=== PATIENT | female | born 1985 | race Caucasian/White ===

== ENCOUNTER 2017-01-28 19:26 | Observation (INO) | payer MEDICAID ==
--- NOTE | 2017-01-28 20:05 | EDM.PDOC ---
ED HPI GENERAL MEDICAL PROBLEM - General Chief Complaint: Genitourinary Problem Stated Complaint: ABD/BACK PAIN-PAINFUL URINATION Time Seen by Provider: 01/28/17 19:40 Source of Information: Reports: Patient History Limitations: Reports: No Limitations - History of Present Illness INITIAL COMMENTS - FREE TEXT/NARRATIVE: pt arrived with severe rt sided flank pain and extending into the groin. She has pain when she voids. Onset: Gradual Duration: Day(s):, Other (Pt has been ill close to 1 week. ) Location: Reports: Abdomen Associated Symptoms: Reports: Fever/Chills, Loss of Appetite, Weakness lower back pain Pain Score (Numeric/FACES): 7 abdominal pain Pain Score (Numeric/FACES): 7 - Related Data Allergies Allergy/AdvReac Type Severity Reaction Status Date / Time tramadol Allergy Seizure Verified 01/28/17 19:44 Home Meds: Home Meds Methadone HCl [Methadone] 180 mg PO DAILY 01/28/17 [History] Ciprofloxacin HCl [Cipro] 500 mg PO BID #10 tablet 01/30/17 [Rx] Phenazopyridine [Pyridium] 100 mg PO TID PRN #15 tab 01/30/17 [Rx] oxyCODONE 5 mg PO Q6H PRN #15 tab 01/30/17 [Rx] Past Medical History Gastrointestinal History: Reports: Hemorrhoids Genitourinary History: Reports: UTI, Recurrent 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: , Other (See Below) Other OB/BYN History: Hx of cysts on bilateral ovaries Musculoskeletal History: Reports: Other (See Below) Other Musculoskeletal History: siatica Neurological History: Reports: Seizure Psychiatric History: Reports: Addiction, Anxiety, Depression, Other (See Below) Other Psychiatric History: opiates - Infectious Disease History Infectious Disease History: Reports: Chicken Pox Social & Family History - Tobacco Use Smoking Status *Q: Never Smoker - Caffeine Use Caffeine Use: Reports: Coffee, Energy Drinks, Soda, Tea - Recreational Drug Use Recreational Drug Use: No ED ROS GENERAL - Review of Systems Review Of Systems: See Below Constitutional: Reports: Chills, Malaise HEENT: Reports: No Symptoms Respiratory: Reports: No Symptoms Cardiovascular: Reports: No Symptoms Endocrine: Reports: No Symptoms GI/Abdominal: Reports: Abdominal Pain, Other (pt has burning when she passes her urine and she has flank pain on the rt and suprapupic pain. ) : Reports: Dysuria, Flank Pain, Frequency, Hematuria Musculoskeletal: Reports: No Symptoms Skin: Reports: No Symptoms Neurological: Reports: No Symptoms ED EXAM, GI/ABD - Physical Exam Exam: See Below Text/Narrative:: pt arrved with sig rt flank pain. Her urine looks very infected. She feels very ill in general. She has been chilling. Exam Limited By: No Limitations General Appearance: Alert, Moderate Distress Ears: Normal TMs Nose: Normal Inspection Throat/Mouth: Normal Inspection Head: Atraumatic Neck: Normal Inspection Respiratory/Chest: No Respiratory Distress Cardiovascular: Regular Rate, Rhythm GI/Abdominal Exam: Tender, Other (pt has tenderness in the rt flank area. She also has sig supra pupic tenderness. She has dysuria when she voids. ) (Female) Exam: Deferred Rectal (Female) Exam: Deferred Back Exam: Normal Inspection Extremities: Normal Inspection Neurological: Alert, Oriented, Normal Cognition Psychiatric: Depressed Mood Course - Vital Signs Last Recorded V/S: Last Vital Signs Temp 37.2 C 01/30/17 12:28 Pulse 74 01/30/17 12:28 Resp 16 01/30/17 12:28 BP 118/69 01/30/17 12:28 Pulse Ox 95 01/30/17 12:28 - Orders/Labs/Meds Labs: Laboratory Tests 01/28/17 01/28/17 01/28/17 Range/Units 20:04 20:14 20:14 WBC 7.1 (4.5-11.0) K/uL RBC 4.39 (3.30-5.50) M/uL Hgb 12.9 (12.0-15.0) g/dL Hct 37.0 (36.0-48.0) % MCV 84 (80-98) fL MCH 29 (27-31) pg MCHC 35 (32-36) % Plt Count 233 (150-400) K/uL Neut % (Auto) 35 L (36-66) % Lymph % (Auto) 51 H (24-44) % [place] % (Auto) 9 H (2-6) % Eos % (Auto) 5 H (2-4) % Baso % (Auto) 1 (0-1) % Sodium 139 L (140-148) mmol/L Potassium 4.0 (3.6-5.2) mmol/L Chloride 103 (100-108) mmol/L Carbon Dioxide 27 (21-32) mmol/L Anion Gap 13.0 (5.0-14.0) mmol/L BUN 8 (7-18) mg/dL Creatinine 0.8 (0.6-1.0) mg/dL Est Cr Clr Drug Dosing 84.29 mL/min Estimated GFR (MDRD) > 60 (>60) Glucose 103 (74-106) mg/dL Lactic Acid (0.4-2.0) mmol/L Calcium 9.1 (8.5-10.1) mg/dL Total Bilirubin 0.2 (0.2-1.0) mg/dL AST 17 (15-37) U/L ALT 49 (12-78) U/L Alkaline Phosphatase 124 H (46-116) U/L Total Protein 7.2 (6.4-8.2) g/dL Albumin 3.4 (3.4-5.0) g/dL Globulin 3.8 H (2.3-3.5) g/dL Albumin/Globulin Ratio 0.9 L (1.2-2.2) Urine Color [place] Urine Appearance Clear Urine pH 6.0 (4.5-8.0) Ur Specific [place] 1.020 (1.008-1.030) Urine Protein 500 H (NEGATIVE) mg/dL Urine Glucose (UA) Normal (NEGATIVE) mg/dL Urine Ketones Negative (NEGATIVE) mg/dL Urine Occult Blood Negative (NEGATIVE) Urine Nitrite Positive H (NEGATIVE) Urine Bilirubin Large (NEGATIVE) Urine Urobilinogen >=12 H (NORMAL) mg/dL Ur Leukocyte Esterase Moderate (NEGATIVE) Urine RBC 5-10 H (0-5) Urine WBC 30-40 H (0-5) Ur Epithelial Cells Moderate Amorphous Sediment Not seen Urine Bacteria Many Urine Mucus Few Urine Other Urine HCG, Qual Urine Opiates Screen (NEGATIVE) Ur Oxycodone Screen (NEGATIVE) Urine Methadone Screen (NEGATIVE) Ur Propoxyphene Screen (NEGATIVE) Ur Barbiturates Screen (NEGATIVE) Ur Tricyclics Screen (NEGATIVE) Ur Phencyclidine Scrn (NEGATIVE) Ur Amphetamine Screen (NEGATIVE) U Methamphetamines Scrn (NEGATIVE) Urine MDMA Screen (NEGATIVE) U Benzodiazepines Scrn (NEGATIVE) U Cocaine Metab Screen (NEGATIVE) U Marijuana (THC) Screen (NEGATIVE) 01/28/17 01/28/17 01/28/17 Range/Units 20:14 21:24 22:30 WBC (4.5-11.0) K/uL RBC (3.30-5.50) M/uL Hgb (12.0-15.0) g/dL Hct (36.0-48.0) % MCV (80-98) fL MCH (27-31) pg MCHC (32-36) % Plt Count (150-400) K/uL Neut % (Auto) (36-66) % Lymph % (Auto) (24-44) % [place] % (Auto) (2-6) % Eos % (Auto) (2-4) % Baso % (Auto) (0-1) % Sodium (140-148) mmol/L Potassium (3.6-5.2) mmol/L Chloride (100-108) mmol/L Carbon Dioxide (21-32) mmol/L Anion Gap (5.0-14.0) mmol/L BUN (7-18) mg/dL Creatinine (0.6-1.0) mg/dL Est Cr Clr Drug Dosing mL/min Estimated GFR (MDRD) (>60) Glucose (74-106) mg/dL Lactic Acid 1.4 (0.4-2.0) mmol/L Calcium (8.5-10.1) mg/dL Total Bilirubin (0.2-1.0) mg/dL AST (15-37) U/L ALT (12-78) U/L Alkaline Phosphatase (46-116) U/L Total Protein (6.4-8.2) g/dL Albumin (3.4-5.0) g/dL Globulin (2.3-3.5) g/dL Albumin/Globulin Ratio (1.2-2.2) Urine Color Urine Appearance Urine pH (4.5-8.0) Ur Specific [place] (1.008-1.030) Urine Protein (NEGATIVE) mg/dL Urine Glucose (UA) (NEGATIVE) mg/dL Urine Ketones (NEGATIVE) mg/dL Urine Occult Blood (NEGATIVE) Urine Nitrite (NEGATIVE) Urine Bilirubin (NEGATIVE) Urine Urobilinogen (NORMAL) mg/dL Ur Leukocyte Esterase (NEGATIVE) Urine RBC (0-5) Urine WBC (0-5) Ur Epithelial Cells Amorphous Sediment Urine Bacteria Urine Mucus Urine Other Urine HCG, Qual Negative Urine Opiates Screen Negative (NEGATIVE) Ur Oxycodone Screen Negative (NEGATIVE) Urine Methadone Screen Positive H (NEGATIVE) Ur Propoxyphene Screen Negative (NEGATIVE) Ur Barbiturates Screen Negative (NEGATIVE) Ur Tricyclics Screen Negative (NEGATIVE) Ur Phencyclidine Scrn Negative (NEGATIVE) Ur Amphetamine Screen Negative (NEGATIVE) U Methamphetamines Scrn Negative (NEGATIVE) Urine MDMA Screen Negative (NEGATIVE) U Benzodiazepines Scrn Positive H (NEGATIVE) U Cocaine Metab Screen Negative (NEGATIVE) U Marijuana (THC) Screen Negative (NEGATIVE) Meds: Medications Discontinued Medications Generic Name Dose Route Start Last Admin Trade Name Freq PRN Reason Stop Dose Admin Acetaminophen 650 mg 01/28/17 23:46 Tylenol PO Q4H PRN Pain (Mild 1-3)/fever Albuterol 2.5 mg 01/28/17 23:46 Proventil Neb Soln NEB Q4H PRN Shortness Of Breath/wheezing Docusate Sodium 100 mg 01/28/17 23:46 01/30/17 08:32 Colace PO 100 mg BID PRN Administration Constipation Enoxaparin Sodium 40 mg 01/29/17 09:00 01/30/17 08:19 Lovenox SUBCUT 40 mg DAILY BRYANT Administration Hydromorphone HCl 0.5 mg 01/28/17 20:49 01/28/17 20:52 Dilaudid IVPUSH 01/28/17 20:50 0.5 mg ONETIME ONE Administration Hydromorphone HCl 1 mg 01/28/17 22:56 01/28/17 23:05 Dilaudid IVPUSH 01/28/17 22:57 1 mg ONETIME ONE Administration Sodium Chloride 1,000 mls @ 999 mls/hr 01/28/17 20:15 01/28/17 20:06 Normal Saline IV 999 mls/hr ASDIRECTED BRYANT Administration Levofloxacin/Dextrose 500 mg/ 100 mls @ 100 mls/hr 01/28/17 21:02 01/28/17 21 :08 Premix IV 01/28/17 22:01 100 mls/hr ONETIME ONE Administration Sodium Chloride 1,000 mls @ 6,306 mls/hr 01/28/17 21:15 Normal Saline IV ASDIRECTED BRYANT Sodium Chloride 1,000 mls @ 999 mls/hr 01/28/17 21:15 01/28/17 21:13 Normal Saline IV 999 mls/hr ASDIRECTED BRYANT Administration Levofloxacin/Dextrose 500 mg/ 100 mls @ 100 mls/hr 01/29/17 21:00 Premix IV Q24H BRYANT Sodium Chloride 1,000 mls @ 125 mls/hr 01/28/17 23:46 01/29/17 08:03 Normal Saline IV 125 mls/hr ASDIRECTED BRYANT Administration Sodium Chloride 1,000 mls @ 75 mls/hr 01/29/17 09:30 01/29/17 19:44 Normal Saline IV 75 mls/hr ASDIRECTED BRYANT Administration Ceftriaxone Sodium 2 gm/ 50 mls @ 100 mls/hr 01/29/17 21:00 01/29/17 20:40 Sodium Chloride IV 100 mls/hr Q24H BRYANT Administration Ibuprofen 800 mg 01/28/17 23:46 01/29/17 07:51 Motrin PO 800 mg Q6H PRN Administration Pain (mild 1-3) Influenza Virus Vaccine 60 mcg 01/29/17 18:00 01/29/17 17:37 Fluzone Quad [id number] IM 01/29/17 18:01 Not Given ONETIME ONE Ketorolac Tromethamine 30 mg 01/28/17 20:26 01/28/17 20:33 Toradol IVPUSH 01/28/17 20:27 30 mg ONETIME ONE Administration Lorazepam 1 mg 01/28/17 23:46 Ativan IV Q6H PRN Nausea/Vomiting Methadone HCl 180 mg 01/29/17 12:00 01/29/17 12:47 Methadone PO Not Given DAILY BRYANT Morphine Sulfate 2 mg 01/28/17 23:46 01/30/17 08:25 Morphine IVPUSH 2 mg Q2H PRN Administration Pain (severe 7-10) Ondansetron HCl 4 mg 01/28/17 23:46 01/29/17 09:54 Zofran Odt PO 4 mg Q6H PRN Administration Nausea able to take PO Ondansetron HCl 4 mg 01/28/17 23:46 Zofran IV Q4H PRN Nausea/Vomiting Oxycodone/Acetaminophen 1 tab 01/28/17 23:46 01/30/17 12:26 Percocet 325-5 Mg PO 1 tab Q4H PRN Administration Pain (moderate 4-6) Pantoprazole Sodium 40 mg 01/29/17 09:00 Protonix Iv IVPUSH DAILY BRYANT Pantoprazole Sodium 40 mg 01/29/17 09:00 01/30/17 08:19 Protonix PO 40 mg ACBREAKFAST BRYANT Administration Phenazopyridine HCl 190 mg 01/28/17 21:15 01/28/17 21:59 Urinary Pain Relief PO 01/28/17 21:16 190 mg ONETIME ONE Administration Phenazopyridine HCl 190 mg 01/29/17 09:29 01/30/17 05:32 Urinary Pain Relief PO 190 mg TIDPC PRN Administration Dysuria Zolpidem Tartrate 5 mg 01/28/17 23:46 Ambien PO BEDTIME PRN Sleep Departure - Departure Time of Disposition: 12:30 Disposition: Admitted As Inpatient 66 Condition: Fair Clinical Impression: Kidney infection, Pyelonephritis - Discharge Information
[2017-01-28] MEDS ORDERED: Sodium Chloride 0.9% 1,000 ML IV SCH ×3 (20:15→21:15)
[2017-01-28] MEDS ORDERED: Ketorolac 30 MG/ML SDV IVPUSH ONE (20:26)
[2017-01-28] MEDS ORDERED: HYDROmorphone 0.5 MG/0.5 ML Syringe IVPUSH ONE (20:49)
[2017-01-28] MEDS ORDERED: Levofloxacin/Dextrose 5%-Water 500 MG in Premix Bag 1 BAG IV ONE (21:02)
[2017-01-28] MEDS ORDERED: Phenazopyridine 95 MG Tab PO ONE (21:15)
[2017-01-28] MEDS ORDERED: Iopamidol 612 MG/ML 150 ML Bottle IV SCH (21:30)
[2017-01-28] MEDS ORDERED: Sodium Chloride 0.9% 100 ML IV SCH (21:30)
[2017-01-28] MEDS ORDERED: HYDROmorphone 1 MG/ML Syringe IVPUSH ONE (22:56)
--- NOTE | 2017-01-28 23:14 | PCM.HP ---
H&P History of Present Illness - General Date of Service: 01/28/17 Admit Problem/Dx: Admission Diagnosis/Problem Admission Diagnosis/Problem Pyelonephritis Source of Information: Patient, Significant Other (Same Sex Partner) History Limitations: Reports: No Limitations - History of Present Illness Initial Comments - Free Text/Narative: pt arrived with severe right sided flank pain and extending into the groin. She has pain when she voids. She reports has been sick for the past 3 to 7 days. feeling nauseated, dry heaves. severe back and low abdomen pain. labs done is ER , CBC, CMP, lactic acid; normal. Urine with micro; +WBC, + nitrate, packed WBC, +leukocytes Imaging; CT abdomen - pelvis negative past medical history -reports opioid addiction -Methadone 180mg daily, her Partner was surprised she was still taking this, then Ms. Randall, reports stopped taking this 5 days ago, was supposed to be dosed tomorrow at [place], [place]. Onset of Symptoms: Reports: Gradual Duration of Symptoms: Reports: Day(s):, Getting Worse Location: Reports: Abdomen, Back, Generalized (feeling of unwellness. ) Quality: Reports: Burning (with voiding), Stabbing, Throbbing Severity: Severe Improves with: Reports: Medication Worsens with: Reports: None Associated Symptoms: Reports: Fever/Chills (report no fever, just chills.), Nausea/Vomiting, Weakness lower back pain Pain Score (Numeric/FACES): 7 abdominal pain Pain Score (Numeric/FACES): 7 - Related Data Allergies/Adverse Reactions: Allergies Allergy/AdvReac Type Severity Reaction Status Date / Time tramadol Allergy Seizure Verified 01/28/17 19:44 Home Medications: Home Meds Methadone HCl [Methadone] 180 mg PO DAILY 01/28/17 [History] Past Medical History Gastrointestinal History: Reports: Hemorrhoids Genitourinary History: Reports: UTI, Recurrent 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: , Other (See Below) Other OB/BYN History: Hx of cysts on bilateral ovaries Musculoskeletal History: Reports: Other (See Below) Other Musculoskeletal History: siatica Neurological History: Reports: Seizure Psychiatric History: Reports: Addiction, Anxiety, Depression, Other (See Below) Other Psychiatric History: opiates - Infectious Disease History Infectious Disease History: Reports: Chicken Pox Social & Family History - Tobacco Use Smoking Status *Q: Former Smoker Used Tobacco, but Quit: Yes Month Tobacco Last Used: quit in 2011 - Caffeine Use Caffeine Use: Reports: Coffee, Energy Drinks, Soda, Tea - Recreational Drug Use Recreational Drug Use: No Drug Use in Last 12 Months: No Recreational Drug Last Use: has been in [facility] since July 2015. - Sexual History Sexual History: Reports: Same Sex Partner - Living Situation & Occupation Living situation: Reports: with Significant Other Occupation: Unemployed (lives with Same Sex partner, Ms. Rm has 4 children ages 2, 10, 14 and 17 yrs[address] [facility] H&P Review of Systems - Review of Systems: Review Of Systems: See Below General: Reports: Chills, Weakness, Decreased Appetite HEENT: Reports: No Symptoms Pulmonary: Reports: No Symptoms Cardiovascular: Reports: No Symptoms Gastrointestinal: Reports: Abdominal Pain, Nausea, Vomiting (dry heaves intermittently) Genitourinary: Reports: Dysuria, Frequency, Burning, Pain, Urgency, Flank Pain ( bilateral ) Musculoskeletal: Reports: Back Pain Skin: Reports: Pallor Psychiatric: Reports: Anxiety Hematologic/Lymphatic: Reports: No Symptoms Immunologic: Reports: No Symptoms Exam - Exam Exam: See Below - Vital Signs Vital Signs: Last Vital Signs Temp 37.6 C 01/28/17 20:58 Pulse 80 01/28/17 20:58 Resp 17 01/28/17 20:58 BP 125/83 01/28/17 20:58 Pulse Ox 96 01/28/17 20:58 Weight: 87.9 kg - Exam General: Alert, Oriented, Cooperative, Sedated, Other (pallor noted. ) HEENT: PERRLA, Conjunctiva Clear, EACs Clear, EOMI, Hearing Intact, Mucosa Moist & [place], Nares Patent, Normal Nasal Septum, Posterior Pharynx Clear, Pupils Equal, Pupils Reactive Neck: Supple, Trachea Midline, 2 Lungs: Clear to Auscultation, Normal Respiratory Effort Cardiovascular: Regular Rate, Regular Rhythm, Normal S1, Normal S2 GI/Abdominal Exam: Normal Bowel Sounds, Soft, Non-Tender, No Organomegaly, No Distention, No Abnormal Bruit, No Mass, Pelvis Stable (Female) Exam: Deferred Rectal (Female) Exam: Deferred Back Exam: Normal Inspection, CVA Tenderness (R), CVA Tenderness (L), Muscle Spasm Extremities: Normal Inspection, Normal Range of Motion, Non-Tender, No Pedal Edema, Normal Capillary Refill Peripheral Pulses: 2+: Dorsalis Pedis (L), Dorsalis Pedis (R) Skin: Warm, Dry, Intact Neurological: Reflexes Equal Bilateral Neuro Extensive - Mental Status: Alert, Oriented x3, Normal Mood/Affect, Normal Cognition Psychiatric: Alert, Normal Affect, Normal Mood - Patient Data Lab Results Last 24 hrs: Laboratory Results - last 24 hr 01/28/17 01/28/17 01/28/17 Range/Units 20:04 20:14 20:14 WBC 7.1 (4.5-11.0) K/uL RBC 4.39 (3.30-5.50) M/uL Hgb 12.9 (12.0-15.0) g/dL Hct 37.0 (36.0-48.0) % MCV 84 (80-98) fL MCH 29 (27-31) pg MCHC 35 (32-36) % Plt Count 233 (150-400) K/uL Neut % (Auto) 35 L (36-66) % Lymph % (Auto) 51 H (24-44) % [place] % (Auto) 9 H (2-6) % Eos % (Auto) 5 H (2-4) % Baso % (Auto) 1 (0-1) % Sodium 139 L (140-148) mmol/L Potassium 4.0 (3.6-5.2) mmol/L Chloride 103 (100-108) mmol/L Carbon Dioxide 27 (21-32) mmol/L Anion Gap 13.0 (5.0-14.0) mmol/L BUN 8 (7-18) mg/dL Creatinine 0.8 (0.6-1.0) mg/dL Est Cr Clr Drug Dosing 84.29 mL/min Estimated GFR (MDRD) > 60 (>60) Glucose 103 (74-106) mg/dL Lactic Acid (0.4-2.0) mmol/L Calcium 9.1 (8.5-10.1) mg/dL Total Bilirubin 0.2 (0.2-1.0) mg/dL AST 17 (15-37) U/L ALT 49 (12-78) U/L Alkaline Phosphatase 124 H (46-116) U/L Total Protein 7.2 (6.4-8.2) g/dL Albumin 3.4 (3.4-5.0) g/dL Globulin 3.8 H (2.3-3.5) g/dL Albumin/Globulin Ratio 0.9 L (1.2-2.2) Urine Color [place] Urine Appearance Clear Urine pH 6.0 (4.5-8.0) Ur Specific [place] 1.020 (1.008-1.030) Urine Protein 500 H (NEGATIVE) mg/dL Urine Glucose (UA) Normal (NEGATIVE) mg/dL Urine Ketones Negative (NEGATIVE) mg/dL Urine Occult Blood Negative (NEGATIVE) Urine Nitrite Positive H (NEGATIVE) Urine Bilirubin Large (NEGATIVE) Urine Urobilinogen >=12 H (NORMAL) mg/dL Ur Leukocyte Esterase Moderate (NEGATIVE) Urine RBC 5-10 H (0-5) Urine WBC 30-40 H (0-5) Ur Epithelial Cells Moderate Amorphous Sediment Not seen Urine Bacteria Many Urine Mucus Few Urine Other Urine HCG, Qual Urine Opiates Screen (NEGATIVE) Ur Oxycodone Screen (NEGATIVE) Urine Methadone Screen (NEGATIVE) Ur Propoxyphene Screen (NEGATIVE) Ur Barbiturates Screen (NEGATIVE) Ur Tricyclics Screen (NEGATIVE) Ur Phencyclidine Scrn (NEGATIVE) Ur Amphetamine Screen (NEGATIVE) U Methamphetamines Scrn (NEGATIVE) Urine MDMA Screen (NEGATIVE) U Benzodiazepines Scrn (NEGATIVE) U Cocaine Metab Screen (NEGATIVE) U Marijuana (THC) Screen (NEGATIVE) 01/28/17 01/28/17 01/28/17 Range/Units 20:14 21:24 22:30 WBC (4.5-11.0) K/uL RBC (3.30-5.50) M/uL Hgb (12.0-15.0) g/dL Hct (36.0-48.0) % MCV (80-98) fL MCH (27-31) pg MCHC (32-36) % Plt Count (150-400) K/uL Neut % (Auto) (36-66) % Lymph % (Auto) (24-44) % [place] % (Auto) (2-6) % Eos % (Auto) (2-4) % Baso % (Auto) (0-1) % Sodium (140-148) mmol/L Potassium (3.6-5.2) mmol/L Chloride (100-108) mmol/L Carbon Dioxide (21-32) mmol/L Anion Gap (5.0-14.0) mmol/L BUN (7-18) mg/dL Creatinine (0.6-1.0) mg/dL Est Cr Clr Drug Dosing mL/min Estimated GFR (MDRD) (>60) Glucose (74-106) mg/dL Lactic Acid 1.4 (0.4-2.0) mmol/L Calcium (8.5-10.1) mg/dL Total Bilirubin (0.2-1.0) mg/dL AST (15-37) U/L ALT (12-78) U/L Alkaline Phosphatase (46-116) U/L Total Protein (6.4-8.2) g/dL Albumin (3.4-5.0) g/dL Globulin (2.3-3.5) g/dL Albumin/Globulin Ratio (1.2-2.2) Urine Color Urine Appearance Urine pH (4.5-8.0) Ur Specific [place] (1.008-1.030) Urine Protein (NEGATIVE) mg/dL Urine Glucose (UA) (NEGATIVE) mg/dL Urine Ketones (NEGATIVE) mg/dL Urine Occult Blood (NEGATIVE) Urine Nitrite (NEGATIVE) Urine Bilirubin (NEGATIVE) Urine Urobilinogen (NORMAL) mg/dL Ur Leukocyte Esterase (NEGATIVE) Urine RBC (0-5) Urine WBC (0-5) Ur Epithelial Cells Amorphous Sediment Urine Bacteria Urine Mucus Urine Other Urine HCG, Qual Negative Urine Opiates Screen Negative (NEGATIVE) Ur Oxycodone Screen Negative (NEGATIVE) Urine Methadone Screen Positive H (NEGATIVE) Ur Propoxyphene Screen Negative (NEGATIVE) Ur Barbiturates Screen Negative (NEGATIVE) Ur Tricyclics Screen Negative (NEGATIVE) Ur Phencyclidine Scrn Negative (NEGATIVE) Ur Amphetamine Screen Negative (NEGATIVE) U Methamphetamines Scrn Negative (NEGATIVE) Urine MDMA Screen Negative (NEGATIVE) U Benzodiazepines Scrn Positive H (NEGATIVE) U Cocaine Metab Screen Negative (NEGATIVE) U Marijuana (THC) Screen Negative (NEGATIVE) Result Diagrams: 01/28/17 20:14 01/28/17 20:14 *Q Meaningful Use (ADM) - VTE *Q VTE Criteria *Q: - Stroke *Q Stroke Criteria *Q: - AMI *Q AMI Criteria *Q: - Problem List (1) Pyelonephritis SNOMED Code(s): 27399908 ICD Code: N12 - TUBULO-INTERSTITIAL NEPHRITIS, NOT SPCF ACUTE OR CHRONIC Status: Acute Priority: High Current Visit: Yes (2) Opioid type dependence in remission SNOMED Code(s): 677777162 ICD Code: F11.21 - OPIOID DEPENDENCE, IN REMISSION Status: Acute Priority : High Current Visit: Yes (3) Methadone maintenance therapy patient SNOMED Code(s): 326379273 ICD Code: F11.20 - OPIOID DEPENDENCE, UNCOMPLICATED Status: Acute Priority: High Current Visit: Yes Problem List Initiated/Reviewed/Updated: Yes Orders Last 24hrs: Active Orders 24 hr Category Date Time Status Patient Status Manage Transfer [TRANSFER] Routine ADT 01/28/17 22:33 Active Abdomen Pelvis wo Cont [CT] Stat Exams 01/28/17 21:21 Taken CULTURE BLOOD [BC] Urgent Lab 01/28/17 20:25 Received CULTURE BLOOD [BC] Urgent Lab 01/28/17 20:38 Received CULTURE URINE [RM] Stat Lab 01/28/17 20:53 Received Sodium Chloride 0.9% [Normal Saline] 1,000 ml Med 01/28/17 20:15 Active IV ASDIRECTED Sodium Chloride 0.9% [Normal Saline] 1,000 ml Med 01/28/17 21:15 Active IV ASDIRECTED Blood Culture x2 Reflex Set [OM.PC] Urgent Oth 01/28/17 20:16 Ordered Resuscitation Status Routine Resus Stat 01/28/17 22:44 Ordered Medication Orders Sodium Chloride (Normal Saline) 1,000 mls @ 999 mls/hr IV ASDIRECTED [facility] Last Admin: 01/28/17 20:06 Dose: 999 mls/hr Sodium Chloride (Normal Saline) 1,000 mls @ 999 mls/hr IV ASDIRECTED [facility] Last Admin: 01/28/17 21:13 Dose: 999 mls/hr Assessment/Plan Comment:: ASSESSMENT / PLAN -pt arrived with severe right sided flank pain and extending into the groin. She has pain when she voids. She reports has been sick for the past 3 to 7 days. feeling nauseated, dry heaves. severe back and low abdomen pain. labs done is ER , CBC, CMP, lactic acid; normal. Urine with micro; +WBC, + nitrate, packed WBC, +leukocytes Imaging; CT abdomen - pelvis negative past medical history -reports opioid addiction -Methadone 180mg daily, her Partner was surprised she was still taking this, then Ms. Randall, reports stopped taking this 5 days ago, was supposed to be dosed tomorrow at [place], [place]. Plan -Admit Observation [facility] for further monitoring Pyelonephritis -Levaquin 500 mg IV every 24 hours -Iv fluids Normal Saline at 125ml/hr -pain medications ordered. -urine and blood cultures pending -Advise to notify nurses of any fever, chills, worsen pain or other symptoms -And a.m. labs: CBC, BMP,. Opioid Type dependence in remission, Methadone maintenance therapy -Methadone 180 mg daily, conflicts if she is taking this medication, will not order until further evaluation -consulted with Hospitalist, lizy to treat for pain with narcotic or NSAIDS Maintenance issues -Orders home meds: -Nutrition: Regular diet -Peters catheter not indicated at this time -DVT:Lovenox 30mg subcut daily -GI Prophalaxis; Protonix 40mg daily CODE STATUS: Full Admission status: Admit to Observation -I expect this patient to stay less than 24 hours, not to exceed 96 hours for evaluation and management of this problem. Disposition: home with family Primary care provider:Dr. Melani Vera Hospitalist: Dr. Hurtado
[2017-01-28] MEDS ORDERED: LORazepam 2 MG/ML MDV IV PRN (23:46)
[2017-01-28] MEDS ORDERED: Albuterol 0.083% 2.5 MG/3 ML Neb Soln NEB PRN (23:46)
[2017-01-28] MEDS ORDERED: Zolpidem 5 MG Tab PO PRN (23:46)
[2017-01-28] MEDS ORDERED: Acetaminophen 325 MG Tab PO PRN (23:46)
[2017-01-28] MEDS ORDERED: Ondansetron 4 MG/2 ML SDV IV PRN (23:46)
[2017-01-28] MEDS ORDERED: Ondansetron 4 MG Tab.DIS PO PRN (23:46)
[2017-01-28] MEDS ORDERED: Ibuprofen 800 MG Tab PO PRN (23:46)
[2017-01-29] MEDS: Acetaminophen/oxyCODONE 325-5 MG Tab PO PRN ×4 (00:26→23:33)
[2017-01-29] MEDS: Sodium Chloride 0.9% 1,000 ML IV SCH ×2 (00:26→08:03)
[2017-01-29] MEDS: Docusate Sodium 100 MG Cap PO PRN ×3 (00:54→20:39)
[2017-01-29] MEDS: Morphine 2 MG/ML Syringe IVPUSH PRN ×5 (03:46→20:39)
[2017-01-29] MEDS ORDERED: FLU Vacc QS 2017-18 (36mos UP)/PF 60 MCG/0.5 ML Syringe IM SCH (09:00)
[2017-01-29] MEDS ORDERED: Pantoprazole 40 MG Vial IVPUSH SCH (09:00)
[2017-01-29] MEDS: Pantoprazole 40 MG Tab.CR PO SCH (09:26)
[2017-01-29] MEDS: Enoxaparin 40 MG/0.4 ML Syringe SUBCUT SCH (09:26)
[2017-01-29] MEDS ORDERED: Sodium Chloride 0.9% 1,000 ML IV SCH (09:30)
--- NOTE | 2017-01-29 09:33 | PCM.PN ---
- General Info Date of Service: 01/29/17 Functional Status: Reports: Pain Controlled, Tolerating Diet - Review of Systems General: Denies: Fever Gastrointestinal: Reports: Abdominal Pain Genitourinary: Reports: Dysuria Systems Review Comment:: No acute events since admission. Pain control improving but patient still reporting moderate lower abdominal pain. Also some mild epigastric pain. No complaints of nausea and tolerated breakfast well. No significant fevers since the time of admission. - Patient Data Vitals - Most Recent: Last Vital Signs Temp 36.3 C 01/29/17 07:21 Pulse 73 01/29/17 07:21 Resp 16 01/29/17 07:21 BP 121/63 01/29/17 07:21 Pulse Ox 94 L 01/29/17 07:21 Weight - Most Recent: 87.9 kg I&O - Last 24 Hours: Intake & Output 01/28/17 01/29/17 01/29/17 22:59 06:59 14:59 Intake Total 1290 Output Total 200 Balance 1090 Lab Results Last 24 Hours: Laboratory Results - last 24 hr 01/29/17 01/29/17 Range/Units 05:45 05:45 WBC 6.3 (4.5-11.0) K/uL RBC 4.14 (3.30-5.50) M/uL Hgb 11.8 L (12.0-15.0) g/dL Hct 35.2 L (36.0-48.0) % MCV 85 (80-98) fL MCH 29 (27-31) pg MCHC 34 (32-36) % Plt Count 212 (150-400) K/uL Neut % (Auto) 29 L (36-66) % Lymph % (Auto) 55 H (24-44) % [place] % (Auto) 10 H (2-6) % Eos % (Auto) 5 H (2-4) % Baso % (Auto) 0 (0-1) % Sodium 141 (140-148) mmol/L Potassium 4.1 (3.6-5.2) mmol/L Chloride 107 (100-108) mmol/L Carbon Dioxide 26 (21-32) mmol/L Anion Gap 8.4 (5.0-14.0) mmol/L BUN 10 (7-18) mg/dL Creatinine 0.8 (0.6-1.0) mg/dL Est Cr Clr Drug Dosing 80.59 mL/min Estimated GFR (MDRD) > 60 (>60) Glucose 120 H (74-106) mg/dL Calcium 8.4 L (8.5-10.1) mg/dL Med Orders - Current: Current Medications Acetaminophen (Tylenol) 650 mg PO Q4H PRN PRN Reason: Pain (Mild 1-3)/fever Albuterol (Proventil Neb Soln) 2.5 mg NEB Q4H PRN PRN Reason: Shortness Of Breath/wheezing Docusate Sodium (Colace) 100 mg PO BID PRN PRN Reason: Constipation Last Admin: 01/29/17 00:54 Dose: 100 mg Enoxaparin Sodium (Lovenox) 40 mg SUBCUT DAILY [facility] Last Admin: 01/29/17 09:26 Dose: 40 mg Levofloxacin/Dextrose 500 mg/ (Premix) 100 mls @ 100 mls/hr IV Q24H [facility] Ibuprofen (Motrin) 800 mg PO Q6H PRN PRN Reason: Pain (mild 1-3) Last Admin: 01/29/17 07:51 Dose: 800 mg Influenza Virus Vaccine (Fluzone Quad [id number]) 60 mcg IM .ONCE [facility] Lorazepam (Ativan) 1 mg IV Q6H PRN PRN Reason: Nausea/Vomiting Morphine Sulfate (Morphine) 2 mg IVPUSH Q2H PRN PRN Reason: Pain (severe 7-10) Last Admin: 01/29/17 05:49 Dose: 2 mg Ondansetron HCl (Zofran Odt) 4 mg PO Q6H PRN PRN Reason: Nausea able to take PO Ondansetron HCl (Zofran) 4 mg IV Q4H PRN PRN Reason: Nausea/Vomiting Oxycodone/Acetaminophen (Percocet 325-5 Mg) 1 tab PO Q4H PRN PRN Reason: Pain (moderate 4-6) Last Admin: 01/29/17 00:26 Dose: 1 tab Pantoprazole Sodium (Protonix) 40 mg PO ACBREAKFAST [facility] Last Admin: 01/29/17 09:26 Dose: 40 mg Zolpidem Tartrate (Ambien) 5 mg PO BEDTIME PRN PRN Reason: Sleep Discontinued Medications Hydromorphone HCl (Dilaudid) 0.5 mg IVPUSH ONETIME ONE Stop: 01/28/17 20:50 Last Admin: 01/28/17 20:52 Dose: 0.5 mg Hydromorphone HCl (Dilaudid) 1 mg IVPUSH ONETIME ONE Stop: 01/28/17 22:57 Last Admin: 01/28/17 23:05 Dose: 1 mg Sodium Chloride (Normal Saline) 1,000 mls @ 999 mls/hr IV ASDIRECTED [facility] Last Admin: 01/28/17 20:06 Dose: 999 mls/hr Levofloxacin/Dextrose 500 mg/ (Premix) 100 mls @ 100 mls/hr IV ONETIME ONE Stop: 01/28/17 22:01 Last Admin: 01/28/17 21:08 Dose: 100 mls/hr Sodium Chloride (Normal Saline) 1,000 mls @ 6,306 mls/hr IV ASDIRECTED [facility] Sodium Chloride (Normal Saline) 1,000 mls @ 999 mls/hr IV ASDIRECTED [facility] Last Admin: 01/28/17 21:13 Dose: 999 mls/hr Sodium Chloride (Normal Saline) 1,000 mls @ 125 mls/hr IV ASDIRECTED [facility] Last Admin: 01/29/17 08:03 Dose: 125 mls/hr Ketorolac Tromethamine (Toradol) 30 mg IVPUSH ONETIME ONE Stop: 01/28/17 20:27 Last Admin: 01/28/17 20:33 Dose: 30 mg Pantoprazole Sodium (Protonix Iv) 40 mg IVPUSH DAILY [facility] Phenazopyridine HCl (Urinary Pain Relief) 190 mg PO ONETIME ONE Stop: 01/28/17 21:16 Last Admin: 01/28/17 21:59 Dose: 190 mg - Exam Quality Assessment: No: Supplemental Oxygen General: Alert, Oriented, Cooperative, No Acute Distress Neck: Supple Lungs: Normal Respiratory Effort GI/Abdominal Exam: Soft, No Distention, Tender (mild diffuse, most impressive in epigastrium ) Extremities: No Pedal Edema Skin: Warm, Dry Psy/Mental Status: Alert, Normal Affect - Problem List Review Problem List Initiated/Reviewed/Updated: Yes - My Orders Last 24 Hours: My Active Orders 01/29/17 09:00 FLU Vacc [id number] [id number] UP/PF [Fluzone Quad [id number]] 60 mcg IM .ONCE 01/29/17 09:29 Phenazopyridine [Urinary Pain Relief] 190 mg PO TIDPC PRN 01/29/17 09:30 Sodium Chloride 0.9% [Normal Saline] 1,000 ml IV ASDIRECTED - Plan Plan:: ASSESSMENT / PLAN Acute cystitis without hematuria - initially some concern for pyelonephritis but CT scan did not show evidence for pyelonephritis. Most of her pain is lower abdominal at this time. Vital signs have been stable. Pain control slowly improving. -ceftriaxone to start tonight -Iv fluids Normal Saline at 75ml/hr -pain medications ordered. -f/u cultures -pain control Opioid Type dependence in remission - no longer on Methadone maintenance therapy as of a few days ago. -Pain control Maintenance issues -Nutrition: Regular diet -Peters catheter not indicated at this time -DVT:Lovenox 30mg subcut daily -GI Prophalaxis; Protonix 40mg daily Admission status: Admit to Observation -I expect this patient to stay less than 24 hours, not to exceed 96 hours for evaluation and management of this problem. Disposition: home with family in one or 2 days Primary care provider:Dr. Melani Hurtado MD
[2017-01-29] MEDS ORDERED: Methadone 10 MG Tab PO SCH (12:00)
[2017-01-29] MEDS: Phenazopyridine 95 MG Tab PO PRN ×2 (14:12→20:39)
[2017-01-29] MEDS ORDERED: FLU Vacc QS 2017-18 (36mos UP)/PF 60 MCG/0.5 ML Syringe IM ONE (18:00)
[2017-01-29] MEDS ORDERED: cefTRIAXone 2 GM in Sodium Chloride 0.9% 50 ML IV SCH (21:00)
[2017-01-29] MEDS ORDERED: Levofloxacin/Dextrose 5%-Water 500 MG in Premix Bag 1 BAG IV SCH (21:00)
[2017-01-30] MEDS: Morphine 2 MG/ML Syringe IVPUSH PRN ×2 (02:17→08:25)
[2017-01-30] MEDS: Acetaminophen/oxyCODONE 325-5 MG Tab PO PRN ×2 (05:26→12:26)
[2017-01-30] MEDS: Phenazopyridine 95 MG Tab PO PRN (05:32)
[2017-01-30] MEDS: Enoxaparin 40 MG/0.4 ML Syringe SUBCUT SCH (08:19)
[2017-01-30] MEDS: Pantoprazole 40 MG Tab.CR PO SCH (08:19)
[2017-01-30] MEDS: Docusate Sodium 100 MG Cap PO PRN (08:32)
--- NOTE | 2017-01-30 11:54 | PCM.DCSUM1 ---
Discharge Summary - Hospital Course Brief History: 31-year-old female with history of opioid dependence who presented with fevers and dysuria and was admitted for management of acute cystitis and possibly pyelonephritis. - Discharge Data Discharge Date: 01/30/17 Discharge Disposition: Home, Self-Care 01 Condition: Fair - Discharge Diagnosis/Problem(s) (1) Acute cystitis without hematuria SNOMED Code(s): 87758978 ICD Code: N30.00 - ACUTE CYSTITIS WITHOUT HEMATURIA Status: Acute (2) Opioid type dependence in remission SNOMED Code(s): 879698311 ICD Code: F11.21 - OPIOID DEPENDENCE, IN REMISSION Status: Chronic - Patient Summary/Data Labs Pending at D/C: final results of the urine culture which are growing a gram-negative petey at the time of discharge Hospital Course: Philomena presented to the emergency room with flank pain, dysuria and low-grade fever. Workup in the emergency room suggested urinary tract infection and there was some concern for pyelonephritis though CT scan did not confirm the presence of pyelonephritis. She was started on broad-spectrum antibiotics and admitted to the hospital for further management. Most significant issue following admission was lower abdominal pain. This did improve over the course of a couple of days in the hospital. She has been afebrile. Her white blood cell count has remained normal. She has tolerated a regular diet without nausea or difficulty. Pain has been improving each day and she has had good control utilizing oral medications. Her urine culture is still pending but is growing a gram-negative petey at the time of discharge. She is improved enough that I believe she is safe for outpatient management. She will receive 5 additional days of antibiotic therapy with ciprofloxacin. Symptomatic management will be with Pyridium, oxycodone as well as acetaminophen and ibuprofen. I will contact her if the urine culture ends up crying a bacteria that is resistant to the ciprofloxacin. She will continue her daily methadone dosing. - Patient Instructions Diet: Regular Diet as Tolerated Activity: As Tolerated Driving: Do Not Drive (if taking pain pills) Showering/Bathing: May Shower Notify Provider of: Fever, Increased Pain, Nausea and/or Vomiting Other/Special Instructions: 1. You were in the hospital for management of a urinary tract infection. Initially there was some concern for kidney infection though the CT scan did not show evidence for infection involving the kidney. Your condition has been improving with antibiotics, IV fluids and pain control. I recommend 5 additional days of antibiotic therapy with ciprofloxacin. You will take this medication twice daily and your first dose will be due tonight. 2. Continue your usual home medications as previously prescribed. 3. Follow up if your symptoms do not continue to get better or if they worsen. 4. Please seek medical attention if you develop fever greater than 101, have severe abdominal pain, persistent vomiting or severe diarrhea. - Discharge Plan Prescriptions/Med Rec: Ciprofloxacin HCl [Cipro] 500 mg PO BID #10 tablet oxyCODONE 5 mg PO Q6H PRN #15 tab PRN Reason: Pain Phenazopyridine [Pyridium] 100 mg PO TID PRN #15 tab PRN Reason: Dysuria Home Medications: Home Meds Methadone HCl [Methadone] 180 mg PO DAILY 01/28/17 [History] Ciprofloxacin HCl [Cipro] 500 mg PO BID #10 tablet 01/30/17 [Rx] Phenazopyridine [Pyridium] 100 mg PO TID PRN #15 tab 01/30/17 [Rx] oxyCODONE 5 mg PO Q6H PRN #15 tab 01/30/17 [Rx] Patient Handouts: Urinary Tract Infection, Adult, Ciprofloxacin tablets Referrals: Melani Vera MD [Primary Care Provider] - (f/u as needed after the hospital stay) - Discharge Summary/Plan Comment DC Time >30 min.: No (25) - Patient Data Vitals - Most Recent: Last Vital Signs Temp 36.8 C 01/30/17 08:15 Pulse 68 01/30/17 08:15 Resp 16 01/30/17 08:15 BP 106/64 01/30/17 08:15 Pulse Ox 94 L 01/30/17 08:15 Weight - Most Recent: 87.9 kg I&O - Last 24 hours: Intake & Output 01/29/17 01/30/17 01/30/17 22:59 06:59 14:59 Intake Total 1188 1261 Output Total 600 250 300 Balance 588 1011 -300 Med Orders - Current: Current Medications Acetaminophen (Tylenol) 650 mg PO Q4H PRN PRN Reason: Pain (Mild 1-3)/fever Albuterol (Proventil Neb Soln) 2.5 mg NEB Q4H PRN PRN Reason: Shortness Of Breath/wheezing Docusate Sodium (Colace) 100 mg PO BID PRN PRN Reason: Constipation Last Admin: 01/30/17 08:32 Dose: 100 mg Enoxaparin Sodium (Lovenox) 40 mg SUBCUT DAILY [facility] Last Admin: 01/30/17 08:19 Dose: 40 mg Sodium Chloride (Normal Saline) 1,000 mls @ 75 mls/hr IV ASDIRECTED [facility] Last Admin: 01/29/17 19:44 Dose: 75 mls/hr Ceftriaxone Sodium 2 gm/ (Sodium Chloride) 50 mls @ 100 mls/hr IV Q24H [facility] Last Admin: 01/29/17 20:40 Dose: 100 mls/hr Ibuprofen (Motrin) 800 mg PO Q6H PRN PRN Reason: Pain (mild 1-3) Last Admin: 01/29/17 07:51 Dose: 800 mg Lorazepam (Ativan) 1 mg IV Q6H PRN PRN Reason: Nausea/Vomiting Morphine Sulfate (Morphine) 2 mg IVPUSH Q2H PRN PRN Reason: Pain (severe 7-10) Last Admin: 01/30/17 08:25 Dose: 2 mg Ondansetron HCl (Zofran Odt) 4 mg PO Q6H PRN PRN Reason: Nausea able to take PO Last Admin: 01/29/17 09:54 Dose: 4 mg Ondansetron HCl (Zofran) 4 mg IV Q4H PRN PRN Reason: Nausea/Vomiting Oxycodone/Acetaminophen (Percocet 325-5 Mg) 1 tab PO Q4H PRN PRN Reason: Pain (moderate 4-6) Last Admin: 01/30/17 05:26 Dose: 1 tab Pantoprazole Sodium (Protonix) 40 mg PO ACBREAKFAST [facility] Last Admin: 01/30/17 08:19 Dose: 40 mg Phenazopyridine HCl (Urinary Pain Relief) 190 mg PO TIDPC PRN PRN Reason: Dysuria Last Admin: 01/30/17 05:32 Dose: 190 mg Zolpidem Tartrate (Ambien) 5 mg PO BEDTIME PRN PRN Reason: Sleep Discontinued Medications Hydromorphone HCl (Dilaudid) 0.5 mg IVPUSH ONETIME ONE Stop: 01/28/17 20:50 Last Admin: 01/28/17 20:52 Dose: 0.5 mg Hydromorphone HCl (Dilaudid) 1 mg IVPUSH ONETIME ONE Stop: 01/28/17 22:57 Last Admin: 01/28/17 23:05 Dose: 1 mg Sodium Chloride (Normal Saline) 1,000 mls @ 999 mls/hr IV ASDIRECTED [facility] Last Admin: 01/28/17 20:06 Dose: 999 mls/hr Levofloxacin/Dextrose 500 mg/ (Premix) 100 mls @ 100 mls/hr IV ONETIME ONE Stop: 01/28/17 22:01 Last Admin: 01/28/17 21:08 Dose: 100 mls/hr Sodium Chloride (Normal Saline) 1,000 mls @ 6,306 mls/hr IV ASDIRECTED [facility] Sodium Chloride (Normal Saline) 1,000 mls @ 999 mls/hr IV ASDIRECTED [facility] Last Admin: 01/28/17 21:13 Dose: 999 mls/hr Levofloxacin/Dextrose 500 mg/ (Premix) 100 mls @ 100 mls/hr IV Q24H [facility] Sodium Chloride (Normal Saline) 1,000 mls @ 125 mls/hr IV ASDIRECTED [facility] Last Admin: 01/29/17 08:03 Dose: 125 mls/hr Influenza Virus Vaccine (Fluzone Quad [id number]) 60 mcg IM ONETIME ONE Stop: 01/29/17 18:01 Last Admin: 01/29/17 17:37 Dose: Not Given Ketorolac Tromethamine (Toradol) 30 mg IVPUSH ONETIME ONE Stop: 01/28/17 20:27 Last Admin: 01/28/17 20:33 Dose: 30 mg Methadone HCl (Methadone) 180 mg PO DAILY [facility] Last Admin: 01/29/17 12:47 Dose: Not Given Pantoprazole Sodium (Protonix Iv) 40 mg IVPUSH DAILY [facility] Phenazopyridine HCl (Urinary Pain Relief) 190 mg PO ONETIME ONE Stop: 01/28/17 21:16 Last Admin: 01/28/17 21:59 Dose: 190 mg - Exam Quality Assessment: Denies: Supplemental Oxygen General: Reports: Alert, Oriented, Cooperative, No Acute Distress Neck: Reports: Supple Lungs: Reports: Normal Respiratory Effort GI/Abdominal Exam: No Distention Skin: Reports: Warm, Dry Psy/Mental Status: Reports: Alert, Normal Affect *Q Meaningful Use (DIS) - VTE *Q VTE Criteria *Q: - Stroke *Q Stroke Criteria *Q: - AMI *Q AMI Criteria *Q:
== END 2017-01-30 13:47 | disposition home or self-care (01) ==
LOC: JP.ED 19:26 → JP.MS 23:33
PROVIDERS: ADMIT Internal Medicine; ATTEND Internal Medicine
DX: N30.00 Acute cystitis without hematuria (principal); F11.21 Opioid dependence, in remission; F41.9 Anxiety disorder, unspecified; F32.9 Major depressive disorder, single episode, unspecified; Z79.899 Other long term (current) drug therapy; Z79.2 Long term (current) use of antibiotics; Z88.8 Allergy status to other drugs, medicaments and biological substances; Z87.891 Personal history of nicotine dependence
CPT/HCPCS: 36415; 74176; 80048; 80053; 80305; 81001; 81025; 83605; 85025; 87040; 87086; 87088; 87186; 96361; 96365; 96375; 96376; 99285; A9270; G0008; J0696; J1170; J1650; J1885; J1956; J2270; J7040; J7050; 90686; 96368; 96372; G0378

== ENCOUNTER 2017-04-26 23:11 | Emergency (ER) | payer MEDICAID ==
--- NOTE | 2017-04-26 23:52 | EDM.PDOC ---
ED HPI GENERAL MEDICAL PROBLEM - General Chief Complaint: Genitourinary Problem Stated Complaint: BLOOD IN URINE Time Seen by Provider: 04/26/17 23:30 Source of Information: Reports: Patient History Limitations: Reports: No Limitations - History of Present Illness INITIAL COMMENTS - FREE TEXT/NARRATIVE: 31-year-old female who had an episode of pyelonephritis last fall has redeveloped dysuria and hematuria over the past 4 days. Also persistent abdominal pain, especially on the left side. She's had chills and malaise, unsure if she's had fever. Some nausea or vomiting, denies diarrhea. No cough or shortness of breath. 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: , Other (See Below) Other OB/BYN History: Hx of cysts on bilateral ovaries Musculoskeletal History: Reports: Other (See Below) Other Musculoskeletal History: siatica Neurological History: Reports: Seizure Psychiatric History: Reports: Addiction, Anxiety, Depression, Other (See Below) Other Psychiatric History: opiates Endocrine/Metabolic History: Reports: None - Infectious Disease History Infectious Disease History: Reports: Chicken Pox - Past Surgical History Endocrine Surgical History: Reports: None Social & Family History - Family History Family Medical History: Noncontributory - Tobacco Use Smoking Status *Q: Former Smoker Used Tobacco, but Quit: Yes Month Tobacco Last Used: August Second Hand Smoke Exposure: No - Caffeine Use Caffeine Use: Reports: Coffee, Energy Drinks, Soda, Tea Other Caffeine Use: 1 energy drink/day. 2-3 cups coffee/day. - Alcohol Use Days Per Week of Alcohol Use: 0 - Recreational Drug Use Recreational Drug Use: No Drug Use in Last 12 Months: No Recreational Drug Use Frequency: Patient Refuses To Answer Recreational Drug Last Use: has been in [employer] [facility] since July 2015. - Sexual History Sexual History: Reports: Same Sex Partner - Living Situation & Occupation Living situation: Reports: with Significant Other Occupation: Unemployed (lives with Same Sex partner, Ms. Rm has 4 children ages 2, 10, 14 and 17 yrs[address] lives in [facility] ED ROS GENERAL - Review of Systems Review Of Systems: See Below Constitutional: Reports: Chills, Malaise HEENT: Reports: No Symptoms Respiratory: Denies: Shortness of Breath, Cough Cardiovascular: Denies: Chest Pain GI/Abdominal: Reports: Abdominal Pain, Nausea. Denies: Constipation, Diarrhea, Vomiting : Reports: Dysuria, Hematuria Skin: Reports: No Symptoms Neurological: Reports: No Symptoms Psychiatric: Reports: Other (History of narcotic dependence) ED EXAM, GENERAL - Physical Exam Exam: See Below Exam Limited By: No Limitations General Appearance: Alert, Anxious, Mild Distress (Appears uncomfortable) Respiratory/Chest: No Respiratory Distress, Lungs Clear Cardiovascular: Regular Rate, Rhythm GI/Abdominal: Soft, Tender (Reacts with tenderness and slight guarding along the left upper quadrant and left abdomen) Neurological: Alert, Oriented Psychiatric: Anxious, Flat Affect Skin Exam: Warm, Dry Course - Vital Signs Last Recorded V/S: Last Vital Signs Temp 97.3 F 04/26/17 23:28 Pulse 97 04/27/17 01:59 Resp 16 04/27/17 01:59 BP 123/69 04/27/17 01:59 Pulse Ox 95 04/27/17 01:59 - Orders/Labs/Meds Orders: Active Orders 24 hr Category Date Time Status CULTURE URINE [RM] Stat Lab 04/27/17 00:01 Received UA W/MICROSCOPIC [URIN] Urgent Lab 04/26/17 23:37 Ordered Labs: Laboratory Tests 04/26/17 04/26/17 Range/Units 23:50 23:50 WBC 7.2 (4.5-11.0) K/uL RBC 4.86 (3.30-5.50) M/uL Hgb 13.9 D (12.0-15.0) g/dL Hct 39.8 (36.0-48.0) % MCV 82 (80-98) fL MCH 29 (27-31) pg MCHC 35 (32-36) % Plt Count 223 (150-400) K/uL Neut % (Auto) 51 (36-66) % Lymph % (Auto) 37 (24-44) % [place] % (Auto) 10 H (2-6) % Eos % (Auto) 1 L (2-4) % Baso % (Auto) 0 (0-1) % Sodium 138 L (140-148) mmol/L Potassium 4.0 (3.6-5.2) mmol/L Chloride 103 (100-108) mmol/L Carbon Dioxide 25 (21-32) mmol/L Anion Gap 14.0 (5.0-14.0) mmol/L BUN 9 (7-18) mg/dL Creatinine 0.7 (0.6-1.0) mg/dL Est Cr Clr Drug Dosing 92.10 mL/min Estimated GFR (MDRD) > 60 (>60) Glucose 99 (74-106) mg/dL Calcium 9.2 (8.5-10.1) mg/dL Total Bilirubin 0.5 D (0.2-1.0) mg/dL AST 25 (15-37) U/L ALT 80 H (12-78) U/L Alkaline Phosphatase 84 (46-116) U/L C-Reactive Protein 0.12 (0.0-0.3) mg/dL Total Protein 7.1 (6.4-8.2) g/dL Albumin 3.7 (3.4-5.0) g/dL Globulin 3.4 (2.3-3.5) g/dL Albumin/Globulin Ratio 1.1 L (1.2-2.2) Amylase 29 (25-115) U/L Lipase 91 (73-393) U/L Meds: Medications Discontinued Medications Generic Name Dose Route Start Last Admin Trade Name Freq PRN Reason Stop Dose Admin Ceftriaxone Sodium 1 gm/ 50 mls @ 100 mls/hr 04/27/17 00:10 04/27/17 00:21 Sodium Chloride IV 04/27/17 00:39 100 mls/hr ONETIME ONE Administration Sodium Chloride 1,000 mls @ 1,000 mls/hr 04/27/17 00:15 04/27/17 00:20 Normal Saline IV 1,000 mls/hr ASDIRECTED [facility] Administration Ketorolac Tromethamine 30 mg 04/27/17 00:10 04/27/17 00:22 Toradol IVPUSH 04/27/17 00:11 30 mg ONETIME ONE Administration - Re-Assessments/Exams Free Text/Narrative Re-Assessment/Exam: 04/26/17 23:55 A UA was obtained, also a CBC, CMP, amylase lipase and CRP were obtained. 04/27/17 00:27 UA revealed WBCs, RBCs and many bacteria, also many epithelial cells. White count was normal, CRP was normal, all other labs normal and she was afebrile. I reviewed her past record from her admission last fall, it was very similar with even a normal CAT scan that showed no evidence of pyelonephritis. She was given 1 g of Rocephin, 30 mg of IV Toradol and will be treated with cephalexin 500 mg 3 times a day for the next 7 days. She can return if worsening. Departure - Departure Time of Disposition: 02:00 Disposition: Home, Self-Care 01 Condition: Good Clinical Impression: UTI, Urinary tract infectious disease - Discharge Information Instructions: Urinary Tract Infection, Adult, [id number] Referrals: PCP,None [Primary Care Provider] - Forms: ED Department Discharge Care Plan Goals: Fill antibiotic prescription tomorrow and start taking 3 times a day until gone. Drink lots of water, ibuprofen or naproxen should help with pain. Return if worsening such as persistent fever or vomiting your medication. - My Orders Last 24 Hours: My Active Orders 04/26/17 23:37 UA W/MICROSCOPIC [URIN] Urgent 04/27/17 00:01 CULTURE URINE [RM] Stat - Assessment/Plan Last 24 Hours: My Active Orders 04/26/17 23:37 UA W/MICROSCOPIC [URIN] Urgent 04/27/17 00:01 CULTURE URINE [RM] Stat
[2017-04-27] MEDS ORDERED: Ketorolac 30 MG/ML SDV IVPUSH ONE (00:10)
[2017-04-27] MEDS ORDERED: cefTRIAXone 1 GM in Sodium Chloride 0.9% 50 ML IV ONE (00:10)
[2017-04-27] MEDS ORDERED: Sodium Chloride 0.9% 1,000 ML IV SCH (00:15)
== END 2017-04-27 02:00 | disposition home or self-care (01) ==
LOC: JP.ED 23:11
DX: N39.0 Urinary tract infection, site not specified (principal); Z88.6 Allergy status to analgesic agent; Z79.899 Other long term (current) drug therapy; Z87.891 Personal history of nicotine dependence
CPT/HCPCS: 36415; 80053; 82150; 83690; 85025; 86140; 87086; 87088; 87186; 96365; 96375; 99284; J0696; J1885; J7040; J7050

== ENCOUNTER 2017-06-07 16:39 | Inpatient (IN) | payer MEDICAID ==
--- NOTE | 2017-06-07 18:25 | EDM.PDOC ---
ED HPI GENERAL MEDICAL PROBLEM - General Chief Complaint: Abdominal Pain Stated Complaint: ILLNESS Time Seen by Provider: 06/07/17 18:25 Source of Information: Reports: Patient History Limitations: Reports: No Limitations - History of Present Illness INITIAL COMMENTS - FREE TEXT/NARRATIVE: pt has lower abdomanal pain and she has sig lft flank pain. She has bewn vomiting all day. She has a history pyleonephritis and has been hospitalized with that. Onset: Other ( started 2 days ago. 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: , Other (See Below) Other OB/BYN History: Hx of cysts on bilateral ovaries Musculoskeletal History: Reports: Other (See Below) Other Musculoskeletal History: siatica Neurological History: Reports: Seizure Psychiatric History: Reports: Addiction, Anxiety, Depression, Other (See Below) Other Psychiatric History: opiates Endocrine/Metabolic History: Reports: None - Infectious Disease History Infectious Disease History: Reports: Chicken Pox - Past Surgical History Endocrine Surgical History: Reports: None Social & Family History - Family History Family Medical History: Noncontributory - Tobacco Use Smoking Status *Q: Former Smoker Used Tobacco, but Quit: Yes Month/Year Tobacco Last Used: 2012 Second Hand Smoke Exposure: No - Caffeine Use Caffeine Use: Reports: Coffee Other Caffeine Use: 1 energy drink/day. 2-3 cups coffee/day. - Alcohol Use Days Per Week of Alcohol Use: 0 - Recreational Drug Use Recreational Drug Use: Yes Drug Use in Last 12 Months: No Recreational Drug Use Frequency: Patient Refuses To Answer Recreational Drug Last Use: has been in [facility] since July 2015. - Sexual History Sexual History: Reports: Same Sex Partner - Living Situation & Occupation Living situation: Reports: with Significant Other Occupation: Unemployed (lives with Same Sex partner, Ms. Rm has 4 children ages 2, 10, 14 and 17 yrs. lives in [facility] ED ROS GENERAL - Review of Systems Review Of Systems: See Below Constitutional: Reports: Chills, Malaise, Weakness HEENT: Reports: No Symptoms Respiratory: Reports: No Symptoms Cardiovascular: Reports: No Symptoms Endocrine: Reports: No Symptoms GI/Abdominal: Reports: Abdominal Pain, Nausea, Vomiting, Other (pain in lower abdoman. ) : Reports: Flank Pain Musculoskeletal: Reports: No Symptoms Skin: Reports: No Symptoms ED EXAM, GI/ABD - Physical Exam Exam: See Below Text/Narrative:: Pt arrived with severe left flank pain and lowr abdomanal pain. She appears somewhat lethargic.Her temp is not up and her pulse is not up. Exam Limited By: No Limitations General Appearance: Alert, Anxious, Moderate Distress Eyes: Bilateral: Normal Appearance, EOMI Ears: Normal TMs Nose: Normal Inspection Throat/Mouth: Normal Inspection Head: Atraumatic Neck: Normal Inspection Respiratory/Chest: No Respiratory Distress Cardiovascular: Regular Rate, Rhythm GI/Abdominal Exam: Other (pain in lower abdoman. She is tender in the lower abdoman. She is very tender in the flank area. ) Back Exam: Normal Inspection Extremities: Normal Inspection Course - Vital Signs Last Recorded V/S: Last Vital Signs Temp 37.4 C 06/07/17 18:12 Pulse 84 06/07/17 18:12 Resp 20 06/07/17 18:12 BP 131/96 H 06/07/17 18:12 Pulse Ox 100 06/07/17 18:12 - Orders/Labs/Meds Orders: Active Orders 24 hr Category Date Time Status Chest 1V Frontal [CR] Stat Exams 06/07/17 19:22 Taken CULTURE BLOOD [BC] Urgent Lab 06/07/17 18:33 Received CULTURE BLOOD [BC] Urgent Lab 06/07/17 18:43 Received CULTURE URINE [RM] Stat Lab 06/07/17 19:14 Received Sodium Chloride 0.9% [Normal Saline] 1,000 ml Med 06/07/17 18:30 Active IV ASDIRECTED Blood Culture x2 Reflex Set [OM.PC] Urgent Oth 06/07/17 18:30 Ordered Medication Orders Sodium Chloride (Normal Saline) 1,000 mls @ 999 mls/hr IV ASDIRECTED BRYANT Last Admin: 06/07/17 18:53 Dose: 999 mls/hr Labs: Laboratory Tests 06/07/17 06/07/1718 Range/Units 18:31 18:31 18:54 WBC 6.1 (4.5-11.0) K/uL RBC 5.15 (3.30-5.50) M/uL Hgb 14.5 (12.0-15.0) g/dL Hct 41.5 (36.0-48.0) % MCV 81 (80-98) fL MCH 28 (27-31) pg MCHC 35 (32-36) % Plt Count 213 (150-400) K/uL Neut % (Auto) 69 H (36-66) % Lymph % (Auto) 19 L (24-44) % [place] % (Auto) 9 H (2-6) % Eos % (Auto) 3 (2-4) % Baso % (Auto) 0 (0-1) % Sodium 143 (140-148) mmol/L Potassium 4.4 (3.6-5.2) mmol/L Chloride 107 (100-108) mmol/L Carbon Dioxide 25 (21-32) mmol/L Anion Gap 11.1 (5.0-14.0) mmol/L BUN 12 (7-18) mg/dL Creatinine 0.7 (0.6-1.0) mg/dL Est Cr Clr Drug Dosing 92.10 mL/min Estimated GFR (MDRD) > 60 (>60) Glucose 92 (74-106) mg/dL Calcium 9.4 (8.5-10.1) mg/dL Total Bilirubin 0.5 (0.2-1.0) mg/dL AST 30 (15-37) U/L ALT 55 (12-78) U/L Alkaline Phosphatase 78 (46-116) U/L C-Reactive Protein 0.36 H (0.0-0.3) mg/dL Total Protein 7.6 (6.4-8.2) g/dL Albumin 3.6 (3.4-5.0) g/dL Globulin 4.0 H (2.3-3.5) g/dL Albumin/Globulin Ratio 0.9 L (1.2-2.2) Urine Color Yellow Urine Appearance Slightly cloudy Urine pH 5.0 (4.5-8.0) Ur Specific [place] 1.020 (1.008-1.030) Urine Protein Negative (NEGATIVE) mg/dL Urine Glucose (UA) Normal (NEGATIVE) mg/dL Urine Ketones Negative (NEGATIVE) mg/dL Urine Occult Blood Large (NEGATIVE) Urine Nitrite Negative (NEGATIVE) Urine Bilirubin Negative (NEGATIVE) Urine Urobilinogen Normal (NORMAL) mg/dL Ur Leukocyte Esterase Small (NEGATIVE) Urine RBC 20-30 H (0-5) Urine WBC 10-20 H (0-5) Ur Epithelial Cells Few Amorphous Sediment Not seen Urine Bacteria Moderate Urine Mucus Moderate Urine Opiates Screen (NEGATIVE) Ur Oxycodone Screen (NEGATIVE) Urine Methadone Screen (NEGATIVE) Ur Propoxyphene Screen (NEGATIVE) Ur Barbiturates Screen (NEGATIVE) Ur Tricyclics Screen (NEGATIVE) Ur Phencyclidine Scrn (NEGATIVE) Ur Amphetamine Screen (NEGATIVE) U Methamphetamines Scrn (NEGATIVE) Urine MDMA Screen (NEGATIVE) U Benzodiazepines Scrn (NEGATIVE) U Cocaine Metab Screen (NEGATIVE) U Marijuana (THC) Screen (NEGATIVE) 06/07/17 Range/Units 19:24 WBC (4.5-11.0) K/uL RBC (3.30-5.50) M/uL Hgb (12.0-15.0) g/dL Hct (36.0-48.0) % MCV (80-98) fL MCH (27-31) pg MCHC (32-36) % Plt Count (150-400) K/uL Neut % (Auto) (36-66) % Lymph % (Auto) (24-44) % [place] % (Auto) (2-6) % Eos % (Auto) (2-4) % Baso % (Auto) (0-1) % Sodium (140-148) mmol/L Potassium (3.6-5.2) mmol/L Chloride (100-108) mmol/L Carbon Dioxide (21-32) mmol/L Anion Gap (5.0-14.0) mmol/L BUN (7-18) mg/dL Creatinine (0.6-1.0) mg/dL Est Cr Clr Drug Dosing mL/min Estimated GFR (MDRD) (>60) Glucose (74-106) mg/dL Calcium (8.5-10.1) mg/dL Total Bilirubin (0.2-1.0) mg/dL AST (15-37) U/L ALT (12-78) U/L Alkaline Phosphatase (46-116) U/L C-Reactive Protein (0.0-0.3) mg/dL Total Protein (6.4-8.2) g/dL Albumin (3.4-5.0) g/dL Globulin (2.3-3.5) g/dL Albumin/Globulin Ratio (1.2-2.2) Urine Color Urine Appearance Urine pH (4.5-8.0) Ur Specific [place] (1.008-1.030) Urine Protein (NEGATIVE) mg/dL Urine Glucose (UA) (NEGATIVE) mg/dL Urine Ketones (NEGATIVE) mg/dL Urine Occult Blood (NEGATIVE) Urine Nitrite (NEGATIVE) Urine Bilirubin (NEGATIVE) Urine Urobilinogen (NORMAL) mg/dL Ur Leukocyte Esterase (NEGATIVE) Urine RBC (0-5) Urine WBC (0-5) Ur Epithelial Cells Amorphous Sediment Urine Bacteria Urine Mucus Urine Opiates Screen Negative (NEGATIVE) Ur Oxycodone Screen Negative (NEGATIVE) Urine Methadone Screen Positive H (NEGATIVE) Ur Propoxyphene Screen Negative (NEGATIVE) Ur Barbiturates Screen Negative (NEGATIVE) Ur Tricyclics Screen Negative (NEGATIVE) Ur Phencyclidine Scrn Negative (NEGATIVE) Ur Amphetamine Screen Negative (NEGATIVE) U Methamphetamines Scrn Negative (NEGATIVE) Urine MDMA Screen Negative (NEGATIVE) U Benzodiazepines Scrn Negative (NEGATIVE) U Cocaine Metab Screen Negative (NEGATIVE) U Marijuana (THC) Screen Negative (NEGATIVE) Meds: Medications Generic Name Dose Route Start Last Admin Trade Name Freq PRN Reason Stop Dose Admin Sodium Chloride 1,000 mls @ 999 mls/hr 06/07/17 18:30 06/07/17 18:53 Normal Saline IV 999 mls/hr ASDIRECTED BRYANT Administration Discontinued Medications Generic Name Dose Route Start Last Admin Trade Name Freq PRN Reason Stop Dose Admin Hydromorphone HCl 0.5 mg 06/07/17 19:03 06/07/17 19:13 Dilaudid IVPUSH 06/07/17 19:04 0.5 mg ONETIME ONE Administration Ondansetron HCl 4 mg 06/07/17 19:24 06/07/17 19:29 Zofran IVPUSH 06/07/17 19:25 4 mg ONETIME ONE Administration - Re-Assessments/Exams Free Text/Narrative Re-Assessment/Exam: 06/07/17 19:43 urine looks infected. and was culturd. She has been vomiting all day. She has severe flank pain. Departure - Departure Time of Disposition: 19:44 Disposition: Admitted As Inpatient 66 Condition: Fair Clinical Impression: Dehydration, Kidney infection - Discharge Information Referrals: Melani Vera MD [Primary Care Provider] - Forms: ED Department Discharge Care Plan Goals: admit to Dr Hurtado - My Orders Last 24 Hours: My Active Orders 06/07/17 18:30 Sodium Chloride 0.9% [Normal Saline] 1,000 ml IV ASDIRECTED Blood Culture x2 Reflex Set [OM.PC] Urgent 06/07/17 18:33 CULTURE BLOOD [BC] Urgent 06/07/17 18:43 CULTURE BLOOD [BC] Urgent 06/07/17 19:14 CULTURE URINE [RM] Stat 06/07/17 19:22 Chest 1V Frontal [CR] Stat - Assessment/Plan Last 24 Hours: My Active Orders 06/07/17 18:30 Sodium Chloride 0.9% [Normal Saline] 1,000 ml IV ASDIRECTED Blood Culture x2 Reflex Set [OM.PC] Urgent 06/07/17 18:33 CULTURE BLOOD [BC] Urgent 06/07/17 18:43 CULTURE BLOOD [BC] Urgent 06/07/17 19:14 CULTURE URINE [RM] Stat 06/07/17 19:22 Chest 1V Frontal [CR] Stat
[2017-06-07] MEDS ORDERED: Sodium Chloride 0.9% 1,000 ML IV SCH (18:30)
[2017-06-07] MEDS ORDERED: HYDROmorphone 0.5 MG/0.5 ML Syringe IVPUSH ONE (19:03)
[2017-06-07] MEDS ORDERED: Ondansetron 4 MG/2 ML SDV IVPUSH ONE (19:24)
[2017-06-07] MEDS ORDERED: cefTRIAXone 2 GM in Sodium Chloride 0.9% 50 ML IV ONE (19:46)
--- NOTE | 2017-06-07 20:03 | PCM.HP ---
H&P History of Present Illness - General Date of Service: 06/07/17 Admit Problem/Dx: Admission Diagnosis/Problem Admission Diagnosis/Problem Pyelonephritis Source of Information: Patient, Provider History Limitations: Reports: No Limitations - History of Present Illness Initial Comments - Free Text/Narative: Philomena presents to the emergency room today with 4 days of left-sided abdominal pain, myalgias and increased urinary frequency. Over the past 24 hours she's developed nausea with vomiting as well. Left-sided abdominal pain is described as sharp pain that radiates throughout the left side of her abdomen. The most intense part of the pain is in the left flank. Moving around makes the pain worse. She hasn't found anything that makes the pain better. She has had similar episodes of pain with previous kidney infections. She has had subjective fevers at home and measured a temperature of 99.9. She has had very little tea to drink in the past 2 days. She hasn't had anything to eat today. No complaints of diarrhea or shortness of breath. Most recent antibiotics were more than one month ago. Workup in the emergency room revealed a reassuring laboratory testing. Urine sample is suggestive of infection and examination is consistent with left-sided pyelonephritis. She will be admitted for further management. 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) Other OB/BYN History: Hx of cysts on bilateral ovaries Musculoskeletal History: Reports: Other (See Below) Other Musculoskeletal History: siatica Neurological History: Reports: Seizure Psychiatric History: Reports: Addiction, Anxiety, Depression, Other (See Below) Other Psychiatric History: opiates Endocrine/Metabolic History: Reports: None - Infectious Disease History Infectious Disease History: Reports: Chicken Pox - Past Surgical History Endocrine Surgical History: Reports: None Social & Family History - Family History Family Medical History: Noncontributory - Tobacco Use Smoking Status *Q: Former Smoker Used Tobacco, but Quit: Yes Month/Year Tobacco Last Used: 2012 Second Hand Smoke Exposure: No - Caffeine Use Caffeine Use: Reports: Coffee Other Caffeine Use: 1 energy drink/day. 2-3 cups coffee/day. - Alcohol Use Days Per Week of Alcohol Use: 0 - Recreational Drug Use Recreational Drug Use: Yes Drug Use in Last 12 Months: No Recreational Drug Use Frequency: Patient Refuses To Answer Recreational Drug Last Use: has been in [facility] since July 2015. - Sexual History Sexual History: Reports: Same Sex Partner - Living Situation & Occupation Living situation: Reports: with Significant Other Occupation: Unemployed (lives with Same Sex partner, Ms. Rm has 4 children ages 2, 10, 14 and 17 yrs. lives in [facility].) H&P Review of Systems - Review of Systems: Review Of Systems: See Below Free Text/Narrative: A complete 12 point review of systems was obtained. Pertinent positives and negatives are noted in the history of present illness. All other systems were reviewed and were negative except as noted. Exam - Exam Exam: See Below - Vital Signs Vital Signs: Last Vital Signs Temp 37.4 C 06/07/17 18:12 Pulse 84 06/07/17 18:12 Resp 20 06/07/17 18:12 BP 131/96 H 06/07/17 18:12 Pulse Ox 100 06/07/17 18:12 Weight: 78.6 kg - Exam Quality Assessment: No: Supplemental Oxygen General: Alert, Oriented, Cooperative, Mild Distress HEENT: Conjunctiva Clear. No: Mucosa Moist & [place] (dry), Scleral Icterus Neck: Supple, Trachea Midline. No: Lymphadenopathy Lungs: Clear to Auscultation, Normal Respiratory Effort Cardiovascular: Regular Rate, Regular Rhythm GI/Abdominal Exam: Normal Bowel Sounds, Soft, No Distention, Tender ( significant tenderness left upper quadrant/left flank) Back Exam: Normal Inspection, CVA Tenderness (L) Extremities: No Pedal Edema. No: Increased Warmth Peripheral Pulses: 2+: Dorsalis Pedis (L), Dorsalis Pedis (R) Skin: Warm, Dry Neuro Extensive - Mental Status: Alert, Oriented x3, Nl Response to Commands Neuro Extensive - Motor, Sensory, Reflexes: CN II-XII Intact. No: Dysarthria, Abnormal Motor, Tremor Psychiatric: Alert, Normal Affect - Patient Data Lab Results Last 24 hrs: Laboratory Results - last 24 hr 06/07/17 06/07/1706/07/18 Range/Units 18:31 18:31 18:54 WBC 6.1 (4.5-11.0) K/uL RBC 5.15 (3.30-5.50) M/uL Hgb 14.5 (12.0-15.0) g/dL Hct 41.5 (36.0-48.0) % MCV 81 (80-98) fL MCH 28 (27-31) pg MCHC 35 (32-36) % Plt Count 213 (150-400) K/uL Neut % (Auto) 69 H (36-66) % Lymph % (Auto) 19 L (24-44) % [place] % (Auto) 9 H (2-6) % Eos % (Auto) 3 (2-4) % Baso % (Auto) 0 (0-1) % Sodium 143 (140-148) mmol/L Potassium 4.4 (3.6-5.2) mmol/L Chloride 107 (100-108) mmol/L Carbon Dioxide 25 (21-32) mmol/L Anion Gap 11.1 (5.0-14.0) mmol/L BUN 12 (7-18) mg/dL Creatinine 0.7 (0.6-1.0) mg/dL Est Cr Clr Drug Dosing 92.10 mL/min Estimated GFR (MDRD) > 60 (>60) Glucose 92 (74-106) mg/dL Calcium 9.4 (8.5-10.1) mg/dL Total Bilirubin 0.5 (0.2-1.0) mg/dL AST 30 (15-37) U/L ALT 55 (12-78) U/L Alkaline Phosphatase 78 (46-116) U/L C-Reactive Protein 0.36 H (0.0-0.3) mg/dL Total Protein 7.6 (6.4-8.2) g/dL Albumin 3.6 (3.4-5.0) g/dL Globulin 4.0 H (2.3-3.5) g/dL Albumin/Globulin Ratio 0.9 L (1.2-2.2) Urine Color Yellow Urine Appearance Slightly cloudy Urine pH 5.0 (4.5-8.0) Ur Specific [place] 1.020 (1.008-1.030) Urine Protein Negative (NEGATIVE) mg/dL Urine Glucose (UA) Normal (NEGATIVE) mg/dL Urine Ketones Negative (NEGATIVE) mg/dL Urine Occult Blood Large (NEGATIVE) Urine Nitrite Negative (NEGATIVE) Urine Bilirubin Negative (NEGATIVE) Urine Urobilinogen Normal (NORMAL) mg/dL Ur Leukocyte Esterase Small (NEGATIVE) Urine RBC 20-30 H (0-5) Urine WBC 10-20 H (0-5) Ur Epithelial Cells Few Amorphous Sediment Not seen Urine Bacteria Moderate Urine Mucus Moderate Urine Opiates Screen (NEGATIVE) Ur Oxycodone Screen (NEGATIVE) Urine Methadone Screen (NEGATIVE) Ur Propoxyphene Screen (NEGATIVE) Ur Barbiturates Screen (NEGATIVE) Ur Tricyclics Screen (NEGATIVE) Ur Phencyclidine Scrn (NEGATIVE) Ur Amphetamine Screen (NEGATIVE) U Methamphetamines Scrn (NEGATIVE) Urine MDMA Screen (NEGATIVE) U Benzodiazepines Scrn (NEGATIVE) U Cocaine Metab Screen (NEGATIVE) U Marijuana (THC) Screen (NEGATIVE) 06/07/17 Range/Units 19:24 WBC (4.5-11.0) K/uL RBC (3.30-5.50) M/uL Hgb (12.0-15.0) g/dL Hct (36.0-48.0) % MCV (80-98) fL MCH (27-31) pg MCHC (32-36) % Plt Count (150-400) K/uL Neut % (Auto) (36-66) % Lymph % (Auto) (24-44) % [place] % (Auto) (2-6) % Eos % (Auto) (2-4) % Baso % (Auto) (0-1) % Sodium (140-148) mmol/L Potassium (3.6-5.2) mmol/L Chloride (100-108) mmol/L Carbon Dioxide (21-32) mmol/L Anion Gap (5.0-14.0) mmol/L BUN (7-18) mg/dL Creatinine (0.6-1.0) mg/dL Est Cr Clr Drug Dosing mL/min Estimated GFR (MDRD) (>60) Glucose (74-106) mg/dL Calcium (8.5-10.1) mg/dL Total Bilirubin (0.2-1.0) mg/dL AST (15-37) U/L ALT (12-78) U/L Alkaline Phosphatase (46-116) U/L C-Reactive Protein (0.0-0.3) mg/dL Total Protein (6.4-8.2) g/dL Albumin (3.4-5.0) g/dL Globulin (2.3-3.5) g/dL Albumin/Globulin Ratio (1.2-2.2) Urine Color Urine Appearance Urine pH (4.5-8.0) Ur Specific [place] (1.008-1.030) Urine Protein (NEGATIVE) mg/dL Urine Glucose (UA) (NEGATIVE) mg/dL Urine Ketones (NEGATIVE) mg/dL Urine Occult Blood (NEGATIVE) Urine Nitrite (NEGATIVE) Urine Bilirubin (NEGATIVE) Urine Urobilinogen (NORMAL) mg/dL Ur Leukocyte Esterase (NEGATIVE) Urine RBC (0-5) Urine WBC (0-5) Ur Epithelial Cells Amorphous Sediment Urine Bacteria Urine Mucus Urine Opiates Screen Negative (NEGATIVE) Ur Oxycodone Screen Negative (NEGATIVE) Urine Methadone Screen Positive H (NEGATIVE) Ur Propoxyphene Screen Negative (NEGATIVE) Ur Barbiturates Screen Negative (NEGATIVE) Ur Tricyclics Screen Negative (NEGATIVE) Ur Phencyclidine Scrn Negative (NEGATIVE) Ur Amphetamine Screen Negative (NEGATIVE) U Methamphetamines Scrn Negative (NEGATIVE) Urine MDMA Screen Negative (NEGATIVE) U Benzodiazepines Scrn Negative (NEGATIVE) U Cocaine Metab Screen Negative (NEGATIVE) U Marijuana (THC) Screen Negative (NEGATIVE) Result Diagrams: 1818 18:31 03 18:31 Imaging Impressions Last 24 hrs: Chest x-ray - images personally reviewed - lungs are clear with no mass, infiltrate or effusion. Heart size is normal *Q Meaningful Use (ADM) - VTE *Q VTE Criteria *Q: - VTE Risk Assess *Q Each Risk Factor Represents 1 Point: Obesity ( BMI > 25 kg/m2) Total Score 1 Point Risk Factors: 1 Each Risk Factor Represents 2 Points: None Total Score 2 Point Risk Factors: 0 Each Risk Factor Represents 3 Points: None Total Score 3 Point Risk Factors: 0 Each Risk Factor Represents 5 Points: None Total Score 5 Point Risk Factors: 0 Venous Thromboembolism Risk Factor Score *Q: 1 - Stroke *Q Stroke Criteria *Q: - AMI *Q AMI Criteria *Q: - Problem List (1) Pyelonephritis SNOMED Code(s): 95396866 ICD Code: N12 - TUBULO-INTERSTITIAL NEPHRITIS, NOT SPCF ACUTE OR CHRONIC Status: Acute Current Visit: Yes (2) Methadone maintenance therapy patient SNOMED Code(s): 476212089 ICD Code: F11.20 - OPIOID DEPENDENCE, UNCOMPLICATED Status: Chronic Current Visit: No Problem List Initiated/Reviewed/Updated: Yes Orders Last 24hrs: Active Orders 24 hr Category Date Time Status Patient Status Manage Transfer [TRANSFER] Routine ADT 06/07/17 19:48 Ordered Chest 1V Frontal [CR] Stat Exams 06/07/17 19:22 Taken CULTURE BLOOD [BC] Urgent Lab 06/07/17 18:33 Received CULTURE BLOOD [BC] Urgent Lab 06/07/17 18:43 Received CULTURE URINE [RM] Stat Lab 06/07/17 19:14 Received Sodium Chloride 0.9% [Normal Saline] 1,000 ml Med 06/07/17 18:30 Active IV ASDIRECTED Sodium Chloride 0.9% [Normal Saline] 1,000 ml Med 06/07/17 20:00 Active IV ASDIRECTED cefTRIAXone [Rocephin] 2 gm Med 06/07/17 19:46 Active Sodium Chloride 0.9% [Normal Saline] 50 ml IV ONETIME Blood Culture x2 Reflex Set [OM.PC] Urgent Oth 06/07/17 18:30 Ordered Resuscitation Status Routine Resus Stat 06/07/17 19:49 Ordered Medication Orders Sodium Chloride (Normal Saline) 1,000 mls @ 999 mls/hr IV ASDIRECTED [facility] Last Admin: 06/07/17 18:53 Dose: 999 mls/hr Ceftriaxone Sodium 2 gm/ (Sodium Chloride) 50 mls @ 100 mls/hr IV ONETIME ONE Stop: 06/07/17 20:15 Sodium Chloride (Normal Saline) 1,000 mls @ 125 mls/hr IV ASDIRECTED [facility] Assessment/Plan Comment:: ASSESSMENT AND PLAN - Left pyelonephritis - no evidence for sepsis at this time. History of similar infections in the past. Most recent urine cultures have grown out Escherichia coli. With her nausea and vomiting she is not safe for outpatient management. -Ceftriaxone -IV fluids -Pain control -Follow-up urine culture Opioid dependence with chronic methadone maintenance - Patient reports that she is currently weaning off of the medication. She is taking 54 mg once daily at this time. -Daily methadone Maintenance issues - - DVT prophylaxis - mechanical - GI prophylaxis - single dose PPI today - Nutrition - full liquids, advance as tolerated - Peters catheter - not indicated CODE STATUS - full code Admission justification - This patient will be admitted for inpatient services and is medically appropriate meeting medical necessity for inpatient admission as outlined in my documentation. I reasonably expect the patient will require inpatient services that span a period time over 2 midnights. I reasonably expect this patient to be discharged or transferred within 96 hours after admission to the [facility]. Disposition - anticipate discharge home after the hospital stay Primary care physician - Sanam Hurtado M.D.
[2017-06-07] MEDS ORDERED: Polyethylene Glycol 3350 Powder 17 GM Packet PO PRN (20:43)
[2017-06-07] MEDS ORDERED: Ondansetron 4 MG/2 ML SDV IV PRN (20:43)
[2017-06-07] MEDS ORDERED: Promethazine 12.5 MG in Sodium Chloride 0.9% 50 ML IV PRN (20:43)
[2017-06-07] MEDS: Sodium Chloride 0.9% 1,000 ML IV SCH (20:46)
[2017-06-07] MEDS: Acetaminophen 325 MG Tab PO PRN (20:55)
[2017-06-07] MEDS ORDERED: Pantoprazole 40 MG Vial IV ONE (21:00)
[2017-06-07] MEDS: Ondansetron 4 MG Tab.DIS PO PRN (21:08)
[2017-06-07] MEDS: oxyCODONE 5 MG Tab PO PRN (21:08)
[2017-06-07] MEDS: Ibuprofen 600 MG Tab PO PRN (21:34)
[2017-06-07] MEDS ORDERED: Sodium Chloride 0.9% 500 ML IV ONE (22:20)
[2017-06-07] MEDS: LORazepam 2 MG/ML SDV IVPUSH PRN (22:53)
[2017-06-08] MEDS: Acetaminophen 325 MG Tab PO PRN ×2 (02:37→08:32)
[2017-06-08] MEDS: oxyCODONE 5 MG Tab PO PRN ×2 (05:03→10:58)
[2017-06-08] MEDS: Ibuprofen 600 MG Tab PO PRN ×3 (05:03→23:59)
[2017-06-08] MEDS: Sodium Chloride 0.9% 1,000 ML IV SCH ×2 (05:05→12:34)
[2017-06-08] MEDS: Ondansetron 4 MG Tab.DIS PO PRN ×2 (07:58→17:19)
[2017-06-08] MEDS ORDERED: Methadone 10 MG Tab PO SCH (09:00)
--- NOTE | 2017-06-08 09:02 | CR ---
Chest 1V Frontal FINDINGS: The heart and vascular structures are normal in appearance. No infiltrates or effusions are demonstrated. The skeletal structures are unremarkable. IMPRESSION: Negative exam.
--- NOTE | 2017-06-08 12:42 | PCM.PN ---
- General Info Date of Service: 06/08/17 Subjective Update: Ms. Randall has been stable since admission, continues to experience significant left flank pain as well as left lower quadrant abdominal pain. She's had a history of recurrent urinary tract infections and now is presumed to have pyelonephritis based on current symptoms. - Review of Systems General: Reports: Fever, Weakness, Chills Pulmonary: Reports: No Symptoms Cardiovascular: Reports: No Symptoms Gastrointestinal: Reports: Abdominal Pain, Decreased Appetite, Nausea. Denies: Difficulty Swallowing, Vomiting Musculoskeletal: Reports: Other (Left flank pain) - Patient Data Vitals - Most Recent: Last Vital Signs Temp 98.6 F 06/08/17 11:00 Pulse 84 06/08/17 11:00 Resp 15 06/08/17 11:00 BP 119/64 06/08/17 11:00 Pulse Ox 100 06/08/17 11:00 Weight - Most Recent: 173 lb I&O - Last 24 Hours: Intake & Output 06/07/17 06/08/17 06/08/17 22:59 06:59 14:59 Intake Total 1360 240 Output Total 200 100 Balance -200 1360 140 Lab Results Last 24 Hours: Laboratory Results - last 24 hr 06/08/17 06/08/17 Range/Units 05:44 05:44 WBC 3.4 L (4.5-11.0) K/uL RBC 4.43 (3.30-5.50) M/uL Hgb 12.4 D (12.0-15.0) g/dL Hct 36.3 (36.0-48.0) % MCV 82 (80-98) fL MCH 28 (27-31) pg MCHC 34 (32-36) % Plt Count 167 (150-400) K/uL Sodium 142 (140-148) mmol/L Potassium 3.7 (3.6-5.2) mmol/L Chloride 111 H (100-108) mmol/L Carbon Dioxide 22 (21-32) mmol/L Anion Gap 12.7 (5.0-14.0) mmol/L BUN 10 (7-18) mg/dL Creatinine 0.7 (0.6-1.0) mg/dL Est Cr Clr Drug Dosing 92.10 mL/min Estimated GFR (MDRD) > 60 (>60) Glucose 79 (74-106) mg/dL Calcium 8.1 L (8.5-10.1) mg/dL Med Orders - Current: Current Medications Acetaminophen (Tylenol) 650 mg PO Q4H PRN PRN Reason: Pain (Mild 1-3)/fever Last Admin: 06/08/17 08:32 Dose: 650 mg Ceftriaxone Sodium 2 gm/ (Sodium Chloride) 50 mls @ 100 mls/hr IV Q24H [facility] Promethazine HCl 12.5 mg/ (Sodium Chloride) 50.5 mls @ 200 mls/hr IV Q6H PRN PRN Reason: Nausea/Vomiting Last Admin: 06/07/17 22:54 Dose: 200 mls/hr Sodium Chloride (Normal Saline) 1,000 mls @ 75 mls/hr IV ASDIRECTED [facility] Ibuprofen (Motrin) 600 mg PO Q6H PRN PRN Reason: Pain/Fever Last Admin: 06/08/17 10:59 Dose: 600 mg Lorazepam (Ativan) 0.5 - 1 mg IVPUSH Q4H PRN PRN Reason: Nausea/Vomiting Last Admin: 06/07/17 22:53 Dose: 0.5 mg Methadone HCl 50 mg/ Methadone (HCl 5 mg) 55 mg PO DAILY [facility] Last Admin: 06/08/17 08:31 Dose: 55 mg Ondansetron HCl (Zofran Odt) 4 mg PO Q6H PRN PRN Reason: Nausea able to take PO Last Admin: 06/08/17 07:58 Dose: 4 mg Ondansetron HCl (Zofran) 4 mg IV Q6H PRN PRN Reason: Nausea/Vomiting Oxycodone HCl (Oxycodone) 5 mg PO Q4H PRN PRN Reason: Pain (moderate 4-6) Last Admin: 06/08/17 10:58 Dose: 5 mg Polyethylene Glycol (Miralax) 17 gm PO DAILY PRN PRN Reason: Constipation Senna/Docusate Sodium (Senna Plus) 1 tab PO BID PRN PRN Reason: Constipation Last Admin: 06/08/17 07:58 Dose: 1 tab Discontinued Medications Hydromorphone HCl (Dilaudid) 0.5 mg IVPUSH ONETIME ONE Stop: 06/07/17 19:04 Last Admin: 06/07/17 19:13 Dose: 0.5 mg Sodium Chloride (Normal Saline) 1,000 mls @ 999 mls/hr IV ASDIRECTED [facility] Last Admin: 06/07/17 18:53 Dose: 999 mls/hr Ceftriaxone Sodium 2 gm/ (Sodium Chloride) 50 mls @ 100 mls/hr IV ONETIME ONE Stop: 06/07/17 20:15 Last Admin: 06/07/17 20:20 Dose: 100 mls/hr Sodium Chloride (Normal Saline) 1,000 mls @ 125 mls/hr IV ASDIRECTED [facility] Last Admin: 06/08/17 12:34 Dose: 125 mls/hr Sodium Chloride (Normal Saline) 500 mls @ 500 mls/hr IV .BOLUS ONE Stop: 06/07/17 23:19 Last Admin: 06/07/17 22:34 Dose: 500 mls/hr Ondansetron HCl (Zofran) 4 mg IVPUSH ONETIME ONE Stop: 06/07/17 19:25 Last Admin: 06/07/17 19:29 Dose: 4 mg Pantoprazole Sodium (Protonix Iv) 40 mg IV ONETIME ONE Stop: 06/07/17 21:01 Last Admin: 06/07/17 21:22 Dose: 40 mg - Exam Quality Assessment: DVT Prophylaxis General: Alert, Oriented, Cooperative, Moderate Distress Lungs: Clear to Auscultation, Normal Respiratory Effort Cardiovascular: Regular Rate, Regular Rhythm, No Murmurs GI/Abdominal Exam: Soft, No Organomegaly, Tender. No: Distended, Guarding, Rigid, Rebound Extremities: Non-Tender, No Pedal Edema Skin: Warm, Dry, Intact - Problem List Review Problem List Initiated/Reviewed/Updated: Yes - My Orders Last 24 Hours: My Active Orders 06/08/17 12:45 Sodium Chloride 0.9% @ 75 MLS/HR(1000ml) Sodium Chloride 0.9% [Normal Saline] 1 ,000 ml IV ASDIRECTED 06/08/17 Lunch Regular Diet [DIET] - Plan Plan:: ASSESSMENT AND PLAN - Left pyelonephritis - no evidence for sepsis at this time. History of similar infections in the past. Recurrent fevers, poor oral intake, intermittent nausea -Ceftriaxone -IV fluids -Pain control -Follow-up urine culture -Consider outpatient referral to urology to evaluate for recurrent urinary tract infections Opioid dependence with chronic methadone maintenance - Patient reports that she is currently weaning off of the medication. She is taking 54 mg once daily at this time. -Daily methadone Maintenance issues - - DVT prophylaxis - mechanical - GI prophylaxis - single dose PPI today - Nutrition - full liquids, advance as tolerated - Peters catheter - not indicated CODE STATUS - full code Admission justification - This patient will be admitted for inpatient services and is medically appropriate meeting medical necessity for inpatient admission as outlined in my documentation. I reasonably expect the patient will require inpatient services that span a period time over 2 midnights. I reasonably expect this patient to be discharged or transferred within 96 hours [facility] Disposition - anticipate discharge home after the hospital stay Primary care physician - Sanam DAMICO
[2017-06-08] MEDS ORDERED: Sodium Chloride 0.9% 1,000 ML IV SCH (12:45)
[2017-06-08] MEDS: LORazepam 2 MG/ML SDV IVPUSH PRN (20:03)
[2017-06-08] MEDS: cefTRIAXone 2 GM in Sodium Chloride 0.9% 50 ML IV SCH (20:05)
[2017-06-09] MEDS: Acetaminophen 325 MG Tab PO PRN (02:45)
[2017-06-09] MEDS: Ibuprofen 600 MG Tab PO PRN (08:48)
--- NOTE | 2017-06-09 12:34 | PCM.PN ---
- General Info Date of Service: 06/09/17 Subjective Update: Ms. Daley has felt moderately improved since admission with decreased flank and left lower quadrant abdominal pain. She did experience recurrent temperature elevation during the night but not as high as it had been previously. Appetite is modestly improved with better intake of liquids. - Review of Systems General: Reports: Fever, Weakness, Chills Pulmonary: Reports: No Symptoms Cardiovascular: Reports: No Symptoms Gastrointestinal: Reports: Abdominal Pain, Decreased Appetite. Denies: Diarrhea , Difficulty Swallowing, Nausea, Vomiting Genitourinary: Reports: Flank Pain. Denies: Dysuria, Frequency, Burning, Urgency, Incontinence - Patient Data Vitals - Most Recent: Last Vital Signs Temp 98.1 F 06/09/17 12:01 Pulse 71 06/09/17 12:01 Resp 16 06/09/17 12:01 BP 131/63 06/09/17 12:01 Pulse Ox 98 06/09/17 12:01 Weight - Most Recent: 173 lb I&O - Last 24 Hours: Intake & Output 06/08/17 06/09/17 06/09/17 22:59 06:59 14:59 Intake Total 1536 620 Output Total 475 550 600 Balance 1061 -550 20 Med Orders - Current: Current Medications Acetaminophen (Tylenol) 650 mg PO Q4H PRN PRN Reason: Pain (Mild 1-3)/fever Last Admin: 06/09/17 02:45 Dose: 650 mg Ceftriaxone Sodium 2 gm/ (Sodium Chloride) 50 mls @ 100 mls/hr IV Q24H [facility] Last Admin: 06/08/17 20:05 Dose: 100 mls/hr Promethazine HCl 12.5 mg/ (Sodium Chloride) 50.5 mls @ 200 mls/hr IV Q6H PRN PRN Reason: Nausea/Vomiting Last Admin: 06/07/17 22:54 Dose: 200 mls/hr Ibuprofen (Motrin) 600 mg PO Q6H PRN PRN Reason: Pain/Fever Last Admin: 06/09/17 08:48 Dose: 600 mg Lorazepam (Ativan) 0.5 - 1 mg IVPUSH Q4H PRN PRN Reason: Nausea/Vomiting Last Admin: 06/08/17 20:03 Dose: 0.5 mg Methadone HCl 50 mg/ Methadone (HCl 5 mg) 55 mg PO DAILY [facility] Last Admin: 06/09/17 08:48 Dose: 55 mg Ondansetron HCl (Zofran Odt) 4 mg PO Q6H PRN PRN Reason: Nausea able to take PO Last Admin: 06/08/17 17:19 Dose: 4 mg Ondansetron HCl (Zofran) 4 mg IV Q6H PRN PRN Reason: Nausea/Vomiting Oxycodone HCl (Oxycodone) 5 mg PO Q4H PRN PRN Reason: Pain (moderate 4-6) Last Admin: 06/08/17 10:58 Dose: 5 mg Polyethylene Glycol (Miralax) 17 gm PO DAILY PRN PRN Reason: Constipation Senna/Docusate Sodium (Senna Plus) 1 tab PO BID PRN PRN Reason: Constipation Last Admin: 06/08/17 07:58 Dose: 1 tab Discontinued Medications Hydromorphone HCl (Dilaudid) 0.5 mg IVPUSH ONETIME ONE Stop: 06/07/17 19:04 Last Admin: 06/07/17 19:13 Dose: 0.5 mg Sodium Chloride (Normal Saline) 1,000 mls @ [facility] Last Admin: 06/07/17 18:53 Dose: 999 mls/hr Ceftriaxone Sodium 2 gm/ (Sodium Chloride) 50 mls @ 100 mls/hr IV ONETIME ONE Stop: 06/07/17 20:15 Last Admin: 06/07/17 20:20 Dose: 100 mls/hr Sodium Chloride (Normal Saline) 1,000 mls @ [facility] Last Admin: 06/08/17 12:34 Dose: 125 mls/hr Sodium Chloride (Normal Saline) 500 mls @ 500 mls/hr IV .BOLUS ONE Stop: 06/07/17 23:19 Last Admin: 06/07/17 22:34 Dose: 500 mls/hr Sodium Chloride (Normal Saline) 1,000 mls @ [facility] Last Admin: 06/09/17 02:37 Dose: 75 mls/hr Ondansetron HCl (Zofran) 4 mg IVPUSH ONETIME ONE Stop: 06/07/17 19:25 Last Admin: 06/07/17 19:29 Dose: 4 mg Pantoprazole Sodium (Protonix Iv) 40 mg IV ONETIME ONE Stop: 06/07/17 21:01 Last Admin: 06/07/17 21:22 Dose: 40 mg - Exam General: Alert, Oriented, Cooperative, Mild Distress Lungs: Clear to Auscultation, Normal Respiratory Effort Cardiovascular: Regular Rate, Regular Rhythm, No Murmurs GI/Abdominal Exam: Soft, No Organomegaly, No Distention, Tender. No: Distended , Guarding, Rigid, Rebound Extremities: Non-Tender, No Pedal Edema Skin: Warm, Dry, Intact - Problem List Review Problem List Initiated/Reviewed/Updated: Yes - My Orders Last 24 Hours: My Active Orders 06/08/17 Lunch Regular Diet [DIET] 06/09/17 12:31 Convert IV to Saline Lock [OM.PC] Routine - Plan Plan:: ASSESSMENT AND PLAN - Left pyelonephritis - no evidence for sepsis at this time. History of similar infections in the past. Recurrent fevers, pain improved, nausea resolved, modest improvement in oral intake -Ceftriaxone -Saline lock IV -Pain control -Follow-up urine culture -Consider outpatient referral to urology to evaluate for recurrent urinary tract infections Opioid dependence with chronic methadone maintenance - Patient reports that she is currently weaning off of the medication. She is taking 54 mg once daily at this time. -Daily methadone Maintenance issues - - DVT prophylaxis - mechanical - GI prophylaxis - single dose PPI today - Nutrition - full liquids, advance as tolerated - Peters catheter - not indicated CODE STATUS - full code Admission justification - This patient will be admitted for inpatient services and is medically appropriate meeting medical necessity for inpatient admission as outlined in my documentation. I reasonably expect the patient will require inpatient services that span a period time over 2 midnights. I reasonably expect this patient to be discharged or transferred within 96 hours after admission to the [facility]. Disposition - anticipate discharge home after the hospital stay Primary care physician - Sanam DAMICO
[2017-06-09] MEDS: Ondansetron 4 MG Tab.DIS PO PRN (13:01)
[2017-06-09] MEDS: oxyCODONE 5 MG Tab PO PRN (15:18)
[2017-06-09] MEDS: LORazepam 2 MG/ML SDV IVPUSH PRN (19:10)
[2017-06-09] MEDS: cefTRIAXone 2 GM in Sodium Chloride 0.9% 50 ML IV SCH (20:31)
[2017-06-10] MEDS: oxyCODONE 5 MG Tab PO PRN ×2 (02:32→11:24)
[2017-06-10] MEDS: LORazepam 2 MG/ML SDV IVPUSH PRN (03:05)
[2017-06-10] MEDS: Ibuprofen 600 MG Tab PO PRN (07:56)
--- NOTE | 2017-06-10 09:43 | PCM.DCSUM1 ---
Discharge Summary - Hospital Course Brief History: Ms. Randall is a 31-year-old woman who was admitted through the emergency department with weakness, dehydration, left flank and abdominal pain, secondary to pyelonephritis. - Discharge Data Discharge Date: 06/10/17 Discharge Disposition: Home, Self-Care 01 Condition: Good - Discharge Diagnosis/Problem(s) (1) Dehydration SNOMED Code(s): 20146566 ICD Code: E86.0 - DEHYDRATION Status: Acute Current Visit: Yes (2) Pyelonephritis SNOMED Code(s): 54037970 ICD Code: N12 - TUBULO-INTERSTITIAL NEPHRITIS, NOT SPCF ACUTE OR CHRONIC Status: Acute Current Visit: Yes (3) Methadone maintenance therapy patient SNOMED Code(s): 072242938 ICD Code: F11.20 - OPIOID DEPENDENCE, UNCOMPLICATED Status: Chronic Current Visit: No - Patient Summary/Data Hospital Course: Ms. Randall is a 31-year-old woman who developed symptoms consistent with recurrent urinary tract infection and also associated with fever and significant left flank and abdominal pain. She was seen and evaluated in the emergency department, white blood cell count was elevated and findings were noted consistent with urinary tract infection on urinalysis. She was felt to have probable pyelonephritis, blood and urine cultures were obtained at the time of admission. She was given IV fluids for hydration and management of dehydration as well as anti-medic therapy. She she is on a methadone maintenance program in her usual dose of methadone was continued through her hospital stay. IV antibiotics were initiated with ceftriaxone 1 g IV every 24 hours. She gradually improved over the next few days of hospitalization and by the time of discharge and been afebrile for over 24 hours. Flank and abdominal pain had essentially resolved and she was tolerating a regular diet without significant difficulty. What cultures remain negative and urine culture grew out only mixed philippe. She will be discharged home on additional 5 days of oral antibiotic therapy with Omnicef 300 mg twice daily. Follow-up appointment will be scheduled with her primary care provider within one week. Consult will be scheduled with urology for further evaluation of recurrent urinary tract infections. Activity will be as tolerated and she will resume her usual diet. - Patient Instructions Diet: Usual Diet as Tolerated Activity: As Tolerated Other/Special Instructions: Please schedule follow-up appointment with primary care provider within one week. Please schedule urology consult evaluate recurrent urinary tract infections. - Discharge Plan Prescriptions/Med Rec: Cefdinir [Omnicef] 300 mg PO BID #5 cap Ondansetron [Zofran ODT] 4 mg PO Q4H #12 tab.dis Home Medications: Home Meds Methadone HCl [Methadone] 54 mg PO DAILY 01/28/17 [History] Cefdinir [Omnicef] 300 mg PO BID #5 cap 06/10/17 [Rx] Ondansetron [Zofran ODT] 4 mg PO Q4H #12 tab.dis 06/10/17 [Rx] Referrals: Agustin Meyers MD [Ordering Only Provider] - 07/02/17 1:30 pm John Marc RN, CHILD CARE DEVELOPMENT SPECIALIST [Ordering Only Provider] - 06/17/17 2:00 pm - Patient Data Vitals - Most Recent: Last Vital Signs Temp 98.5 F 06/10/17 07:44 Pulse 74 06/10/17 07:44 Resp 18 06/10/17 07:44 BP 121/69 06/10/17 07:44 Pulse Ox 98 06/10/17 07:44 Weight - Most Recent: 173 lb I&O - Last 24 hours: Intake & Output 06/09/17 06/10/17 06/10/17 22:59 06:59 14:59 Intake Total 550 600 Output Total 600 475 400 Balance -50 -475 200 Med Orders - Current: Current Medications Acetaminophen (Tylenol) 650 mg PO Q4H PRN PRN Reason: Pain (Mild 1-3)/fever Last Admin: 06/09/17 02:45 Dose: 650 mg Ceftriaxone Sodium 2 gm/ (Sodium Chloride) 50 mls @ 100 mls/hr IV Q24H [facility] Last Admin: 06/09/17 20:31 Dose: 100 mls/hr Promethazine HCl 12.5 mg/ (Sodium Chloride) 50.5 mls @ 200 mls/hr IV Q6H PRN PRN Reason: Nausea/Vomiting Last Admin: 06/07/17 22:54 Dose: 200 mls/hr Ibuprofen (Motrin) 600 mg PO Q6H PRN PRN Reason: Pain/Fever Last Admin: 06/10/17 07:56 Dose: 600 mg Lorazepam (Ativan) 0.5 - 1 mg IVPUSH Q4H PRN PRN Reason: Nausea/Vomiting Last Admin: 06/10/17 03:05 Dose: 0.5 mg Methadone HCl 50 mg/ Methadone (HCl 5 mg) 55 mg PO DAILY [facility] Last Admin: 06/10/17 08:01 Dose: 55 mg Ondansetron HCl (Zofran Odt) 4 mg PO Q6H PRN PRN Reason: Nausea able to take PO Last Admin: 06/09/17 13:01 Dose: 4 mg Ondansetron HCl (Zofran) 4 mg IV Q6H PRN PRN Reason: Nausea/Vomiting Oxycodone HCl (Oxycodone) 5 mg PO Q4H PRN PRN Reason: Pain (moderate 4-6) Last Admin: 06/10/17 02:32 Dose: 5 mg Polyethylene Glycol (Miralax) 17 gm PO DAILY PRN PRN Reason: Constipation Senna/Docusate Sodium (Senna Plus) 1 tab PO BID PRN PRN Reason: Constipation Last Admin: 06/08/17 07:58 Dose: 1 tab Discontinued Medications Hydromorphone HCl (Dilaudid) 0.5 mg IVPUSH ONETIME ONE Stop: 06/07/17 19:04 Last Admin: 06/07/17 19:13 Dose: 0.5 mg Sodium Chloride (Normal Saline) 1,000 mls @ [facility] Last Admin: 06/07/17 18:53 Dose: 999 mls/hr Ceftriaxone Sodium 2 gm/ (Sodium Chloride) 50 mls @ 100 mls/hr IV ONETIME ONE Stop: 06/07/17 20:15 Last Admin: 06/07/17 20:20 Dose: 100 mls/hr Sodium Chloride (Normal Saline) 1,000 mls @ 125 [facility] Last Admin: 06/08/17 12:34 Dose: 125 mls/hr Sodium Chloride (Normal Saline) 500 mls @ 500 mls/hr IV .BOLUS ONE Stop: 06/07/17 23:19 Last Admin: 06/07/17 22:34 Dose: 500 mls/hr Sodium Chloride (Normal Saline) 1,000 mls @ 75 [facility] Last Admin: 06/09/17 02:37 Dose: 75 mls/hr Ondansetron HCl (Zofran) 4 mg IVPUSH ONETIME ONE Stop: 06/07/17 19:25 Last Admin: 06/07/17 19:29 Dose: 4 mg Pantoprazole Sodium (Protonix Iv) 40 mg IV ONETIME ONE Stop: 06/07/17 21:01 Last Admin: 06/07/17 21:22 Dose: 40 mg *Q Meaningful Use (DIS) - VTE *Q VTE Criteria *Q: - Stroke *Q Stroke Criteria *Q: - AMI *Q AMI Criteria *Q:
== END 2017-06-10 12:00 | disposition home or self-care (01) | DRG 690 ==
LOC: JP.ED 16:39 → JP.MS 19:48 → UNDOADMIN 19:48 → UNDODISIN 06-10 12:00
PROVIDERS: ADMIT Internal Medicine; ATTEND Hospitalist
DX: N12 Tubulo-interstitial nephritis, not specified as acute or chronic (principal); F11.20 Opioid dependence, uncomplicated; E86.0 Dehydration; Z87.891 Personal history of nicotine dependence; Z87.440 Personal history of urinary (tract) infections; Z88.8 Allergy status to other drugs, medicaments and biological substances
CPT/HCPCS: 36415; 71045; 71045-26; 80048; 80053; 80305; 81001; 85025; 85027; 86140; 87040; 87086; 96361; 96374; 96375; 99285-25; A9270-GY; C9113; J0696; J1170; J2060; J2405; J2550; J7040; J7050

== ENCOUNTER 2017-07-22 17:27 | Emergency (ER) | payer MEDICAID ==
[2017-07-22] MEDS ORDERED: fentaNYL 100 MCG/2 ML SDV IVPUSH ONE ×2 (18:37→22:10)
[2017-07-22] MEDS ORDERED: Sodium Chloride 0.9% 10 ML Syringe FLUSH PRN (18:37)
[2017-07-22] MEDS ORDERED: Ondansetron 4 MG/2 ML SDV IVPUSH ONE (18:37)
--- NOTE | 2017-07-22 18:41 | EDM.PDOC ---
ED HPI GENERAL MEDICAL PROBLEM - General Chief Complaint: Abdominal Pain Stated Complaint: BLOOD IN URINE / LOW BACK PAIN Time Seen by Provider: 07/22/17 18:33 Source of Information: Reports: Patient, RN Notes Reviewed History Limitations: Reports: No Limitations - History of Present Illness INITIAL COMMENTS - FREE TEXT/NARRATIVE: 32-year-old female presents emergency department day complaint of low back and right sided flank pain she does have a history of pyelonephritis a couple of times she states this feels very similar pain is been ongoing for about 4 days has progressively gotten worse. She states she started having fevers last night and noted blood in her urine. 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: , Other (See Below) Other OB/BYN History: Hx of cysts on bilateral ovaries Musculoskeletal History: Reports: Other (See Below) Other Musculoskeletal History: siatica Neurological History: Reports: Seizure Psychiatric History: Reports: Addiction, Anxiety, Depression, Other (See Below) Other Psychiatric History: opiates - Infectious Disease History Infectious Disease History: Reports: Chicken Pox - Past Surgical History Head Surgeries/Procedures: Reports: None GI Surgical History: Reports: None Female Surgical History: Reports: None Endocrine Surgical History: Reports: None Musculoskeletal Surgical History: Reports: None Dermatological Surgical History: Reports: None Social & Family History - Family History Family Medical History: Noncontributory - Tobacco Use Smoking Status *Q: Never Smoker Years of Tobacco use: 5 Packs/Tins Daily: 0.5 Used Tobacco, but Quit: Yes Month/Year Tobacco Last Used: AUGUST Second Hand Smoke Exposure: No - Caffeine Use Caffeine Use: Reports: None Other Caffeine Use: 1 energy drink/day. 2-3 cups coffee/day. - Alcohol Use Days Per Week of Alcohol Use: 0 - Recreational Drug Use Recreational Drug Use: No Drug Use in Last 12 Months: No Recreational Drug Use Frequency: Patient Refuses To Answer Recreational Drug Last Use: has been in [facility] since July 2015. - Sexual History Sexual History: Reports: Same Sex Partner - Living Situation & Occupation Living situation: Reports: with Significant Other Occupation: Unemployed (lives with Same Sex partner, Ms. Rm has 4 children ages 2, 10, 14 and 17 yrs. lives in [facility] ED ROS GENERAL - Review of Systems Review Of Systems: See Below Constitutional: Reports: Fever, Chills HEENT: Reports: No Symptoms Respiratory: Reports: No Symptoms Cardiovascular: Reports: No Symptoms GI/Abdominal: Reports: Flatus, Nausea. Denies: Vomiting : Reports: Flank Pain, Hematuria Musculoskeletal: Reports: No Symptoms Skin: Reports: No Symptoms Neurological: Reports: No Symptoms ED EXAM, RENAL/ - Physical Exam Exam: See Below Text/Narrative:: General: Female, moderate discomfort secondary to pain, alert and oriented x3 HEENT: head is atraumatic normocephalic, eyes pupils equal round reactive to light, sclera clear no conjunctivitis appreciated. Ears tympanic membranes clear and gee landmarks and light reflex are present bilaterally canals are clear. Nose no septal deviation, nares are clear, no blood present. Mouth mucosa is moist and pink no erythema or exudate noted in soft palate, tongue is midline uvula is midline, dentition is intact. Neck: Supple no thyromegaly no tracheal deviation. Nodes: Cervical nodes subclavicular nodes nontender no palpable lymphadenopathy noted. Lungs: clear to auscultation bilaterally with symmetrical respirations, no adventitious noise appreciated. CV: Regular rate and rhythm S1 and S2 appreciated no murmurs rubs or gallops noted. Abdomen: Soft, nontender, no palpable masses or organomegaly appreciated, no distention no guarding bowel sounds are present, she is tender to palpation along the right flank right CVA area also tender suprapubic area. Neuro: Cranial nerves II through XII grossly intact Skin: Warm and dry, intact Extremities: No lower extremity edema appreciated, pedal pulse is +2. Course - Vital Signs Last Recorded V/S: Last Vital Signs Temp 97.6 F 07/22/17 18:17 Pulse 85 05/02/18 22:30 Resp 16 07/22/17 22:30 BP 120/58 L 07/22/17 22:30 Pulse Ox 96 07/22/17 22:30 - Orders/Labs/Meds Orders: Active Orders 24 hr Category Date Time Status Peripheral IV Care [RC] . DIRECTED Care 07/22/17 18:38 Active HCG QUALITATIVE,URINE [URCHEM] Routine Lab 07/22/17 19:15 Ordered UA W/MICROSCOPIC [URIN] Urgent Lab 07/22/17 19:15 Ordered Iopamidol [Isovue-300 (61%)] Med 07/22/17 20:15 Active 100 ml IV . DIRECTED Lactated Ringers [Ringers, Lactated] 1,000 ml Med 07/22/17 18:45 Active IV ASDIRECTED Sodium Chloride 0.9% [Normal Saline] 80 ml Med 07/22/17 20:15 Active IV ASDIRECTED Sodium Chloride 0.9% [Saline Flush] Med 07/22/17 18:37 Active 10 ml FLUSH ASDIRECTED PRN Peripheral IV Insertion Adult [OM.PC] Urgent Oth 07/22/17 18:37 Ordered Medication Orders Lactated Ringer's (Ringers, Lactated) 1,000 mls @ 999 mls/hr IV ASDIRECTED BRYANT Last Admin: 07/22/17 19:39 Dose: 999 mls/hr Sodium Chloride (Normal Saline) 80 mls @ 3 mls/sec IV ASDIRECTED BRYANT Iopamidol (Isovue-300 (61%)) 100 ml IV . DIRECTED BRYANT Sodium Chloride (Saline Flush) 10 ml FLUSH ASDIRECTED PRN PRN Reason: Keep Vein Open Labs: Laboratory Tests 07/22/17 07/22/17 07/22/17 Range/Units 18:37 18:37 18:37 WBC 4.7 (4.5-11.0) K/uL RBC 4.51 (3.30-5.50) M/uL Hgb 12.4 (12.0-15.0) g/dL Hct 35.5 L (36.0-48.0) % MCV 79 L (80-98) fL MCH 28 (27-31) pg MCHC 35 (32-36) % Plt Count 205 (150-400) K/uL Neut % (Auto) 33 L (36-66) % Lymph % (Auto) 50 H (24-44) % [place] % (Auto) 13 H (2-6) % Eos % (Auto) 3 (2-4) % Baso % (Auto) 0 (0-1) % Sodium 141 (140-148) mmol/L Potassium 4.0 (3.6-5.2) mmol/L Chloride 105 (100-108) mmol/L Carbon Dioxide 26 (21-32) mmol/L Anion Gap 10.2 (5.0-14.0) mmol/L BUN 13 (7-18) mg/dL Creatinine 0.6 (0.6-1.0) mg/dL Est Cr Clr Drug Dosing 106.46 mL/min Estimated GFR (MDRD) > 60 (>60) Glucose 137 H (74-106) mg/dL Lactic Acid 1.2 (0.4-2.0) mmol/L Calcium 8.7 (8.5-10.1) mg/dL Total Bilirubin 0.4 (0.2-1.0) mg/dL AST 20 (15-37) U/L ALT 34 (12-78) U/L Alkaline Phosphatase 76 (46-116) U/L Total Protein 6.7 (6.4-8.2) g/dL Albumin 3.3 L (3.4-5.0) g/dL Globulin 3.4 (2.3-3.5) g/dL Albumin/Globulin Ratio 1.0 L (1.2-2.2) Lipase 101 (73-393) U/L Urine Color Urine Appearance Urine pH (4.5-8.0) Ur Specific [place] (1.008-1.030) Urine Protein (NEGATIVE) mg/dL Urine Glucose (UA) (NEGATIVE) mg/dL Urine Ketones (NEGATIVE) mg/dL Urine Occult Blood (NEGATIVE) Urine Nitrite (NEGATIVE) Urine Bilirubin (NEGATIVE) Urine Urobilinogen (NORMAL) mg/dL Ur Leukocyte Esterase (NEGATIVE) Urine RBC (0-5) Urine WBC (0-5) Ur Epithelial Cells Amorphous Sediment Urine Bacteria Urine Mucus Urine Other Urine HCG, Qual 07/22/17 07/22/17 Range/Units 19:15 19:15 WBC (4.5-11.0) K/uL RBC (3.30-5.50) M/uL Hgb (12.0-15.0) g/dL Hct (36.0-48.0) % MCV (80-98) fL MCH (27-31) pg MCHC (32-36) % Plt Count (150-400) K/uL Neut % (Auto) (36-66) % Lymph % (Auto) (24-44) % [place] % (Auto) (2-6) % Eos % (Auto) (2-4) % Baso % (Auto) (0-1) % Sodium (140-148) mmol/L Potassium (3.6-5.2) mmol/L Chloride (100-108) mmol/L Carbon Dioxide (21-32) mmol/L Anion Gap (5.0-14.0) mmol/L BUN (7-18) mg/dL Creatinine (0.6-1.0) mg/dL Est Cr Clr Drug Dosing mL/min Estimated GFR (MDRD) (>60) Glucose (74-106) mg/dL Lactic Acid (0.4-2.0) mmol/L Calcium (8.5-10.1) mg/dL Total Bilirubin (0.2-1.0) mg/dL AST (15-37) U/L ALT (12-78) U/L Alkaline Phosphatase (46-116) U/L Total Protein (6.4-8.2) g/dL Albumin (3.4-5.0) g/dL Globulin (2.3-3.5) g/dL Albumin/Globulin Ratio (1.2-2.2) Lipase (73-393) U/L Urine Color [place] Urine Appearance Slightly cloudy Urine pH 5.0 (4.5-8.0) Ur Specific [place] 1.030 (1.008-1.030) Urine Protein 30 H (NEGATIVE) mg/dL Urine Glucose (UA) Normal (NEGATIVE) mg/dL Urine Ketones Negative (NEGATIVE) mg/dL Urine Occult Blood Negative (NEGATIVE) Urine Nitrite Positive H (NEGATIVE) Urine Bilirubin Moderate (NEGATIVE) Urine Urobilinogen 4 (NORMAL) mg/dL Ur Leukocyte Esterase Large (NEGATIVE) Urine RBC 0-5 (0-5) Urine WBC 30-40 H (0-5) Ur Epithelial Cells Moderate Amorphous Sediment Few Urine Bacteria Many Urine Mucus Moderate Urine Other Urine HCG, Qual Negative Meds: Medications Generic Name Dose Route Start Last Admin Trade Name Freq PRN Reason Stop Dose Admin Lactated Ringer's 1,000 mls @ 999 mls/hr 07/22/17 18:45 07/22/17 19:39 Ringers, Lactated IV 999 mls/hr ASDIRECTED BRYANT Administration Sodium Chloride 80 mls @ 3 mls/sec 07/22/17 20:15 Normal Saline IV ASDIRECTED BRYANT Iopamidol 100 ml 07/22/17 20:15 Isovue-300 (61%) IV . DIRECTED BRYANT Sodium Chloride 10 ml 07/22/17 18:37 Saline Flush FLUSH ASDIRECTED PRN Keep Vein Open Discontinued Medications Generic Name Dose Route Start Last Admin Trade Name Freq PRN Reason Stop Dose Admin Fentanyl 50 mcg 07/22/17 18:37 07/22/17 19:40 Sublimaze IVPUSH 07/22/17 18:38 50 mcg ONETIME ONE Administration Fentanyl 50 mcg 07/22/17 22:10 07/22/17 22:24 Sublimaze IVPUSH 07/22/17 22:11 50 mcg ONETIME ONE Administration Levofloxacin/Dextrose 750 mg/ 150 mls @ 100 mls/hr 07/22/17 20:24 07/22/17 20 :53 Premix IV 07/22/17 21:53 100 mls/hr ONETIME ONE Administration Ondansetron HCl 4 mg 07/22/17 18:37 07/22/17 19:40 Zofran IVPUSH 07/22/17 18:38 4 mg ONETIME ONE Administration Phenazopyridine HCl 190 mg 07/22/17 22:10 07/22/17 22:25 Urinary Pain Relief PO 07/22/17 22:11 190 mg ONETIME ONE Administration Departure - Departure Time of Disposition: 22:53 Disposition: Home, Self-Care 01 Condition: Good Clinical Impression: Pyelonephritis - Discharge Information Referrals: Melani Vera MD [Primary Care Provider] - Forms: ED Department Discharge Additional Instructions: Take full course of antibiotics, use Pyridium as needed for burning sensation with urination, use hydrocodone as needed for breakthrough pain, use ibuprofen for baseline pain control, Please followup with your primary care provider in 3-5 days if not better, please call return to the emergency department with worsening of symptoms. - My Orders Last 24 Hours: My Active Orders 07/22/17 18:37 Sodium Chloride 0.9% [Saline Flush] 10 ml FLUSH ASDIRECTED PRN Peripheral IV Insertion Adult [OM.PC] Urgent 07/22/17 18:38 Peripheral IV Care [RC] . DIRECTED 07/22/17 18:45 Lactated Ringers [Ringers, Lactated] 1,000 ml IV ASDIRECTED 07/22/17 19:15 HCG QUALITATIVE,URINE [URCHEM] Routine UA W/MICROSCOPIC [URIN] Urgent 07/22/17 20:15 Iopamidol [Isovue-300 (61%)] 100 ml IV . DIRECTED Sodium Chloride 0.9% [Normal Saline] 80 ml IV ASDIRECTED - Assessment/Plan Last 24 Hours: My Active Orders 07/22/17 18:37 Sodium Chloride 0.9% [Saline Flush] 10 ml FLUSH ASDIRECTED PRN Peripheral IV Insertion Adult [OM.PC] Urgent 07/22/17 18:38 Peripheral IV Care [RC] . DIRECTED 07/22/17 18:45 Lactated Ringers [Ringers, Lactated] 1,000 ml IV ASDIRECTED 07/22/17 19:15 HCG QUALITATIVE,URINE [URCHEM] Routine UA W/MICROSCOPIC [URIN] Urgent 07/22/17 20:15 Iopamidol [Isovue-300 (61%)] 100 ml IV . DIRECTED Sodium Chloride 0.9% [Normal Saline] 80 ml IV ASDIRECTED Plan: Assessment Acuity = acute Site and laterality = pyelonephritis right side Etiology = suspicious for bacterial cause Manifestations = right sided flank pain Location of injury = Home Lab values = CBC CMP unremarkable, lactic acid within normal limits urinalysis reveals 30 of protein consistent proteinuria positive for nitrates WBC 30-40 consistent with pyuria with many bacteria cultures pending Plan She was given 750 mg Levaquin IV, discharged home with Levaquin 500 mg by mouth daily 7 days, hydrocodone 5/325 one tab by mouth 3 times a day when necessary total #6 and Pyridium 200 mg 1 tab by mouth 3 times a day 2 days she is to follow-up with primary care in 3-5 days if no improvement This note was dictated using [employer] voice recognition software please call with any questions on syntax or grammar.
[2017-07-22] MEDS ORDERED: Lactated Ringers 1,000 ML IV SCH (18:45)
[2017-07-22] MEDS ORDERED: Sodium Chloride 0.9% 80 ML IV SCH (20:15)
[2017-07-22] MEDS ORDERED: Iopamidol 612 MG/ML 100 ML Bottle IV SCH (20:15)
[2017-07-22] MEDS ORDERED: Levofloxacin/Dextrose 5%-Water 750 MG in Premix Bag 1 BAG IV ONE (20:24)
[2017-07-22] MEDS ORDERED: Phenazopyridine 95 MG Tab PO ONE (22:10)
== END 2017-07-22 23:15 | disposition home or self-care (01) ==
LOC: JP.ED 17:27
DX: N12 Tubulo-interstitial nephritis, not specified as acute or chronic (principal); Z87.891 Personal history of nicotine dependence; Z79.899 Other long term (current) drug therapy; Z88.5 Allergy status to narcotic agent
CPT/HCPCS: 36415; 80053; 81001; 81025; 83605; 83690; 85025; 87086; 87088; 87186; 96361; 96365; 96375; 96376; 99284; A9270; J1956; J2405; J3010; J7120

== ENCOUNTER 2017-11-10 18:10 | Emergency (ER) | payer MEDICAID ==
[2017-11-10] MEDS ORDERED: Sodium Chloride 0.9% 10 ML Syringe FLUSH PRN (19:36)
--- NOTE | 2017-11-10 19:40 | EDM.PDOC ---
ED HPI GENERAL MEDICAL PROBLEM - General Chief Complaint: Genitourinary Problem Stated Complaint: KIDNEY PAIN,BLOOD IN URINE Time Seen by Provider: 11/10/17 18:44 Source of Information: Reports: Patient, Old Records, RN Notes Reviewed History Limitations: Reports: No Limitations - History of Present Illness INITIAL COMMENTS - FREE TEXT/NARRATIVE: 32-year-old female presents to the emergency department today with complaint of urinary issues, she was recently diagnosed with the urinary tract infection about one month ago treated with Bactrim culture did have sensitivity to Bactrim completed a seven-day course, she states her urinary symptoms did resolve except she always had some ongoing back pain. 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: , Other (See Below) 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 History: Hx of cysts on bilateral ovaries Musculoskeletal History: Reports: Other (See Below) Other Musculoskeletal History: siatica Neurological History: Reports: Seizure Psychiatric History: Reports: Addiction, Anxiety, Depression, Other (See Below) Other Psychiatric History: opiates - Infectious Disease History Infectious Disease History: Reports: Chicken Pox - Past Surgical History Head Surgeries/Procedures: Reports: None GI Surgical History: Reports: None Female Surgical History: Reports: None Endocrine Surgical History: Reports: None Musculoskeletal Surgical History: Reports: None Dermatological Surgical History: Reports: None Social & Family History - Family History Family Medical History: Noncontributory - Tobacco Use Smoking Status *Q: Never Smoker - Caffeine Use Caffeine Use: Reports: Coffee, Energy Drinks, Soda Other Caffeine Use: 1 energy drink/day. 2-3 cups coffee/day. - Recreational Drug Use Recreational Drug Use: No - Sexual History Sexual History: Reports: Same Sex Partner - Living Situation & Occupation Living situation: Reports: with Significant Other Occupation: Unemployed (lives with Same Sex partner, Ms. Rm has 4 children ages 2, 10, 14 and 17 yrs. lives in [facility] ED ROS GENERAL - Review of Systems Review Of Systems: See Below Constitutional: Reports: Fever, Chills HEENT: Reports: No Symptoms Respiratory: Reports: No Symptoms Cardiovascular: Reports: No Symptoms GI/Abdominal: Reports: Nausea, Vomiting : Reports: Dysuria, Flank Pain, Frequency Musculoskeletal: Reports: Back Pain ED EXAM, GI/ABD - Physical Exam Exam: See Below Exam Limited By: No Limitations General Appearance: Alert, WD/WN, No Apparent Distress Eyes: Bilateral: Normal Appearance Head: Atraumatic, Normocephalic Neck: Normal Inspection, Supple, Non-Tender, Full Range of Motion Respiratory/Chest: No Respiratory Distress, Lungs Clear, Normal Breath Sounds, No Accessory Muscle Use Cardiovascular: Regular Rate, Rhythm, No Murmur GI/Abdominal Exam: Soft, Tender (Suprapubic right flank area) Back Exam: Normal Inspection, Full Range of Motion, CVA Tenderness (R). No: CVA Tenderness (L), Paraspinal Tenderness, Vertebral Tenderness Course - Vital Signs Last Recorded V/S: Last Vital Signs Temp 97.2 F 11/10/17 18:39 Pulse 67 11/10/17 18:39 Resp 16 11/10/17 18:39 BP 125/71 11/10/17 18:39 Pulse Ox 98 11/10/17 18:39 - Orders/Labs/Meds Orders: Active Orders 24 hr Category Date Time Status Peripheral IV Care [RC] . DIRECTED Care 11/10/17 19:36 Active CULTURE URINE [RM] Urgent Lab 11/10/17 20:58 Ordered HCG QUALITATIVE,URINE [URCHEM] Routine Lab 11/10/17 19:41 Ordered UA W/MICROSCOPIC [URIN] Urgent Lab 11/10/17 18:31 Ordered Lactated Ringers [Ringers, Lactated] 1,000 ml Med 11/10/17 19:45 Active IV ASDIRECTED Sodium Chloride 0.9% [Saline Flush] Med 11/10/17 19:36 Active 10 ml FLUSH ASDIRECTED PRN Peripheral IV Insertion Adult [OM.PC] Urgent Oth 11/10/17 19:36 Ordered Medication Orders Lactated Ringer's (Ringers, Lactated) 1,000 mls @ 999 mls/hr IV ASDIRECTED BRYANT Last Admin: 11/10/17 19:53 Dose: 999 mls/hr Sodium Chloride (Saline Flush) 10 ml FLUSH ASDIRECTED PRN PRN Reason: Keep Vein Open Last Admin: 11/10/17 19:53 Dose: 10 ml Labs: Laboratory Tests 11/10/17 11/10/17 11/10/17 Range/Units 18:31 19:36 19:36 WBC 6.5 (4.5-11.0) K/uL RBC 4.79 (3.30-5.50) M/uL Hgb 13.4 (12.0-15.0) g/dL Hct 39.0 (36.0-48.0) % MCV 81 (80-98) fL MCH 28 (27-31) pg MCHC 34 (32-36) % Plt Count 225 (150-400) K/uL Neut % (Auto) 45 (36-66) % Lymph % (Auto) 40 (24-44) % [place] % (Auto) 8 H (2-6) % Eos % (Auto) 6 H (2-4) % Baso % (Auto) 1 (0-1) % Sodium 139 L (140-148) mmol/L Potassium 4.5 (3.6-5.2) mmol/L Chloride 104 (100-108) mmol/L Carbon Dioxide 26 (21-32) mmol/L Anion Gap 13.5 (5.0-14.0) mmol/L BUN 14 (7-18) mg/dL Creatinine 0.7 (0.6-1.0) mg/dL Est Cr Clr Drug Dosing 95.44 mL/min Estimated GFR (MDRD) > 60 (>60) Glucose 123 H (74-106) mg/dL Lactic Acid (0.4-2.0) mmol/L Calcium 9.0 (8.5-10.1) mg/dL Total Bilirubin 0.2 (0.2-1.0) mg/dL AST 15 (15-37) U/L ALT 32 (12-78) U/L Alkaline Phosphatase 100 (46-116) U/L Total Protein 7.4 (6.4-8.2) g/dL Albumin 3.4 (3.4-5.0) g/dL Globulin 4.0 H (2.3-3.5) g/dL Albumin/Globulin Ratio 0.9 L (1.2-2.2) Urine Color [place] Urine Appearance Turbid Urine pH 6.0 (4.5-8.0) Ur Specific [place] 1.030 (1.008-1.030) Urine Protein Unable to report (NEGATIVE) mg/dL Urine Glucose (UA) Unable to report (NEGATIVE) mg/dL Urine Ketones Unable to report (NEGATIVE) mg/dL Urine Occult Blood Unable to report (NEGATIVE) Urine Nitrite Unable to report (NEGATIVE) Urine Bilirubin Unable to report (NEGATIVE) Urine Urobilinogen Unable to report (NORMAL) mg/dL Ur Leukocyte Esterase Unable to report (NEGATIVE) Urine RBC 5-10 H (0-5) Urine WBC 20-30 H (0-5) Ur Epithelial Cells Moderate Amorphous Sediment Few Urine Bacteria Moderate Urine Mucus Few Urine Other See note Urinalysis Comment 11/10/17 Range/Units 19:36 WBC (4.5-11.0) K/uL RBC (3.30-5.50) M/uL Hgb (12.0-15.0) g/dL Hct (36.0-48.0) % MCV (80-98) fL MCH (27-31) pg MCHC (32-36) % Plt Count (150-400) K/uL Neut % (Auto) (36-66) % Lymph % (Auto) (24-44) % [place] % (Auto) (2-6) % Eos % (Auto) (2-4) % Baso % (Auto) (0-1) % Sodium (140-148) mmol/L Potassium (3.6-5.2) mmol/L Chloride (100-108) mmol/L Carbon Dioxide (21-32) mmol/L Anion Gap (5.0-14.0) mmol/L BUN (7-18) mg/dL Creatinine (0.6-1.0) mg/dL Est Cr Clr Drug Dosing mL/min Estimated GFR (MDRD) (>60) Glucose (74-106) mg/dL Lactic Acid 1.7 (0.4-2.0) mmol/L Calcium (8.5-10.1) mg/dL Total Bilirubin (0.2-1.0) mg/dL AST (15-37) U/L ALT (12-78) U/L Alkaline Phosphatase (46-116) U/L Total Protein (6.4-8.2) g/dL Albumin (3.4-5.0) g/dL Globulin (2.3-3.5) g/dL Albumin/Globulin Ratio (1.2-2.2) Urine Color Urine Appearance Urine pH (4.5-8.0) Ur Specific [place] (1.008-1.030) Urine Protein (NEGATIVE) mg/dL Urine Glucose (UA) (NEGATIVE) mg/dL Urine Ketones (NEGATIVE) mg/dL Urine Occult Blood (NEGATIVE) Urine Nitrite (NEGATIVE) Urine Bilirubin (NEGATIVE) Urine Urobilinogen (NORMAL) mg/dL Ur Leukocyte Esterase (NEGATIVE) Urine RBC (0-5) Urine WBC (0-5) Ur Epithelial Cells Amorphous Sediment Urine Bacteria Urine Mucus Urine Other Urinalysis Comment Meds: Medications Generic Name Dose Route Start Last Admin Trade Name Freq PRN Reason Stop Dose Admin Lactated Ringer's 1,000 mls @ 999 mls/hr 11/10/17 19:45 11/10/17 19:53 Ringers, Lactated IV 999 mls/hr ASDIRECTED BRYANT Administration Sodium Chloride 10 ml 11/10/17 19:36 11/10/17 19:53 Saline Flush FLUSH 10 ml ASDIRECTED PRN Administration Keep Vein Open Discontinued Medications Generic Name Dose Route Start Last Admin Trade Name Freq PRN Reason Stop Dose Admin Ketorolac Tromethamine 30 mg 11/10/17 20:57 Toradol IVPUSH 11/10/17 20:58 ONETIME ONE Ondansetron HCl 4 mg 11/10/17 20:04 11/10/17 20:09 Zofran IVPUSH 11/10/17 20:05 4 mg ONETIME ONE Administration Departure - Departure Time of Disposition: 21:00 Disposition: Home, Self-Care 01 Condition: Good Clinical Impression: UTI, Urinary tract infectious disease - Discharge Information Referrals: Melani Vera MD [Primary Care Provider] - Forms: ED Department Discharge Additional Instructions: Take full course of antibiotics, use Zofran as needed for nausea and vomiting symptoms, Please followup with your primary care provider in 3-5 days if not better, please call return to the emergency department with worsening of symptoms. - My Orders Last 24 Hours: My Active Orders 11/10/17 18:31 UA W/MICROSCOPIC [URIN] Urgent 11/10/17 19:36 Peripheral IV Care [RC] . DIRECTED Sodium Chloride 0.9% [Saline Flush] 10 ml FLUSH ASDIRECTED PRN Peripheral IV Insertion Adult [OM.PC] Urgent 11/10/17 19:41 HCG QUALITATIVE,URINE [URCHEM] Routine 11/10/17 19:45 Lactated Ringers [Ringers, Lactated] 1,000 ml IV ASDIRECTED 11/10/17 20:58 CULTURE URINE [RM] Urgent - Assessment/Plan Last 24 Hours: My Active Orders 11/10/17 18:31 UA W/MICROSCOPIC [URIN] Urgent 11/10/17 19:36 Peripheral IV Care [RC] . DIRECTED Sodium Chloride 0.9% [Saline Flush] 10 ml FLUSH ASDIRECTED PRN Peripheral IV Insertion Adult [OM.PC] Urgent 11/10/17 19:41 HCG QUALITATIVE,URINE [URCHEM] Routine 11/10/17 19:45 Lactated Ringers [Ringers, Lactated] 1,000 ml IV ASDIRECTED 11/10/17 20:58 CULTURE URINE [RM] Urgent Plan: Assessment Acuity = acute Site and laterality = urinary tract infection Etiology = suspicious for bacterial cause Manifestations = fever Location of injury = Home Lab values = CBC, CMP unremarkable urinalysis reveals 5-10 rbc's consistent hematuria and 20-30 WBCs consistent with pyuria cultures pending Plan Because she was recently treated with Bactrim about a month ago will change antibiotics to ciprofloxacin 500 mg by mouth twice a day 7 days, prescription written for Zofran 4 mg ODT 1 tablet every 8 hours when necessary total #5 follow-up primary care 3-5 days if no improvement This note was dictated using [employer] recognition software please call with any questions on syntax or grammar.
[2017-11-10] MEDS ORDERED: Lactated Ringers 1,000 ML IV SCH (19:45)
[2017-11-10] MEDS ORDERED: Ondansetron 4 MG/2 ML SDV IVPUSH ONE (20:04)
[2017-11-10] MEDS ORDERED: Ketorolac 30 MG/ML SDV IVPUSH ONE (20:57)
== END 2017-11-10 21:35 | disposition home or self-care (01) ==
LOC: JP.ED 18:10
DX: N39.0 Urinary tract infection, site not specified (principal); Z88.5 Allergy status to narcotic agent
CPT/HCPCS: 36415; 80053; 81001; 81025; 83605; 85025; 87086; 96361; 96374; 96375; 99284; J1885; J2405; J7050; J7120

== ENCOUNTER 2018-05-02 12:45 | Emergency (ER) | payer MEDICAID ==
[2018-05-02] MEDS ORDERED: Acetaminophen 500 MG Tab PO ONE (14:41)
--- NOTE | 2018-05-02 14:42 | EDM.PDOC ---
ED HPI GENERAL MEDICAL PROBLEM - General Chief Complaint: Back Pain or Injury Stated Complaint: LOW BACK PAIN/ SWOLLEN THROAT Time Seen by Provider: 05/02/18 14:30 Source of Information: Reports: Patient, Old Records, RN History Limitations: Reports: No Limitations - History of Present Illness INITIAL COMMENTS - FREE TEXT/NARRATIVE: 32 yo female here with a low grade fever, low back pain and mild dysuria. Also has a mild sore throat and bilateral ear pain. Onset: Gradual Onset Date: 05/01/18 Duration: Hour(s):, Constant Location: Reports: Neck (throat), Back (low) Quality: Reports: Burning Severity: Moderate Improves with: Reports: Medication Worsens with: Reports: Other (? time) Context: Reports: Other (see HPI) Associated Symptoms: Reports: Fever/Chills. 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) Lower Back Pain Score (Numeric/FACES): 8 - Related Data Allergies Allergy/AdvReac Type Severity Reaction Status Date / Time tramadol Allergy Seizure Verified 05/02/18 13:39 Home Meds: Home Meds Methadone HCl [Methadone] 130 mg PO DAILY 01/28/17 [History] Penicillin V Potassium [Veetids] 500 mg PO Q6H #30 tab 05/02/18 [Rx] Past Medical History Gastrointestinal History: Reports: Hemorrhoids, Other (See Below) Other Gastrointestinal History: abd pain Genitourinary History: Reports: UTI, Recurrent Other Genitourinary History: had incontinient episode with seizure last night 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: , Other (See Below) 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: Hx of cysts on bilateral ovaries Musculoskeletal History: Reports: Other (See Below) Other Musculoskeletal History: siatica Neurological History: Reports: Seizure Other Neuro History: seizures since 2012, none for the last year Psychiatric History: Reports: Addiction, Anxiety, Depression, Other (See Below) Other Psychiatric History: opiates - Infectious Disease History Infectious Disease History: Reports: Chicken Pox - Past Surgical History Head Surgeries/Procedures: Reports: None GI Surgical History: Reports: None Female Surgical History: Reports: None Neurological Surgical History: Reports: None Musculoskeletal Surgical History: Reports: None Dermatological Surgical History: Reports: None Social & Family History - Family History Family Medical History: Noncontributory - Tobacco Use Smoking Status *Q: Never Smoker Second Hand Smoke Exposure: No - Caffeine Use Caffeine Use: Reports: Coffee Other Caffeine Use: 1 energy drink/day. 2-3 cups coffee/day. - Recreational Drug Use Recreational Drug Use: No - Sexual History Sexual History: Reports: Same Sex Partner - Living Situation & Occupation Living situation: Reports: with Significant Other Occupation: Unemployed (lives with Same Sex partner, Ms. Rm has 4 children ages 2, 10, 14 and 17 yrs. lives in [facility] ED ROS GENERAL - Review of Systems Review Of Systems: See Below Constitutional: Reports: Fever HEENT: Reports: Throat Pain Respiratory: Reports: No Symptoms Cardiovascular: Reports: No Symptoms GI/Abdominal: Reports: No Symptoms : Reports: Dysuria Musculoskeletal: Reports: Back Pain Skin: Reports: No Symptoms Neurological: Reports: No Symptoms ED EXAM,LOWER BACK PAIN/INJURY - Physical Exam Exam: See Below Exam Limited By: No Limitations General Appearance: Alert, WD/WN, No Apparent Distress Eye Exam: Bilateral Eye: Normal Inspection Ears: Normal External Exam, Normal Canal, Hearing Grossly Normal Nose: Normal Inspection, No Blood Throat/Mouth: Normal Lips, Normal Oropharynx, Normal Voice, No Airway Compromise , Other (minimal exudates) Head: Atraumatic, Normocephalic Neck: Normal Inspection Respiratory/Chest: No Respiratory Distress, Lungs Clear, Normal Breath Sounds, No Accessory Muscle Use Cardiovascular: Regular Rate, Rhythm, No Edema GI/Abdominal: Normal Bowel Sounds, Soft, Non-Tender, No Organomegaly Back Exam: Normal Inspection. No: CVA Tenderness (R), CVA Tenderness (L) Extremities: Normal Inspection, Normal Range of Motion, Non-Tender, No Pedal Edema Neurological: Alert, Normal Mood/Affect, CN II-XII Intact, No Motor/Sensory Deficits, Oriented x 3 Psychiatric: Normal Affect, Normal Mood Skin Exam: Warm, Dry, Intact, Normal Color, No Rash Lymphatic: No Adenopathy Course - Vital Signs Last Recorded V/S: Last Vital Signs Temp 38.4 C H 05/02/18 14:58 Pulse 91 05/02/18 13:41 Resp 17 05/02/18 13:41 BP 118/79 05/02/18 13:41 Pulse Ox 94 L 05/02/18 13:41 - Orders/Labs/Meds Labs: Laboratory Tests 05/02/18 Range/Units 14:27 Urine Color Yellow Urine Appearance Cloudy Urine pH 5.0 (4.5-8.0) Ur Specific [place] 1.020 (1.008-1.030) Urine Protein Negative (NEGATIVE) mg/dL Urine Glucose (UA) Normal (NEGATIVE) mg/dL Urine Ketones Negative (NEGATIVE) mg/dL Urine Occult Blood Negative (NEGATIVE) Urine Nitrite Negative (NEGATIVE) Urine Bilirubin Negative (NEGATIVE) Urine Urobilinogen Normal (NORMAL) mg/dL Ur Leukocyte Esterase Moderate (NEGATIVE) Urine RBC 0-5 (0-5) Urine WBC 5-10 H (0-5) Ur Epithelial Cells Many Amorphous Sediment Not seen Urine Bacteria Many Urine Mucus Rare Meds: Medications Discontinued Medications Generic Name Dose Route Start Last Admin Trade Name Januszq PRN Reason Stop Dose Admin Acetaminophen 1,000 mg 05/02/18 14:41 05/02/18 14:57 Tylenol Extra Strength PO 05/02/18 14:42 1,000 mg ONETIME ONE Administration Departure - Departure Time of Disposition: 15:13 Disposition: Home, Self-Care 01 Condition: Fair Clinical Impression: Strep throat - Discharge Information *PRESCRIPTION DRUG MONITORING PROGRAM REVIEWED*: No *COPY OF PRESCRIPTION DRUG MONITORING REPORT IN PATIENT GIGI: No Instructions: Strep Throat, [id number] Referrals: PCP,None [Primary Care Provider] - Forms: ED Department Discharge
== END 2018-05-02 15:29 | disposition home or self-care (01) ==
LOC: JP.ED 12:45
DX: J02.0 Streptococcal pharyngitis (principal); Z88.5 Allergy status to narcotic agent; Z79.899 Other long term (current) drug therapy
CPT/HCPCS: 81001; 87430; 99284; A9270; 99282

== ENCOUNTER 2018-06-18 15:06 | Emergency (ER) | payer MEDICAID ==
[2018-06-18] MEDS ORDERED: Methadone 10 MG Tab PO ONE (15:49)
--- NOTE | 2018-06-18 15:55 | EDM.PDOC ---
ED HPI GENERAL MEDICAL PROBLEM - General Chief Complaint: General Stated Complaint: FAINTING, VOMITING Time Seen by Provider: 06/18/18 15:50 Source of Information: Reports: Patient History Limitations: Reports: No Limitations - History of Present Illness INITIAL COMMENTS - FREE TEXT/NARRATIVE: pt arrived with a history of chilling and feeling very exhausted. She is trying to get off of the metadone. 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 Sheis feeling like she is withdrawing. Onset: Today, Gradual, Other (pt has just finished working a 9 day stretch at [employer]. She is having alot of difficulty with custody issues with her children and she has been going back and forth to the [employer],. ) Duration: Day(s):, Other (pt is fatiqued and is feeling very stressed. 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: , Other (See Below) 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: Hx of cysts on bilateral ovaries Musculoskeletal History: Reports: Other (See Below) Other Musculoskeletal History: siatica Neurological History: Reports: Seizure Other Neuro History: seizures since 2012, none for the last year Psychiatric History: Reports: Addiction, Anxiety, Depression, Other (See Below) Other Psychiatric History: opiates - Infectious Disease History Infectious Disease History: Reports: Chicken Pox - Past Surgical History Head Surgeries/Procedures: Reports: None GI Surgical History: Reports: None Female Surgical History: Reports: None Neurological Surgical History: Reports: None Musculoskeletal Surgical History: Reports: None Dermatological Surgical History: Reports: None Social & Family History - Family History Family Medical History: Noncontributory - Tobacco Use Smoking Status *Q: Never Smoker - Caffeine Use Caffeine Use: Reports: Coffee Other Caffeine Use: 1 energy drink/day. 2-3 cups coffee/day. - Recreational Drug Use Recreational Drug Use: No - Sexual History Sexual History: Reports: Same Sex Partner - Living Situation & Occupation Living situation: Reports: with Significant Other Occupation: Unemployed (lives with Same Sex partner, Ms. Rm has 4 children ages 2, 10, 14 and 17 yrs. lives in [facility].) ED ROS GENERAL - Review of Systems Review Of Systems: See Below Constitutional: Reports: Chills, Malaise, Weakness HEENT: Reports: No Symptoms Respiratory: Reports: No Symptoms Cardiovascular: Reports: No Symptoms Endocrine: Reports: No Symptoms GI/Abdominal: Reports: No Symptoms : Reports: Frequency Musculoskeletal: Reports: No Symptoms Skin: Reports: No Symptoms Neurological: Reports: No Symptoms ED EXAM, GENERAL - Physical Exam Exam: See Below Free Text/Narrative:: pt arrived feeluing like she was withdrawing from metadone. 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 , She has just worked a 9 day stretch at [employer] home and is very ehausted. Exam Limited By: No Limitations General Appearance: Alert, No Apparent Distress, Other (pt appears to be very fatiqued. ) Ears: Normal TMs Nose: Normal Inspection Throat/Mouth: Normal Inspection Head: Atraumatic Neck: Normal Inspection Respiratory/Chest: No Respiratory Distress Cardiovascular: Regular Rate, Rhythm GI/Abdominal: Soft, Non-Tender (Female) Exam: Deferred Rectal (Female) Exam: Deferred Back Exam: Normal Inspection Extremities: Normal Inspection Neurological: Alert, Oriented, Normal Cognition Psychiatric: Depressed Mood, Flat Affect Course - Vital Signs Last Recorded V/S: Last Vital Signs Temp 36.1 C 06/18/18 15:22 Pulse 98 06/18/18 15:22 Resp 12 06/18/18 15:22 BP 145/55 H 06/18/18 15:22 Pulse Ox 98 06/18/18 15:22 - Orders/Labs/Meds Orders: Active Orders 24 hr Category Date Time Status CULTURE URINE [RM] Stat Lab 06/18/18 16:28 Received Sodium Chloride 0.9% [Normal Saline] 1,000 ml Med 06/18/18 16:00 Active IV ASDIRECTED Medication Orders Sodium Chloride (Normal Saline) 1,000 mls @ 999 mls/hr IV ASDIRECTED BRYANT Last Admin: 06/18/18 16:07 Dose: 999 mls/hr Labs: Laboratory Tests 06/18/18 06/18/18 06/18/18 Range/Units 15:28 15:28 15:40 WBC 4.1 L (4.5-11.0) K/uL RBC 4.78 (3.30-5.50) M/uL Hgb 13.2 (12.0-15.0) g/dL Hct 38.3 (36.0-48.0) % MCV 80 (80-98) fL MCH 28 (27-31) pg MCHC 35 (32-36) % Plt Count 236 (150-400) K/uL Neut % (Auto) 51 (36-66) % Lymph % (Auto) 40 (24-44) % [place] % (Auto) 7 H (2-6) % Eos % (Auto) 2 (2-4) % Baso % (Auto) 0 (0-1) % Sodium 138 L (140-148) mmol/L Potassium 4.1 (3.6-5.2) mmol/L Chloride 103 (100-108) mmol/L Carbon Dioxide 24 (21-32) mmol/L Anion Gap 15.1 H (5.0-14.0) mmol/L BUN 14 (7-18) mg/dL Creatinine 0.6 (0.6-1.0) mg/dL Est Cr Clr Drug Dosing 111.35 mL/min Estimated GFR (MDRD) > 60 (>60) Glucose 123 H (74-106) mg/dL Calcium 9.4 (8.5-10.1) mg/dL Total Bilirubin 0.4 (0.2-1.0) mg/dL AST 23 (15-37) U/L ALT 35 (12-78) U/L Alkaline Phosphatase 90 (46-116) U/L Total Protein 7.6 (6.4-8.2) g/dL Albumin 3.7 (3.4-5.0) g/dL Globulin 3.9 H (2.3-3.5) g/dL Albumin/Globulin Ratio 1.0 L (1.2-2.2) Urine Color Yellow Urine Appearance Cloudy Urine pH 6.0 (4.5-8.0) Ur Specific [place] 1.015 (1.008-1.030) Urine Protein Negative (NEGATIVE) mg/dL Urine Glucose (UA) Normal (NEGATIVE) mg/dL Urine Ketones Negative (NEGATIVE) mg/dL Urine Occult Blood Large (NEGATIVE) Urine Nitrite Negative (NEGATIVE) Urine Bilirubin Negative (NEGATIVE) Urine Urobilinogen 1 (NORMAL) mg/dL Ur Leukocyte Esterase Negative (NEGATIVE) Urine RBC 20-30 H (0-5) Urine WBC 5-10 H (0-5) Ur Epithelial Cells Many Amorphous Sediment Few Urine Bacteria Not seen Urine Mucus Not seen Meds: Medications Generic Name Dose Route Start Last Admin Trade Name Freq PRN Reason Stop Dose Admin Sodium Chloride 1,000 mls @ 999 mls/hr 06/18/18 16:00 06/18/18 16:07 Normal Saline IV 999 mls/hr ASDIRECTED BRYANT Administration Discontinued Medications Generic Name Dose Route Start Last Admin Trade Name Freq PRN Reason Stop Dose Admin Methadone HCl 100 mg 06/18/18 15:49 06/18/18 16:00 Methadone PO 06/18/18 15:50 100 mg BID ONE Administration - Re-Assessments/Exams Free Text/Narrative Re-Assessment/Exam: 06/18/18 17:20 pt had alot of rbcs and wbcs in the urine . There was very little bacteria. A culture was set up and she will be notified of the culture. She was given methadone 100mg while in ER because she felt like she was withdrawing. Departure - Departure Time of Disposition: 17:15 Disposition: Home, Self-Care 01 Condition: Fair Clinical Impression: Methadone withdrawal, Depression - Discharge Information Referrals: PCP,None [Primary Care Provider] - Forms: ED Department Discharge Care Plan Goals: keep following closely with the metadone taper, push fluids, will notify of the results of the urine culture. - My Orders Last 24 Hours: My Active Orders 06/18/18 16:00 Sodium Chloride 0.9% [Normal Saline] 1,000 ml IV ASDIRECTED 06/18/18 16:28 CULTURE URINE [RM] Stat - Assessment/Plan Last 24 Hours: My Active Orders 06/18/18 16:00 Sodium Chloride 0.9% [Normal Saline] 1,000 ml IV ASDIRECTED 06/18/18 16:28 CULTURE URINE [RM] Stat
[2018-06-18] MEDS ORDERED: Sodium Chloride 0.9% 1,000 ML IV SCH (16:00)
== END 2018-06-18 17:23 | disposition home or self-care (01) ==
LOC: JP.ED 15:06
DX: F15.93 Other stimulant use, unspecified with withdrawal (principal); F32.9 Major depressive disorder, single episode, unspecified; Z88.6 Allergy status to analgesic agent; Z79.899 Other long term (current) drug therapy
CPT/HCPCS: 36415; 80053; 81001; 85025; 87086; 96360; 99283; A9270; J7030

== ENCOUNTER 2018-08-20 11:34 | Emergency (ER) | payer MEDICAID ==
--- NOTE | 2018-08-20 12:42 | EDM.PDOC ---
ED HPI GENERAL MEDICAL PROBLEM - General Chief Complaint: Genitourinary Problem Stated Complaint: LOW BACK PAIN, KIDNEY ISSUES Time Seen by Provider: 08/20/18 12:20 Source of Information: Reports: Patient, RN Notes Reviewed History Limitations: Reports: No Limitations - History of Present Illness INITIAL COMMENTS - FREE TEXT/NARRATIVE: Philomena presents today for complaints of painful urination and low back pain for 2 to 3 days. 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 - Related Data Allergies Allergy/AdvReac Type Severity Reaction Status Date / Time tramadol Allergy Seizure Verified 08/20/18 12:31 Home Meds: Home Meds Methadone HCl [Methadone] 120 mg PO DAILY 01/28/17 [History] Past Medical History HEENT History: Reports: None Cardiovascular History: Reports: None Respiratory History: Reports: None Gastrointestinal History: Reports: Hemorrhoids, Other (See Below) Other Gastrointestinal History: abd pain Genitourinary History: Reports: UTI, Recurrent Other Genitourinary History: had incontinient episode with seizure last night 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: , 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: Hx of cysts on bilateral ovaries Musculoskeletal History: Reports: Other (See Below) Other Musculoskeletal History: SCIATICA Neurological History: Reports: Seizure Other Neuro History: seizures since 2012, none for the last year Psychiatric History: Reports: Addiction, Anxiety, Depression, Other (See Below) Other Psychiatric History: opiates Hematologic History: Reports: None Immunologic History: Reports: None Oncologic (Cancer) History: Reports: None Dermatologic History: Reports: None - Infectious Disease History Infectious Disease History: Reports: Chicken Pox - Past Surgical History Head Surgeries/Procedures: Reports: None HEENT Surgical History: Reports: None Cardiovascular Surgical History: Reports: None Respiratory Surgical History: Reports: None GI Surgical History: Reports: None Female Surgical History: Reports: None Neurological Surgical History: Reports: None Musculoskeletal Surgical History: Reports: None Dermatological Surgical History: Reports: None Social & Family History - Family History Family Medical History: Noncontributory - Tobacco Use Smoking Status *Q: Former Smoker Years of Tobacco use: 2 Packs/Tins Daily: 0.5 Used Tobacco, but Quit: Yes Month/Year Tobacco Last Used: 2012 Second Hand Smoke Exposure: No - Caffeine Use Caffeine Use: Reports: Coffee, Energy Drinks Other Caffeine Use: 1 energy drink/day. 2-3 cups coffee/day. - Recreational Drug Use Recreational Drug Use: No - Sexual History Sexual History: Reports: Same Sex Partner - Living Situation & Occupation Living situation: Reports: with Significant Other Occupation: Unemployed (lives with Same Sex partner, Ms. Rm has 4 children ages 2, 10, 14 and 17 yrs. lives in [facility] ED ROS GENERAL - Review of Systems Review Of Systems: See Below Constitutional: Reports: Chills, Decreased Appetite. Denies: Fever HEENT: Reports: No Symptoms Respiratory: Reports: No Symptoms Cardiovascular: Reports: No Symptoms Endocrine: Reports: No Symptoms GI/Abdominal: Reports: Abdominal Pain, Decreased Appetite, Nausea. Denies: Constipation, Diarrhea, Difficulty Swallowing, Distension, Vomiting : Reports: Dysuria, Flank Pain, Frequency, Pain, Urgency. Denies: Discharge, Hematuria, Incontinence, Irregular Menses Musculoskeletal: Reports: No Symptoms Skin: Reports: No Symptoms Neurological: Reports: No Symptoms Psychiatric: Reports: No Symptoms Hematologic/Lymphatic: Reports: No Symptoms Immunologic: Reports: No Symptoms ED EXAM, RENAL/ - Physical Exam Exam: See Below Text/Narrative:: Philomena presents today with complaints of frequency, dysuria and bilateral flank pain for 2 days. She has not tried anything to help her symptoms. She reports a history of frequent UTIs. Exam Limited By: No Limitations General Appearance: Alert, WD/WN, Mild Distress Eye Exam: Bilateral Eye: Normal Inspection, PERRL, Other (2mm) Ears: Normal External Exam, Normal Canal, Hearing Grossly Normal, Normal TMs Throat/Mouth: Normal Inspection, Normal Lips, Normal Teeth, Normal Gums, Normal Oropharynx, Normal Voice, No Airway Compromise Head: Atraumatic, Normocephalic Neck: Normal Inspection, Supple, Non-Tender, Full Range of Motion Respiratory/Chest: No Respiratory Distress, Lungs Clear, Normal Breath Sounds, No Accessory Muscle Use, Chest Non-Tender Cardiovascular: Normal Peripheral Pulses, Regular Rate, Rhythm, No Edema, No Gallop, No Murmur, No Rub GI/Abdominal: Normal Bowel Sounds, Soft, Non-Tender, No Organomegaly, No Distention, No Mass. No: Distended, Guarding, Rigid, Rebound Back Exam: Full Range of Motion, CVA Tenderness (R), CVA Tenderness (L). No: Decreased Range of Motion, Muscle Spasm, Paraspinal Tenderness, Vertebral Tenderness Extremities: Normal Inspection, Normal Range of Motion, Non-Tender, No Pedal Edema, Normal Capillary Refill Neurological: Alert, Oriented, CN II-XII Intact, Normal Cognition, Normal Gait, No Motor/Sensory Deficits Psychiatric: Normal Affect, Normal Mood Skin Exam: Warm, Dry, Intact, Normal Color, No Rash Lymphatic: No Adenopathy Course - Vital Signs Last Recorded V/S: Last Vital Signs Temp 37.7 C 08/20/18 12:30 Pulse 89 08/20/18 12:30 Resp 16 08/20/18 12:30 BP 125/72 08/20/18 12:30 Pulse Ox 96 08/20/18 12:30 - Orders/Labs/Meds Orders: Active Orders 24 hr Category Date Time Status CULTURE URINE [RM] Stat Lab 08/20/18 13:02 Received Labs: Laboratory Tests 08/20/18 Range/Units 12:25 Urine Color Yellow Urine Appearance Clear Urine pH 5.0 (4.5-8.0) Ur Specific [place] 1.020 (1.008-1.030) Urine Protein Negative (NEGATIVE) mg/dL Urine Glucose (UA) Normal (NEGATIVE) mg/dL Urine Ketones Negative (NEGATIVE) mg/dL Urine Occult Blood Trace (NEGATIVE) Urine Nitrite Negative (NEGATIVE) Urine Bilirubin Negative (NEGATIVE) Urine Urobilinogen Normal (NORMAL) mg/dL Ur Leukocyte Esterase Small (NEGATIVE) Urine RBC 0-5 (0-5) Urine WBC 10-20 H (0-5) Ur Epithelial Cells Moderate Amorphous Sediment Not seen Urine Bacteria Few Urine Mucus Moderate Urine Other UA negative for acute infection Culture will be completed Wet prep collected Wet prep positive for bacterial vaginosis Patient notified of results, she is in agreement with plan Meds: Medications Discontinued Medications Generic Name Dose Route Start Last Admin Trade Name Freq PRN Reason Stop Dose Admin Ibuprofen 800 mg 08/20/18 12:54 08/20/18 13:01 Motrin PO 08/20/18 12:55 800 mg ONETIME ONE Administration Departure - Departure Time of Disposition: 13:15 Disposition: Home, Self-Care 01 Condition: Good Clinical Impression: Bacterial vaginosis - Discharge Information *PRESCRIPTION DRUG MONITORING PROGRAM REVIEWED*: Not Applicable *COPY OF PRESCRIPTION DRUG MONITORING REPORT IN PATIENT GIGI: Not Applicable Instructions: Bacterial Vaginosis, [id number] Referrals: PCP,None [Primary Care Provider] - Forms: ED Department Discharge, ED Return to Work/School Form Additional Instructions: You are suffering from bacterial vaginosis Your urine did not show infection, however we did culture it to make sure no bacteria grows. We will notify you of any need for antibiotics in three days. Push frequent water daily. Avoid sugary drinks/caffeine. Take metronidazole 500mg tablet twice per day for 7 days. Take fluconazole 150mg tablet on day 5 of metronidazole use - can sometimes get a yeast infection. Take ibuprofen 800mg by mouth three times a day for pain/discomfort. You can also take acetaminophen 1000mg by mouth three times a day for pain/ discomfort as well. You can also buy saline based lubricant such as Rephresh lubricant to the vagina twice per day for moisturization. Avoid baths and soaps to the genitals for 7 days, use water to wash. Return for any worsening, issues or concerns. - My Orders Last 24 Hours: My Active Orders 08/20/18 13:02 CULTURE URINE [RM] Stat - Assessment/Plan Last 24 Hours: My Active Orders 08/20/18 13:02 CULTURE URINE [RM] Stat Assessment:: Bacterial vaginosis Plan: Patient suffering from bacterial vaginosis Urine did not show infection, however we did culture it to make sure no bacteria grows. Patient will need to be notified of any need for antibiotics in three days. Push frequent water daily. Avoid sugary drinks/caffeine. Take metronidazole 500mg tablet twice per day for 7 days. Take fluconazole 150mg tablet on day 5 of metronidazole use - can sometimes get a yeast infection. Take ibuprofen 800mg by mouth three times a day for pain/discomfort. She can also take acetaminophen 1000mg by mouth three times a day for pain/ discomfort as well. She can also buy saline based lubricant such as Rephresh lubricant to the vagina twice per day for moisturization. Avoid baths and soaps to the genitals for 7 days, use water to wash. Return for any worsening, issues or concerns.
[2018-08-20] MEDS ORDERED: Ibuprofen 800 MG Tab PO ONE (12:54)
== END 2018-08-20 13:31 | disposition home or self-care (01) ==
LOC: JP.ED 11:34
DX: N76.0 Acute vaginitis (principal); F41.9 Anxiety disorder, unspecified; F32.9 Major depressive disorder, single episode, unspecified; Z88.6 Allergy status to analgesic agent; Z87.891 Personal history of nicotine dependence
CPT/HCPCS: 81001; 87086; 87088; 87186; 87210; 99283; A9270

== ENCOUNTER 2018-09-09 19:50 | Emergency (ER) | payer MEDICAID ==
[2018-09-09] MEDS ORDERED: fentaNYL 100 MCG/2 ML SDV IVPUSH ONE (20:20)
[2018-09-09] MEDS ORDERED: Ondansetron 4 MG/2 ML SDV IVPUSH ONE (20:20)
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
[2018-09-09] MEDS: Sodium Chloride 0.9% 10 ML Syringe FLUSH PRN ×4 (20:30→22:05)
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
[2018-09-09] MEDS ORDERED: HYDROmorphone 1 MG/ML Syringe IVPUSH ONE (21:57)
== END 2018-09-09 22:50 | disposition home or self-care (01) ==
LOC: JP.ED 19:50
DX: S02.2XXA Fracture of nasal bones, initial encounter for closed fracture (principal); Z79.899 Other long term (current) drug therapy; Z88.6 Allergy status to analgesic agent; Y08.89XA Assault by other specified means, initial encounter
CPT/HCPCS: 70450; 70486; 96374; 96375; 99283; J1170; J2405; J3010

== ENCOUNTER 2018-09-17 07:33 | Emergency (ER) | payer MEDICAID ==
[2018-09-17] MEDS ORDERED: Proparacaine 0.5% Ophth Soln 15 ML Bottle EYELF ONE (08:11)
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
== END 2018-09-17 09:02 | disposition home or self-care (01) ==
LOC: JP.ED 07:33
DX: H11.32 Conjunctival hemorrhage, left eye (principal); Z79.899 Other long term (current) drug therapy; Z88.5 Allergy status to narcotic agent; Z87.891 Personal history of nicotine dependence
CPT/HCPCS: 99283; A9270

== ENCOUNTER 2018-12-12 19:35 | Emergency (ER) | payer MEDICAID ==
--- NOTE | 2018-12-12 20:11 | EDM.PDOC ---
ED HPI GENERAL MEDICAL PROBLEM - General Chief Complaint: Abdominal Pain Stated Complaint: FAST HEART RATE,LOWER ABD PAIN Time Seen by Provider: 12/12/18 20:00 Source of Information: Reports: Patient History Limitations: Reports: No Limitations - History of Present Illness INITIAL COMMENTS - FREE TEXT/NARRATIVE: 33-year-old female with lower abdominal pain, dysuria and weakness for the past 2 days. She is also felt palpitations, she is concerned she might be dehydrated. She has no fever, no nausea or vomiting, no diarrhea. She does have dysuria and increased urinary frequency. Onset: Gradual Duration: Day(s): (2 days) Associated Symptoms: Reports: Loss of Appetite, Malaise, Weakness Lower Abdominal Pain Score (Numeric/FACES): 6 - Related Data Allergies Allergy/AdvReac Type Severity Reaction Status Date / Time tramadol Allergy Seizure Verified 12/12/18 19:53 Home Meds: Home Meds Methadone HCl [Methadone] 108 mg PO DAILY 01/28/17 [History] Biotin 1,000 mcg PO DAILY 12/12/18 [History] Multivitamin [Multi-Day Vitamins] 1 tab PO DAILY 12/12/18 [History] Past Medical History Cardiovascular History: Reports: Hypertension Gastrointestinal History: Reports: Hemorrhoids Other Gastrointestinal History: abd pain Genitourinary History: Reports: Pyelonephritis, UTI, Recurrent Other Genitourinary History: had incontinient episode with seizure last night 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: , Other (See Below) Other LICENSED LAND SURVEYOR History: Hx of cysts on bilateral ovaries Musculoskeletal History: Reports: Other (See Below) Other Musculoskeletal History: SCIATICA Neurological History: Reports: Seizure Other Neuro History: seizures since 2012, Psychiatric History: Reports: Addiction, Anxiety, Depression Other Psychiatric History: opiates Hematologic History: Reports: Iron Deficiency - Infectious Disease History Infectious Disease History: Reports: Chicken Pox, Influenza - Past Surgical History Head Surgeries/Procedures: Reports: None GI Surgical History: Reports: None Neurological Surgical History: Reports: None Musculoskeletal Surgical History: Reports: None Social & Family History - Family History Family Medical History: Noncontributory - Tobacco Use Smoking Status *Q: Former Smoker Used Tobacco, but Quit: Yes Month/Year Tobacco Last Used: 2012 - Caffeine Use Caffeine Use: Reports: Coffee, Energy Drinks Other Caffeine Use: 1 energy drink/day. 2-3 cups coffee/day. - Recreational Drug Use Recreational Drug Use: Yes Drug Use in Last 12 Months: No - Sexual History Sexual History: Reports: Same Sex Partner - Living Situation & Occupation Living situation: Reports: with Significant Other Occupation: Unemployed (lives with Same Sex partner, Ms. Rm has 4 children ages 2, 10, 14 and 17 yrs. lives in [facility] ED ROS GENERAL - Review of Systems Review Of Systems: See Below Constitutional: Reports: Chills, Malaise. Denies: Fever HEENT: Reports: No Symptoms Respiratory: Denies: Shortness of Breath Cardiovascular: Reports: Palpitations GI/Abdominal: Reports: Abdominal Pain (Lower abdomen is uncomfortable) : Reports: Dysuria, Frequency Skin: Reports: No Symptoms Neurological: Reports: Weakness ED EXAM, GENERAL - Physical Exam Exam: See Below Exam Limited By: No Limitations General Appearance: Alert, No Apparent Distress Eye Exam: Bilateral Eye: Normal Inspection (Good hydration) Respiratory/Chest: No Respiratory Distress Cardiovascular: Regular Rate, Rhythm GI/Abdominal: Normal Bowel Sounds, Soft, Tender (Does have some tenderness across the lower abdomen, no distention) Neurological: Alert, Oriented Skin Exam: Warm, Dry Course - Vital Signs Last Recorded V/S: Last Vital Signs Temp 99.2 F 12/12/18 19:59 Pulse 89 12/12/18 19:59 Resp 16 12/12/18 19:59 BP 140/87 12/12/18 19:59 Pulse Ox 100 12/12/18 19:59 - Orders/Labs/Meds Orders: Active Orders 24 hr Category Date Time Status CULTURE URINE [RM] Stat Lab 12/12/18 20:25 Received Labs: Laboratory Tests 12/12/18 Range/Units 20:06 Urine Color Yellow (YELLOW) Urine Appearance Cloudy A (CLEAR) Urine pH 6.5 (5.0-8.0) Ur Specific Zanoni 1.020 (1.008-1.030) Urine Protein Negative (NEGATIVE) mg/dL Urine Glucose (UA) Negative (NEGATIVE) mg/dL Urine Ketones Negative (NEGATIVE) mg/dL Urine Occult Blood Moderate H (NEGATIVE) Urine Nitrite Negative (NEGATIVE) Urine Bilirubin Negative (NEGATIVE) Urine Urobilinogen 1.0 (0.2-1.0) EU/dL Ur Leukocyte Esterase Trace H (NEGATIVE) Urine RBC 0-5 (0-5) Urine WBC 0-5 (0-5) Ur Epithelial Cells Many Amorphous Sediment Not seen Urine Bacteria Moderate Urine Mucus Not seen - Re-Assessments/Exams Free Text/Narrative Re-Assessment/Exam: 12/12/18 20:25 The UA was obtained, the urine was cloudy. There is bacteria present but not inflammatory response such as WBCs or nitrate. No RBCs. Ketones are negative. A culture will be obtained and the patient will be placed on Macrodantin for the next 7 days, and should recheck with her primary provider in 2 or 3 days for further evaluation as she has had bacterial vaginosis in the past. Departure - Departure Time of Disposition: 20:54 Disposition: Home, Self-Care 01 Clinical Impression: Urinary tract infection - Discharge Information Instructions: Urinary Tract Infection, Adult, [id number] Referrals: Melani Vera MD [Primary Care Provider] - Forms: ED Department Discharge Care Plan Goals: Rest, fluids, increase activity as tolerated and consider rechecking in 2-3 days if not starting to improve significantly. Return anytime sooner if worsening such as vomiting medication or fever, or increased pain. - My Orders Last 24 Hours: My Active Orders 12/12/18 20:25 CULTURE URINE [RM] Stat - Assessment/Plan Last 24 Hours: My Active Orders 12/12/18 20:25 CULTURE URINE [RM] Stat
== END 2018-12-12 20:55 | disposition home or self-care (01) ==
LOC: JP.ED 19:35
DX: N39.0 Urinary tract infection, site not specified (principal); I10 Essential (primary) hypertension; Z87.891 Personal history of nicotine dependence; Z88.8 Allergy status to other drugs, medicaments and biological substances; Z79.899 Other long term (current) drug therapy
CPT/HCPCS: 81001; 87086; 99284

== ENCOUNTER 2019-02-27 14:45 | Emergency (ER) | payer MEDICAID ==
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
[2019-02-27] MEDS ORDERED: Ketorolac 60 MG/2 ML SDV IM ONE (16:00)
== END 2019-02-27 16:17 | disposition home or self-care (01) ==
LOC: JP.ED 14:45
DX: K04.7 Periapical abscess without sinus (principal); S02.5XXA Fracture of tooth (traumatic), initial encounter for closed fracture; I10 Essential (primary) hypertension; Z88.5 Allergy status to narcotic agent; Z87.891 Personal history of nicotine dependence; Y04.8XXA Assault by other bodily force, initial encounter
CPT/HCPCS: 99282

== ENCOUNTER 2020-01-18 18:22 | Emergency (ER) | payer MEDICAID ==
[2020-01-18] MEDS ORDERED: Ibuprofen 600 MG Tab PO ONE (20:53)
--- NOTE | 2020-01-18 20:56 | EDM.PDOC ---
ED HPI GENERAL MEDICAL PROBLEM - General Chief Complaint: Fever Stated Complaint: SORE THROAT Time Seen by Provider: 01/18/20 20:45 Source of Information: Reports: Patient, Old Records, RN History Limitations: Reports: No Limitations - History of Present Illness INITIAL COMMENTS - FREE TEXT/NARRATIVE: 34 yo female presents with a sore throat, body aches, low grade fever and a r are, dry cough. Needs a note for work. Onset: Gradual Onset Date: 01/16/20 Duration: Day(s):, Getting Worse Location: Reports: Neck (throat), Generalized Quality: Reports: Ache (body) Severity: Moderate Improves with: Reports: Medication Worsens with: Reports: Other (time) Context: Reports: Other (See HPI) Associated Symptoms: Reports: Cough (rare), Fever/Chills (low grade), Malaise, Other (body aches) Treatments GRINDER HAND: Reports: Acetaminophen body aches Pain Score (Numeric/FACES): 7 sore throat Pain Score (Numeric/FACES): 7 - Related Data Allergies Allergy/AdvReac Type Severity Reaction Status Date / Time tramadol Allergy Seizure Verified 01/18/20 20:30 Home Meds: Home Meds Methadone HCl [Methadone] 123 mg PO DAILY 01/28/17 [History] Biotin 1,000 mcg PO DAILY 12/12/18 [History] Multivitamin [Multi-Day Vitamins] 1 tab PO DAILY 12/12/18 [History] Past Medical History Cardiovascular History: Reports: Hypertension Gastrointestinal History: Reports: Hemorrhoids Other Gastrointestinal History: abd pain Genitourinary History: Reports: Pyelonephritis, UTI, Recurrent Other Genitourinary History: had incontinient episode with seizure last night 01/06/2018 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: , Other (See Below) 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 TECHNICIAN History: Hx of cysts on bilateral ovaries Musculoskeletal History: Reports: Other (See Below) Other Musculoskeletal History: SCIATICA Neurological History: Reports: Seizure Other Neuro History: seizures since 2012, Psychiatric History: Reports: Addiction, Anxiety, Depression Other Psychiatric History: opiates Hematologic History: Reports: Iron Deficiency - Infectious Disease History Infectious Disease History: Reports: Chicken Pox - Past Surgical History Head Surgeries/Procedures: Reports: None GI Surgical History: Reports: None Neurological Surgical History: Reports: None Musculoskeletal Surgical History: Reports: None Social & Family History - Family History Family Medical History: Noncontributory - Tobacco Use Tobacco Use Status *Q: Never Tobacco User - Caffeine Use Caffeine Use: Reports: Coffee, Energy Drinks, Soda Other Caffeine Use: 1 energy drink/day. 2-3 cups coffee/day. - Recreational Drug Use Recreational Drug Use: No - Sexual History Sexual History: Reports: Same Sex Partner - Living Situation & Occupation Living situation: Reports: with Significant Other Occupation: Unemployed (lives with Same Sex partner, Ms. Rm has 4 children ages 2, 10, 14 and 17 yrs. lives in [facility] ED ROS ENT - Review of Systems Review Of Systems: See Below Constitutional: Reports: No Symptoms HEENT: Reports: Throat Pain. Denies: Ear Discharge, Ear Pain, Rhinitis, Sinus Problem, Throat Swelling Respiratory: Reports: Cough (rare). Denies: Shortness of Breath, Wheezing, Pleuritic Chest Pain, Sputum Cardiovascular: Reports: No Symptoms Endocrine: Reports: No Symptoms GI/Abdominal: Reports: No Symptoms : Reports: No Symptoms Musculoskeletal: Reports: Other (diffuse body aches) Skin: Reports: No Symptoms Neurological: Reports: No Symptoms ED EXAM, ENT - Physical Exam Exam: See Below Exam Limited By: No Limitations General Appearance: Alert, WD/WN, No Apparent Distress Eye Exam: Bilateral Eye: Normal Inspection Ears: Normal External Exam, Normal Canal, Hearing Grossly Normal, Normal TMs Nose: Normal Inspection, No Blood Mouth/Throat: Normal Inspection, Normal Lips, Normal Oropharynx. No: Hoarse Voice, Lip Swelling, Muffled Voice, Oral Ulcers, Tonsillar Erythema, Tonsillar Exudates, Tonsillar Swelling, Uvular Deviation Head: Atraumatic, Normocephalic Neck: Normal Inspection. No: Lymphadenopathy (R), Lymphadenopathy (L) Respiratory/Chest: No Respiratory Distress, Lungs Clear, Normal Breath Sounds, No Accessory Muscle Use Cardiovascular: Regular Rate, Rhythm, No Edema GI/Abdominal: Normal Bowel Sounds, Soft, Non-Tender, No Distention Back: Normal Inspection. No: CVA Tenderness (R), CVA Tenderness (L) Extremities: Normal Inspection, Normal Range of Motion, Non-Tender, No Pedal Edema Neurological: Alert, Oriented, CN II-XII Intact, Normal Cognition, No Motor/Sensory Deficits Psychiatric: Normal Affect, Normal Mood Skin: Warm, Dry, Intact, Normal Color, No Rash Course - Vital Signs Last Recorded V/S: Last Vital Signs Temp 36.9 C 01/18/20 20:32 Pulse 74 01/18/20 20:32 Resp 18 01/18/20 20:32 BP 123/71 01/18/20 20:32 Pulse Ox 99 01/18/20 20:32 - Orders/Labs/Meds Orders: Active Orders 24 hr Category Date Time Status CORONAVIRUS COVID-19, CHERISE Routine Lab 01/18/20 20:53 Ordered CULTURE STREP A CONFIRMATION [RM] Stat Lab 01/18/20 20:30 Results STREP SCRN A RAPID W CULT CONF [RM] Stat Lab 01/18/20 20:30 Results Meds: Medications Discontinued Medications Generic Name Dose Route Start Last Admin Trade Name Garrison PRN Reason Stop Dose Admin Ibuprofen 600 mg 01/18/20 20:53 Motrin PO 01/18/20 20:54 ONETIME ONE Departure - Departure Time of Disposition: 21:05 Disposition: Home, Self-Care 01 Condition: Fair Clinical Impression: Viral illness - Discharge Information *PRESCRIPTION DRUG MONITORING PROGRAM REVIEWED*: No *COPY OF PRESCRIPTION DRUG MONITORING REPORT IN PATIENT GIGI: No Instructions: Viral Illness, Adult Referrals: PCP,None [Primary Care Provider] - Forms: ED Department Discharge, ED Return to Work/School Form Additional Instructions: Take acetaminophen 1000 mg every 6 hrs for pain and fever control. Add ibuprofen 600 mg every 6 hrs with food for added relief. Drink enough fluids so that your urine is light yellow in color. Rest. Isolate yourself from others and wash your hands often to prevent spread. Wear a mask when around others. Your Covid test should be back on the weekend. Sepsis Event Note (ED) - Evaluation Sepsis Screening Result: No Definite Risk - Focused Exam Vital Signs: Vital Signs Temp Pulse Resp BP Pulse Ox 01/18/20 20:32 36.9 C 74 18 123/71 99 01/18/20 20:04 36.9 C 74 18 123/71 99 - My Orders Last 24 Hours: My Active Orders 01/18/20 20:30 CULTURE STREP A CONFIRMATION [RM] Stat STREP SCRN A RAPID W CULT CONF [RM] Stat 01/18/20 20:53 CORONAVIRUS COVID-19, CHERISE Routine - Assessment/Plan Last 24 Hours: My Active Orders 01/18/20 20:30 CULTURE STREP A CONFIRMATION [RM] Stat STREP SCRN A RAPID W CULT CONF [RM] Stat 01/18/20 20:53 CORONAVIRUS COVID-19, CHERISE Routine
== END 2020-01-18 21:27 | disposition home or self-care (01) ==
LOC: JP.ED 18:22
DX: U07.1 COVID-19 (principal); Z88.5 Allergy status to narcotic agent; I10 Essential (primary) hypertension
CPT/HCPCS: 87081; 87880-QW; 99283; A9270-GY; U0002

== ENCOUNTER 2020-02-03 06:39 | Emergency (ER) | payer MEDICAID ==
[2020-02-03] MEDS ORDERED: Sodium Chloride 0.9% 10 ML Syringe FLUSH PRN (06:47)
[2020-02-03] MEDS ORDERED: Sodium Chloride 0.9% 1,000 ML IV SCH (07:00)
[2020-02-03] MEDS ORDERED: Dexamethasone 4 MG/ML SDV IVPUSH ONE (08:23)
--- NOTE | 2020-02-03 08:39 | EDM.PDOC ---
ED HPI GENERAL MEDICAL PROBLEM - General Chief Complaint: Respiratory Problem Stated Complaint: TESTED POSITIVE FOR COVID Time Seen by Provider: 02/03/20 08:00 Source of Information: Reports: Patient History Limitations: Reports: No Limitations - History of Present Illness INITIAL COMMENTS - FREE TEXT/NARRATIVE: This is a 34-year-old female with history of anxiety who presents with concerns of sore throat/tingling in back of her mouth. She was diagnosed with COVID-19 approximately 10 days ago. She is actually been doing quite well, returned to work earlier this week and works several days. Yesterday evening she was at home, making items for her daughter's birthday democrat when she started noticing a discomfort in the back of her throat. Since that time this is increased in severity. She occasionally will feel as if it is difficult to move air and will cough to clear this. Otherwise has no cough or shortness of breath. She has no chest pain. She has no history of significant allergic reactions. Starting this morning she did start to notice a nonraised red rash on her trunk and upper extremities. She has had no fevers. Also last night she felt like her tongue was more swollen on the right side, but this has improved, she almost felt like there was a ball underneath the right side of her tongue. - Related Data Allergies Allergy/AdvReac Type Severity Reaction Status Date / Time tramadol Allergy Seizure Verified 02/03/20 06:58 Home Meds: Home Meds RX: Methadone HCl [Methadone] 123 mg PO DAILY 01/28/17 [History] RX: Biotin 1,000 mcg PO DAILY 12/12/18 [History] RX: Multivitamin [Multi-Day Vitamins] 1 tab PO DAILY 12/12/18 [History] Past Medical History Cardiovascular History: Reports: Hypertension Gastrointestinal History: Reports: Hemorrhoids Other Gastrointestinal History: abd pain Genitourinary History: Reports: Pyelonephritis, UTI, Recurrent Other Genitourinary History: had incontinient episode with seizure last night 01/06/2018 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: , Other (See Below) 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: Hx of cysts on bilateral ovaries Musculoskeletal History: Reports: Other (See Below) Other Musculoskeletal History: SCIATICA Neurological History: Reports: Seizure Other Neuro History: seizures since 2012, from tramadol allergy Psychiatric History: Reports: Addiction, Anxiety, Depression Other Psychiatric History: opiates Hematologic History: Reports: Anemia, Iron Deficiency - Infectious Disease History Infectious Disease History: Reports: Chicken Pox, Novel Coronavirus - Past Surgical History Head Surgeries/Procedures: Reports: None GI Surgical History: Reports: None Neurological Surgical History: Reports: None Musculoskeletal Surgical History: Reports: None Social & Family History - Family History Family Medical History: No Pertinent Family History - Tobacco Use Tobacco Use Status *Q: Never Tobacco User - Caffeine Use Caffeine Use: Reports: Coffee, Energy Drinks, Soda Other Caffeine Use: 1 energy drink/day. 2-3 cups coffee/day. - Recreational Drug Use Recreational Drug Use: No - Sexual History Sexual History: Reports: Same Sex Partner - Living Situation & Occupation Living situation: Reports: with Significant Other Occupation: Unemployed (lives with Same Sex partner, Ms. Rm has 4 children ages 2, 10, 14 and 17 yrs. lives in [facility] ED ROS GENERAL - Review of Systems Review Of Systems: See Below Constitutional: Reports: No Symptoms HEENT: Reports: Throat Pain, Throat Swelling Respiratory: Reports: No Symptoms Cardiovascular: Reports: No Symptoms Endocrine: Reports: No Symptoms GI/Abdominal: Reports: No Symptoms : Reports: No Symptoms Musculoskeletal: Reports: No Symptoms Skin: Reports: No Symptoms Neurological: Reports: No Symptoms Psychiatric: Reports: No Symptoms Hematologic/Lymphatic: Reports: No Symptoms Immunologic: Reports: No Symptoms ED EXAM, GENERAL - Physical Exam Exam: See Below Exam Limited By: No Limitations General Appearance: Alert, No Apparent Distress Ears: Normal External Exam Nose: Normal Inspection Throat/Mouth: Normal Inspection, No Airway Compromise (No oropharyngeal swelling or edema. The tongue is not swollen. There are some relatively engorged veins on the bottom of the right side of the tongue.) Head: Atraumatic, Normocephalic Neck: Normal Inspection, Full Range of Motion Respiratory/Chest: No Respiratory Distress, Lungs Clear, Normal Breath Sounds. No: Wheezing, Stridor Cardiovascular: Normal Peripheral Pulses GI/Abdominal: Soft, Non-Tender, No Distention Back Exam: Normal Inspection Extremities: Normal Inspection Neurological: Alert, Oriented, Normal Cognition, Normal Gait, No Motor/Sensory Deficits. No: Inattentive, Confused Psychiatric: Normal Affect, Normal Mood Skin Exam: Warm, Other (Scattered, blanching morbilliform rash on the upper extremities and trunk. No raised lesions or urticaria.) Course - Vital Signs Last Recorded V/S: Last Vital Signs Temp 36.0 C L 02/03/20 06:47 Pulse 90 02/03/20 06:47 Resp 18 02/03/20 06:47 BP 150/107 H 02/03/20 06:47 Pulse Ox 100 02/03/20 06:47 - Orders/Labs/Meds Orders: Active Orders 24 hr Category Date Time Status CULTURE BLOOD [BC] Urgent Lab 02/03/20 07:22 Received CULTURE BLOOD [BC] Urgent Lab 02/03/20 07:40 Received UA W/MICROSCOPIC [URIN] Stat Lab 02/03/20 06:47 Ordered Acetaminophen [TylenoL] Med 02/03/20 10:08 Once 650 mg PO NOW ONE Ibuprofen [Motrin] Med 02/03/20 10:08 Once 400 mg PO ONETIME ONE Sodium Chloride 0.9% [Normal Saline] 1,000 ml Med 02/03/20 07:00 Active IV ASDIRECTED Sodium Chloride 0.9% [Saline Flush] Med 02/03/20 06:47 Active 10 ml FLUSH ASDIRECTED PRN Blood Culture x2 Reflex Set [OM.PC] Urgent Oth 02/03/20 06:47 Ordered Saline Lock Insert [OM.PC] Routine Oth 02/03/20 06:47 Ordered Medication Orders Sodium Chloride (Normal Saline) 1,000 mls @ 500 mls/hr IV ASDIRECTED BRYANT Last Admin: 02/03/20 07:53 Dose: 500 mls/hr Documented by: [id number] Sodium Chloride (Saline Flush) 10 ml FLUSH ASDIRECTED PRN PRN Reason: Keep Vein Open Last Admin: 02/03/20 07:54 Dose: 10 ml Documented by: [id number] Labs: Laboratory Tests 02/03/20 02/03/20 02/03/20 Range/Units 07:16 07:16 07:16 WBC 5.8 (4.5-11.0) K/uL RBC 4.67 (3.30-5.50) M/uL Hgb 13.6 (12.0-15.0) g/dL Hct 39.9 (36.0-48.0) % MCV 85 (80-98) fL MCH 29 (27-31) pg MCHC 34 (32-36) % Plt Count 317 (150-400) K/uL Neut % (Auto) 47 (36-66) % Lymph % (Auto) 40 (24-44) % Mccone % (Auto) 11 H (2-6) % Eos % (Auto) 3 (2-4) % Baso % (Auto) 1 (0-1) % ESR 23 (0-25) mm/hr Sodium 138 L (140-148) mmol/L Potassium 3.4 L (3.6-5.2) mmol/L Chloride 100 (100-108) mmol/L Carbon Dioxide 27 (21-32) mmol/L Anion Gap 14.4 H (5.0-14.0) mmol/L BUN 12 (7-18) mg/dL Creatinine 0.8 (0.6-1.0) mg/dL Est Cr Clr Drug Dosing 78.37 mL/min Estimated GFR (MDRD) > 60 (>60) Glucose 96 (74-106) mg/dL Lactic Acid 1.1 (0.4-2.0) mmol/L Calcium 9.1 (8.5-10.1) mg/dL Ferritin 155 (8-388) ng/ml Total Bilirubin 0.5 (0.2-1.0) mg/dL AST 17 (15-37) U/L ALT 29 (12-78) U/L Alkaline Phosphatase 73 (46-116) U/L Lactate Dehydrogenase 222 (82-234) U/L C-Reactive Protein 0.10 (0.0-0.3) mg/dL Total Protein 8.5 H (6.4-8.2) g/dL Albumin 4.4 (3.4-5.0) g/dL Globulin 4.1 H (2.3-3.5) g/dL Albumin/Globulin Ratio 1.1 L (1.2-2.2) Meds: Medications Generic Name Dose Route Start Last Admin Trade Name Freq PRN Reason Stop Dose Admin Sodium Chloride 1,000 mls @ 500 mls/hr 02/03/20 07:00 02/03/20 07:53 Normal Saline IV 500 mls/hr ASDIRECTED BRYANT Administration Sodium Chloride 10 ml 02/03/20 06:47 02/03/20 07:54 Saline Flush FLUSH 10 ml ASDIRECTED PRN Administration Keep Vein Open Discontinued Medications Generic Name Dose Route Start Last Admin Trade Name Freq PRN Reason Stop Dose Admin Dexamethasone 10 mg 02/03/20 08:23 02/03/20 08:30 Decadron IVPUSH 02/03/20 08:24 10 mg ONETIME ONE Administration - Re-Assessments/Exams Free Text/Narrative Re-Assessment/Exam: This is a 34-year-old female who presents with concerns of throat swelling/tightness as well as rash. She recently recovered from COVID-19 infection. On exam here she is found to have normal vital signs. She is breathing comfortably, she has no stridor or oropharyngeal edema. I cannot appreciate any tongue swelling or angioedema. She is also noted to have a scattered morbilliform rash. Chest x-ray is clear. Labs are pending. I reviewed up-to-date and it does appear that there is a rash similar to what the patient is displaying that is associated with convalescence from COVID-19. I do not think that she is having an allergic reaction. She has no evidence of upper airway compromise. Nothing to suggest deep space neck infection or Krissy's angina. Given this question of abscesses allergic, but also to treat her sore throat, we are going to give her a dose of IV dexamethasone. I suspect she will be safe for discharge, we will keep her in the ED for a couple hours to observe symptoms. 02/03/20 08:45 Free Text/Narrative Re-Assessment/Exam: On re-assessment rash has completely resolved. Still with sore throat, but no difficulty breathing. Labs re-assuring. Safe for discharge with supportive care, discussed this as well as returning to the ER for worsening - she lives close by. 02/03/20 10:09 Departure - Departure Time of Disposition: 10:11 Disposition: Home, Self-Care 01 Clinical Impression: Sore throat - Discharge Information *PRESCRIPTION DRUG MONITORING PROGRAM REVIEWED*: No *COPY OF PRESCRIPTION DRUG MONITORING REPORT IN PATIENT GIGI: No Instructions: Pharyngitis, Sore Throat, [id number] Referrals: PCP,None [Primary Care Provider] - Forms: ED Department Discharge Additional Instructions: Your work up in the ER today was re-assuring that your breathing is stable and there is not an emergency causing your symptoms. As discussed, you rash may have been due to resolving COVID-19. Please push fluids at home and take tylenol or ibuprofen for sore throat. If you feel like your breathing is worsening please return to the ER, we are always happy to evaluate you. Thank you for letting us care for you today. Sepsis Event Note (ED) - Evaluation Sepsis Screening Result: No Definite Risk - Focused Exam Vital Signs: Vital Signs Temp Pulse Resp BP Pulse Ox 02/03/20 06:47 36.0 C L 90 18 150/107 H 100 - My Orders Last 24 Hours: My Active Orders 02/03/20 10:08 Acetaminophen [TylenoL] 650 mg PO NOW ONE Ibuprofen [Motrin] 400 mg PO ONETIME ONE - Assessment/Plan Last 24 Hours: My Active Orders 02/03/20 10:08 Acetaminophen [TylenoL] 650 mg PO NOW ONE Ibuprofen [Motrin] 400 mg PO ONETIME ONE
--- NOTE | 2020-02-03 09:23 | CR ---
CHEST: Portable 02/03/2020 at 7:39 AM CLINICAL HISTORY:Covid positive, increasing dyspnea COMPARISON:2018 FINDINGS: The heart size, pulmonary vascularity and hilar structures are normal. No infiltrate effusion or pneumothorax is seen. IMPRESSION: No acute cardiopulmonary process.
[2020-02-03] MEDS ORDERED: Acetaminophen 325 MG Tab PO ONE (10:08)
[2020-02-03] MEDS ORDERED: Ibuprofen 400 MG Tab PO ONE (10:08)
== END 2020-02-03 11:15 | disposition home or self-care (01) ==
LOC: JP.ED 06:39
DX: J02.9 Acute pharyngitis, unspecified (principal); Z88.5 Allergy status to narcotic agent
CPT/HCPCS: 36415; 71045; 80053; 82728; 83605; 83615; 85025; 85651; 86140; 87040; 96374; 99283; A9270; J1100; J7030

== ENCOUNTER 2020-02-05 19:59 | Emergency (ER) | payer MEDICAID ==
[2020-02-05] MEDS ORDERED: LORazepam 1 MG Tab PO ONE (20:40)
--- NOTE | 2020-02-05 20:43 | EDM.PDOC ---
ED HPI GENERAL MEDICAL PROBLEM - General Chief Complaint: General Stated Complaint: COVID POSITIVE Time Seen by Provider: 02/05/20 20:27 Source of Information: Reports: Patient, Old Records, RN Notes Reviewed History Limitations: Reports: No Limitations - History of Present Illness INITIAL COMMENTS - FREE TEXT/NARRATIVE: 34-year-old female presents emergency department a complaint of not feeling well, chest pressure, she is 18 days out from the Covid diagnosis, states she has not been doing well with the disease will have good days and bad days usually goes in cycles of 3 she has not followed up with her primary care was evaluated in the emergency department 2 days prior extensive work-up at that time was negative markers were all within normal limits is not hypoxic very anxious headache Pain Score (Numeric/FACES): 6 chest pressure Pain Score (Numeric/FACES): 6 - Related Data Allergies Allergy/AdvReac Type Severity Reaction Status Date / Time tramadol Allergy Seizure Verified 02/05/20 20:11 Home Meds: Home Meds Methadone HCl [Methadone] 123 mg PO DAILY 01/28/17 [History] Biotin 1,000 mcg PO DAILY 12/12/18 [History] Multivitamin [Multi-Day Vitamins] 1 tab PO DAILY 12/12/18 [History] Past Medical History Cardiovascular History: Reports: Hypertension Gastrointestinal History: Reports: Hemorrhoids Other Gastrointestinal History: abd pain Genitourinary History: Reports: Pyelonephritis, UTI, Recurrent Other Genitourinary History: had incontinient episode with seizure last night 01/06/2018 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: , Other (See Below) 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: Hx of cysts on bilateral ovaries Musculoskeletal History: Reports: Other (See Below) Other Musculoskeletal History: SCIATICA Neurological History: Reports: Seizure Other Neuro History: seizures since 2012, from tramadol allergy Psychiatric History: Reports: Addiction, Anxiety, Depression Other Psychiatric History: opiates Hematologic History: Reports: Anemia, Iron Deficiency - Infectious Disease History Infectious Disease History: Reports: Chicken Pox, Novel Coronavirus - Past Surgical History Head Surgeries/Procedures: Reports: None Cardiovascular Surgical History: Reports: None Respiratory Surgical History: Reports: None GI Surgical History: Reports: None Female Surgical History: Reports: None Endocrine Surgical History: Reports: None Neurological Surgical History: Reports: None Musculoskeletal Surgical History: Reports: None Dermatological Surgical History: Reports: None Social & Family History - Family History Family Medical History: No Pertinent Family History - Tobacco Use Tobacco Use Status *Q: Never Tobacco User - Caffeine Use Caffeine Use: Reports: Coffee, Energy Drinks, Soda Other Caffeine Use: 1 energy drink/day. 2-3 cups coffee/day. - Recreational Drug Use Recreational Drug Use: No - Sexual History Sexual History: Reports: Same Sex Partner - Living Situation & Occupation Living situation: Reports: with Significant Other Occupation: Unemployed (lives with Same Sex partner, Ms. Rm has 4 children ages 2, 10, 14 and 17 yrs. lives in [facility] ED ROS GENERAL - Review of Systems Review Of Systems: See Below Constitutional: Reports: Weakness, Fatigue HEENT: Reports: No Symptoms Respiratory: Reports: No Symptoms Cardiovascular: Reports: Chest Pain GI/Abdominal: Reports: No Symptoms : Reports: No Symptoms Psychiatric: Reports: Anxiety ED EXAM, GENERAL - Physical Exam Exam: See Below Exam Limited By: No Limitations General Appearance: Alert, Anxious Eye Exam: Bilateral Eye: Normal Inspection, PERRL Ears: Normal External Exam Nose: Normal Inspection, Normal Mucosa, No Blood Throat/Mouth: Normal Inspection, Normal Lips, Normal Teeth, Normal Gums, Normal Oropharynx, Normal Voice, No Airway Compromise Head: Atraumatic, Normocephalic Neck: Normal Inspection, Supple, Non-Tender, Full Range of Motion Respiratory/Chest: No Respiratory Distress, Lungs Clear, Normal Breath Sounds, No Accessory Muscle Use, Chest Non-Tender Cardiovascular: Regular Rate, Rhythm, No Murmur GI/Abdominal: Soft Back Exam: Normal Inspection, Full Range of Motion. No: CVA Tenderness (R), CVA Tenderness (L) Extremities: Normal Inspection, Normal Range of Motion, Non-Tender, No Pedal Edema Neurological: Alert, Oriented Psychiatric: Anxious Course - Vital Signs Last Recorded V/S: Last Vital Signs Temp 98.9 F 02/05/20 21:38 Pulse 77 02/05/20 21:38 Resp 13 02/05/20 21:38 BP 136/86 02/05/20 21:38 Pulse Ox 98 02/05/20 21:38 - Orders/Labs/Meds Orders: Active Orders 24 hr Category Date Time Status Isolation [COMM] Stat Oth 02/05/20 20:40 Ordered Labs: Laboratory Tests 02/05/20 02/05/20 02/05/20 Range/Units 21:00 21:00 21:00 WBC 5.4 (4.5-11.0) K/uL RBC 4.37 (3.30-5.50) M/uL Hgb 12.9 (12.0-15.0) g/dL Hct 38.2 (36.0-48.0) % MCV 87 (80-98) fL MCH 30 (27-31) pg MCHC 34 (32-36) % Plt Count 306 (150-400) K/uL Neut % (Auto) 38 (36-66) % Lymph % (Auto) 50 H (24-44) % [place] % (Auto) 9 H (2-6) % Eos % (Auto) 2 (2-4) % Baso % (Auto) 1 (0-1) % D-Dimer, Quantitative 307.06 (0.0-500.0) ng/mL Sodium (140-148) mmol/L Potassium (3.6-5.2) mmol/L Chloride (100-108) mmol/L Carbon Dioxide (21-32) mmol/L Anion Gap (5.0-14.0) mmol/L BUN (7-18) mg/dL Creatinine (0.6-1.0) mg/dL Est Cr Clr Drug Dosing mL/min Estimated GFR (MDRD) (>60) Glucose (74-106) mg/dL Lactic Acid (0.4-2.0) mmol/L Calcium (8.5-10.1) mg/dL Ferritin 85 (8-388) ng/ml Total Bilirubin (0.2-1.0) mg/dL Direct Bilirubin (0.0-0.2) mg/dL Indirect Bilirubin AST (15-37) U/L ALT (12-78) U/L Alkaline Phosphatase (46-116) U/L Lactate Dehydrogenase (82-234) U/L Troponin I (0.000-0.056) ng/mL C-Reactive Protein (0.0-0.3) mg/dL Total Protein (6.4-8.2) g/dL Albumin (3.4-5.0) g/dL Globulin (2.3-3.5) g/dL Albumin/Globulin Ratio (1.2-2.2) Procalcitonin ng/mL 1102/05/20 02/05/20 Range/Units 21:00 21:00 21:00 WBC (4.5-11.0) K/uL RBC (3.30-5.50) M/uL Hgb (12.0-15.0) g/dL Hct (36.0-48.0) % MCV (80-98) fL MCH (27-31) pg MCHC (32-36) % Plt Count (150-400) K/uL Neut % (Auto) (36-66) % Lymph % (Auto) (24-44) % [place] % (Auto) (2-6) % Eos % (Auto) (2-4) % Baso % (Auto) (0-1) % D-Dimer, Quantitative (0.0-500.0) ng/mL Sodium 139 L (140-148) mmol/L Potassium 3.4 L (3.6-5.2) mmol/L Chloride 102 (100-108) mmol/L Carbon Dioxide 29 (21-32) mmol/L Anion Gap 11.4 (5.0-14.0) mmol/L BUN 8 (7-18) mg/dL Creatinine 0.8 (0.6-1.0) mg/dL Est Cr Clr Drug Dosing 78.37 mL/min Estimated GFR (MDRD) > 60 (>60) Glucose 103 (74-106) mg/dL Lactic Acid 1.2 (0.4-2.0) mmol/L Calcium 8.6 (8.5-10.1) mg/dL Ferritin (8-388) ng/ml Total Bilirubin 0.3 (0.2-1.0) mg/dL Direct Bilirubin 0.12 (0.0-0.2) mg/dL Indirect Bilirubin 0.18 AST 13 L (15-37) U/L ALT 27 (12-78) U/L Alkaline Phosphatase 65 (46-116) U/L Lactate Dehydrogenase 159 (82-234) U/L Troponin I (0.000-0.056) ng/mL C-Reactive Protein < 0.05 (0.0-0.3) mg/dL Total Protein 7.4 (6.4-8.2) g/dL Albumin 3.9 (3.4-5.0) g/dL Globulin 3.5 (2.3-3.5) g/dL Albumin/Globulin Ratio 1.1 L (1.2-2.2) Procalcitonin < 0.05 ng/mL 02/05/20 Range/Units 21:00 WBC (4.5-11.0) K/uL RBC (3.30-5.50) M/uL Hgb (12.0-15.0) g/dL Hct (36.0-48.0) % MCV (80-98) fL MCH (27-31) pg MCHC (32-36) % Plt Count (150-400) K/uL Neut % (Auto) (36-66) % Lymph % (Auto) (24-44) % [place] % (Auto) (2-6) % Eos % (Auto) (2-4) % Baso % (Auto) (0-1) % D-Dimer, Quantitative (0.0-500.0) ng/mL Sodium (140-148) mmol/L Potassium (3.6-5.2) mmol/L Chloride (100-108) mmol/L Carbon Dioxide (21-32) mmol/L Anion Gap (5.0-14.0) mmol/L BUN (7-18) mg/dL Creatinine (0.6-1.0) mg/dL Est Cr Clr Drug Dosing mL/min Estimated GFR (MDRD) (>60) Glucose (74-106) mg/dL Lactic Acid (0.4-2.0) mmol/L Calcium (8.5-10.1) mg/dL Ferritin (8-388) ng/ml Total Bilirubin (0.2-1.0) mg/dL Direct Bilirubin (0.0-0.2) mg/dL Indirect Bilirubin AST (15-37) U/L ALT (12-78) U/L Alkaline Phosphatase (46-116) U/L Lactate Dehydrogenase (82-234) U/L Troponin I < 0.017 (0.000-0.056) ng/mL C-Reactive Protein (0.0-0.3) mg/dL Total Protein (6.4-8.2) g/dL Albumin (3.4-5.0) g/dL Globulin (2.3-3.5) g/dL Albumin/Globulin Ratio (1.2-2.2) Procalcitonin ng/mL Meds: Medications Discontinued Medications Generic Name Dose Route Start Last Admin Trade Name Garrison PRN Reason Stop Dose Admin Ibuprofen 600 mg 02/05/20 21:37 02/05/20 21:40 Motrin PO 02/05/20 21:38 600 mg ONETIME ONE Administration Lorazepam 1 mg 02/05/20 20:40 02/05/20 21:37 Ativan PO 02/05/20 20:41 1 mg ONETIME ONE Administration Departure - Departure Time of Disposition: 22:00 Disposition: Home, Self-Care 01 Condition: Poor Clinical Impression: Anxiety - Discharge Information Instructions: Managing Anxiety, Adult Referrals: PCP,None [Primary Care Provider] - Forms: ED Department Discharge Additional Instructions: Try the Ativan as needed for anxiety symptoms please discuss this with your primary care provider tomorrow Sepsis Event Note (ED) - Evaluation Sepsis Screening Result: No Definite Risk - Focused Exam Vital Signs: Vital Signs Temp Pulse Resp BP Pulse Ox 02/05/20 21:38 98.9 F 77 13 136/86 98 02/05/20 20:18 99.4 F 75 15 137/84 98 02/05/20 20:12 99.4 F 75 15 137/84 98 - My Orders Last 24 Hours: My Active Orders 02/05/20 20:40 Isolation [COMM] Stat - Assessment/Plan Last 24 Hours: My Active Orders 02/05/20 20:40 Isolation [COMM] Stat Plan: Assessment Acuity = acute Site and laterality = anxiety Etiology = generalized anxiety disorder Manifestations = none Location of injury = Home Lab values = all lab work performed troponin inflammatory markers within normal limits Plan She had good relief with the Ativan provided however she is very upset with myself did complain to nursing staff she was not treated properly was not taken seriously as to her condition she is interested in filing form a complaint therefore those paperwork was provided to her prescription written for Ativan 1 mg p.o. 3 times daily as needed she has a follow-up appointment with her primary care provider tomorrow This note was dictated using [employer] recognition software please call with any questions on syntax or grammar.
[2020-02-05] MEDS ORDERED: Ibuprofen 600 MG Tab PO ONE (21:37)
== END 2020-02-05 22:26 | disposition home or self-care (01) ==
LOC: JP.ED 19:59
DX: F41.9 Anxiety disorder, unspecified (principal); I10 Essential (primary) hypertension
CPT/HCPCS: 36415; 80048; 80076; 82728; 83605; 83615; 84145; 84484; 85025; 85379; 86140; 99283; A9270

== ENCOUNTER 2020-04-16 19:12 | Emergency (ER) | payer MEDICAID ==
[2020-04-16] MEDS ORDERED: Morphine 4 MG/ML Syringe IVPUSH PRN (20:10)
[2020-04-16] MEDS ORDERED: Aspirin 81 MG Tab.Chew PO ONE (20:10)
[2020-04-16] MEDS ORDERED: Sodium Chloride 0.9% 10 ML Syringe FLUSH PRN (20:10)
--- NOTE | 2020-04-16 20:14 | EDM.PDOC ---
ED HPI GENERAL MEDICAL PROBLEM - General Chief Complaint: Cardiovascular Problem Stated Complaint: CHEST PAINS Time Seen by Provider: 04/16/20 20:06 Source of Information: Reports: Patient, Family, RN Notes Reviewed History Limitations: Reports: No Limitations - History of Present Illness INITIAL COMMENTS - FREE TEXT/NARRATIVE: 34-year-old female presents emergency department a complaint of chest pain, she states that chest pain started about 4 hours prior constant squeezing up into the left side of her chest she does feel short of breath no nausea does feel sweaty with the pain. She has no history of cardiovascular disease no history of dyslipidemia family history father myocardial infarction age 52 she does not use tobacco products (former), rates the pain 6 out of 10 recently took ibuprofen 800 mg without any relief Left Chest Pain Score (Numeric/FACES): 6 - Related Data Allergies Allergy/AdvReac Type Severity Reaction Status Date / Time tramadol Allergy Seizure Verified 04/16/20 19:31 Home Meds: Home Meds Methadone HCl [Methadone] 123 mg PO DAILY 01/28/17 [History] Biotin 1,000 mcg PO DAILY 12/12/18 [History] Multivitamin [Multi-Day Vitamins] 1 tab PO DAILY 12/12/18 [History] Past Medical History Cardiovascular History: Reports: Hypertension Gastrointestinal History: Reports: GERD, Hemorrhoids Other Gastrointestinal History: abd pain Genitourinary History: Reports: Pyelonephritis, UTI, Recurrent Other Genitourinary History: had incontinient episode with seizure last night 01/06/2018 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: , Other (See Below) 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: Hx of cysts on bilateral ovaries Musculoskeletal History: Reports: Other (See Below) Other Musculoskeletal History: SCIATICA Neurological History: Reports: Seizure Other Neuro History: seizures since 2012, from tramadol allergy Psychiatric History: Reports: Addiction, Anxiety, Depression Other Psychiatric History: opiates Hematologic History: Reports: Anemia, Iron Deficiency - Infectious Disease History Infectious Disease History: Reports: Chicken Pox, Novel Coronavirus - Past Surgical History Head Surgeries/Procedures: Reports: None Cardiovascular Surgical History: Reports: None Respiratory Surgical History: Reports: None GI Surgical History: Reports: None Female Surgical History: Reports: None Endocrine Surgical History: Reports: None Neurological Surgical History: Reports: None Musculoskeletal Surgical History: Reports: None Dermatological Surgical History: Reports: None Social & Family History - Family History Family Medical History: No Pertinent Family History - Tobacco Use Tobacco Use Status *Q: Former Tobacco User Packs/Tins Daily: 1 Used Tobacco, but Quit: Yes Month/Year Tobacco Last Used: 04/2012 - Caffeine Use Caffeine Use: Reports: Coffee Other Caffeine Use: 1 energy drink/day. 2-3 cups coffee/day. - Recreational Drug Use Recreational Drug Use: No - Sexual History Sexual History: Reports: Same Sex Partner - Living Situation & Occupation Living situation: Reports: with Significant Other Occupation: Unemployed (lives with Same Sex partner, Ms. Rm has 4 children ages 2, 10, 14 and 17 yrs. [facility] ED ROS GENERAL - Review of Systems Review Of Systems: See Below Constitutional: Reports: No Symptoms, Diaphoresis HEENT: Reports: No Symptoms Respiratory: Reports: Shortness of Breath Cardiovascular: Reports: Chest Pain GI/Abdominal: Reports: No Symptoms ED EXAM, GENERAL - Physical Exam Exam: See Below Exam Limited By: No Limitations General Appearance: Alert, Mild Distress Respiratory/Chest: No Respiratory Distress, Lungs Clear, Normal Breath Sounds, No Accessory Muscle Use, Chest Non-Tender Cardiovascular: Regular Rate, Rhythm, No Murmur GI/Abdominal: Soft, Non-Tender Extremities: No Pedal Edema Course - Vital Signs Last Recorded V/S: Last Vital Signs Temp 98.1 F 04/16/20 19:30 Pulse 99 04/16/20 19:30 Resp 18 04/16/20 19:30 BP 134/69 04/16/20 19:30 Pulse Ox 97 04/16/20 19:30 - Orders/Labs/Meds Orders: Active Orders 24 hr Category Date Time Status Cardiac Monitoring [RC] .As Directed Care 04/16/20 20:10 Active EKG Documentation Completion [RC] ASDIRECTED Care 04/16/20 20:11 Active Peripheral IV Care [RC] . DIRECTED Care 04/16/20 20:11 Active Chest 1V Frontal [CR] Stat Exams 04/16/20 20:11 Taken Morphine Med 04/16/20 20:10 Active 4 mg IVPUSH Q10M PRN Sodium Chloride 0.9% [Saline Flush] Med 04/16/20 20:10 Active 10 ml FLUSH ASDIRECTED PRN Peripheral IV Insertion Adult [OM.PC] Stat Oth 04/16/20 20:10 Ordered EKG 12 Lead [EK] Stat Ther 04/16/20 20:11 Ordered Medication Orders Morphine Sulfate (Morphine) 4 mg IVPUSH Q10M PRN PRN Reason: Chest Pain Stop: 04/17/20 20:10 Last Admin: 04/16/20 20:35 Dose: 4 mg Documented by: SONNY Sodium Chloride (Saline Flush) 10 ml FLUSH ASDIRECTED PRN PRN Reason: Keep Vein Open Last Admin: 04/16/20 21:08 Dose: 10 ml Documented by: SONNY Labs: Laboratory Tests 04/16/20 04/16/20 04/16/20 Range/Units 20:21 20:21 20:21 WBC 6.4 (4.5-11.0) K/uL RBC 4.34 (3.30-5.50) M/uL Hgb 13.1 (12.0-15.0) g/dL Hct 38.6 (36.0-48.0) % MCV 89 (80-98) fL MCH 30 (27-31) pg MCHC 34 (32-36) % Plt Count 251 (150-400) K/uL Neut % (Auto) 47 (36-66) % Lymph % (Auto) 39 (24-44) % [place] % (Auto) 9 H (2-6) % Eos % (Auto) 4 (2-4) % Baso % (Auto) 1 (0-1) % Sodium 137 L (140-148) mmol/L Potassium 4.1 (3.6-5.2) mmol/L Chloride 102 (100-108) mmol/L Carbon Dioxide 27 (21-32) mmol/L Anion Gap 12.1 (5.0-14.0) mmol/L BUN 14 D (7-18) mg/dL Creatinine 0.7 (0.6-1.0) mg/dL Est Cr Clr Drug Dosing 89.56 mL/min Estimated GFR (MDRD) > 60 (>60) Glucose 147 H (74-106) mg/dL Lactic Acid 1.3 (0.4-2.0) mmol/L Calcium 9.1 (8.5-10.1) mg/dL Total Bilirubin 0.2 (0.2-1.0) mg/dL AST 11 L (15-37) U/L ALT 23 (12-78) U/L Alkaline Phosphatase 64 (46-116) U/L Troponin I < 0.017 (0.000-0.056) ng/mL Total Protein 7.5 (6.4-8.2) g/dL Albumin 3.7 (3.4-5.0) g/dL Globulin 3.8 H (2.3-3.5) g/dL Albumin/Globulin Ratio 1.0 L (1.2-2.2) Meds: Medications Generic Name Dose Route Start Last Admin Trade Name Freq PRN Reason Stop Dose Admin Morphine Sulfate 4 mg 04/16/20 20:10 04/16/20 20:35 Morphine IVPUSH 04/17/20 20:10 4 mg Q10M PRN Administration Chest Pain Sodium Chloride 10 ml 04/16/20 20:10 04/16/20 21:08 Saline Flush FLUSH 10 ml ASDIRECTED PRN Administration Keep Vein Open Discontinued Medications Generic Name Dose Route Start Last Admin Trade Name Freq PRN Reason Stop Dose Admin Aspirin 324 mg 04/16/20 20:10 04/16/20 20:35 Aspirin PO 04/16/20 20:11 324 mg ONETIME ONE Administration Lorazepam 1 mg 04/16/20 22:02 04/16/20 22:14 Ativan IVPUSH 04/16/20 22:03 1 mg ONETIME ONE Administration Ondansetron HCl 4 mg 04/16/20 21:26 04/16/20 21:30 Zofran IVPUSH 04/16/20 21:27 4 mg ONETIME ONE Administration Departure - Departure Time of Disposition: 22:59 Disposition: Home, Self-Care 01 Condition: Fair Clinical Impression: Atypical chest pain Instructions: Nonspecific Chest Pain, Adult Referrals: Melani Vera MD [Primary Care Provider] - Forms: ED Department Discharge, ED Return to Work/School Form Additional Instructions: Use Ativan as needed for chest pain-like symptoms, please followup with your primary care provider in 3-5 days if not better, please call return to the emergency department with worsening of symptoms. Sepsis Event Note (ED) - Evaluation Sepsis Screening Result: No Definite Risk - Focused Exam Vital Signs: Vital Signs Temp Pulse Resp BP Pulse Ox 04/16/20 19:30 98.1 F 99 18 134/69 97 - My Orders Last 24 Hours: My Active Orders 04/16/20 20:10 Cardiac Monitoring [RC] .As Directed Morphine 4 mg IVPUSH Q10M PRN Sodium Chloride 0.9% [Saline Flush] 10 ml FLUSH ASDIRECTED PRN Peripheral IV Insertion Adult [OM.PC] Stat 04/16/20 20:11 EKG Documentation Completion [RC] ASDIRECTED Peripheral IV Care [RC] . DIRECTED Chest 1V Frontal [CR] Stat EKG 12 Lead [EK] Stat - Assessment/Plan Last 24 Hours: My Active Orders 04/16/20 20:10 Cardiac Monitoring [RC] .As Directed Morphine 4 mg IVPUSH Q10M PRN Sodium Chloride 0.9% [Saline Flush] 10 ml FLUSH ASDIRECTED PRN Peripheral IV Insertion Adult [OM.PC] Stat 04/16/20 20:11 EKG Documentation Completion [RC] ASDIRECTED Peripheral IV Care [RC] . DIRECTED Chest 1V Frontal [CR] Stat EKG 12 Lead [EK] Stat Plan: Assessment Acuity = acute Site and laterality = atypical chest pain Etiology = probably related to anxiety Manifestations = none Location of injury = Home Lab values = CBC CMP troponin all within normal limits EKG demonstrates normal sinus rhythm no ST elevations or depressions, chest x-ray shows no acute process Plan Had good relief with Ativan 1 mg prescription written for Ativan 1 mg p.o. 3 times daily as needed total #10 follow-up primary care 3 to 5 days if not better This note was dictated using [employer] voice recognition software please call with any questions on syntax or grammar.
[2020-04-16] MEDS ORDERED: Ondansetron 4 MG/2 ML SDV IVPUSH ONE (21:26)
[2020-04-16] MEDS ORDERED: LORazepam 2 MG/ML SDV IVPUSH ONE (22:02)
--- NOTE | 2020-04-17 09:12 | CR ---
CHEST: Portable 04/16/2020 at 9:19 PM CLINICAL HISTORY:Chest pain COMPARISON:02/03/2020 FINDINGS: The heart size, pulmonary vascularity and hilar structures are normal. No infiltrate effusion or pneumothorax is seen. IMPRESSION: No acute cardiopulmonary process.
== END 2020-04-16 23:23 | disposition home or self-care (01) ==
LOC: JP.ED 19:12
DX: R07.89 Other chest pain (principal); I10 Essential (primary) hypertension; Z87.891 Personal history of nicotine dependence; Z88.5 Allergy status to narcotic agent
CPT/HCPCS: 36415; 71045; 80053; 83605; 84484; 85025; 93005; 93010; 96374; 96375; 99285; A9270; J2060; J2270; J2405; 99283

== ENCOUNTER 2021-02-17 05:10 | Emergency (ER) | payer MEDICAID ==
--- NOTE | 2021-02-17 05:53 | EDM.PDOC ---
ED HPI GENERAL MEDICAL PROBLEM - General Chief Complaint: Chest Pain Stated Complaint: CHEST TIGHTENING Time Seen by Provider: 02/17/21 05:43 Source of Information: Reports: Patient History Limitations: Reports: No Limitations - History of Present Illness INITIAL COMMENTS - FREE TEXT/NARRATIVE: 35-year-old female who was scrubbing the floors last night, using some chemicals and afterwards started developing a tight sensation in her left chest. It hurts to take a deep breath and she feels slightly short of breath. It made it difficult to sleep last night because she kept waking up with painful breathing. No nausea or vomiting, no diaphoresis, but her hands feel "cold". No cough. No cold symptoms. She has chronic anxiety and is very nervous about her health. She has not taken any Tylenol or ibuprofen Onset: Sudden (Started fairly suddenly at 5:30 PM, 24 hours ago but is slowly worsened) Duration: Hour(s): (24 hours) Location: Reports: Chest (Left chest) Improves with: Reports: None Worsens with: Reports: Breathing, Movement chest Pain Score (Numeric/FACES): 5 - Related Data Allergies Allergy/AdvReac Type Severity Reaction Status Date / Time tramadol Allergy Seizure Verified 02/17/21 05:19 Home Meds: Home Meds Methadone HCl [Methadone] 84 mg PO DAILY 01/28/17 [History] Biotin 1,000 mcg PO DAILY 12/12/18 [History] Multivitamin [Multi-Day Vitamins] 1 tab PO DAILY 12/12/18 [History] Cholecalciferol (Vitamin D3) [Vitamin D3] 4,000 mg PO DAILY 02/17/21 [History] Past Medical History Cardiovascular History: Reports: Hypertension Gastrointestinal History: Reports: GERD, Hemorrhoids Other Gastrointestinal History: abd pain Genitourinary History: Reports: Pyelonephritis, UTI, Recurrent Other Genitourinary History: had incontinient episode with seizure last night 01/06/2018 0200 [employer] History: Reports: , Other (See Below) Other DOOR TO [employer] History: Hx of cysts on bilateral ovaries Musculoskeletal History: Reports: Other (See Below) Other Musculoskeletal History: SCIATICA Neurological History: Reports: Seizure Other Neuro History: seizures since 2012, from tramadol allergy Psychiatric History: Reports: Addiction, Anxiety, Depression Other Psychiatric History: opiates Hematologic History: Reports: Anemia, Iron Deficiency - Infectious Disease History Infectious Disease History: Reports: Chicken Pox, Novel Coronavirus - Past Surgical History Head Surgeries/Procedures: Reports: None HEENT Surgical History: Reports: None Cardiovascular Surgical History: Reports: None Respiratory Surgical History: Reports: None GI Surgical History: Reports: None Female Surgical History: Reports: None Endocrine Surgical History: Reports: None Neurological Surgical History: Reports: None Musculoskeletal Surgical History: Reports: None Dermatological Surgical History: Reports: None Social & Family History - Family History Family Medical History: No Pertinent Family History - Tobacco Use Tobacco Use Status *Q: Never Tobacco User - Caffeine Use Caffeine Use: Reports: None Other Caffeine Use: 1 energy drink/day. 2-3 cups coffee/day. - Recreational Drug Use Recreational Drug Use: No - Sexual History Sexual History: Reports: Same Sex Partner - Living Situation & Occupation Living situation: Reports: with Significant Other Occupation: Unemployed (lives with Same Sex partner, Ms. Rm has 4 children ages 2, 10, 14 and 17 yrs. lives in [facility] ED ROS GENERAL - Review of Systems Review Of Systems: See Below Constitutional: Reports: Malaise. Denies: Fever, Chills HEENT: Reports: No Symptoms. Denies: Throat Pain Respiratory: Reports: Shortness of Breath, Pleuritic Chest Pain. Denies: Wheezing, Cough, Hemoptysis Cardiovascular: Reports: Chest Pain. Denies: Palpitations GI/Abdominal: Reports: No Symptoms : Reports: No Symptoms Musculoskeletal: Reports: No Symptoms Skin: Reports: Other (Patient experiences blanching and cold hands when she wakes up in the morning) Neurological: Denies: Dizziness, Headache, Trouble Speaking, Weakness Psychiatric: Reports: Anxiety ED EXAM, GENERAL - Physical Exam Exam: See Below Exam Limited By: No Limitations General Appearance: Alert, Anxious Eye Exam: Bilateral Eye: Normal Inspection Head: Atraumatic Neck: Non-Tender. No: Lymphadenopathy (R), Lymphadenopathy (L) Respiratory/Chest: Lungs Clear, Other (Patient is very tender to localize palpation over the left lower lateral costochondral junction above the left breast) Cardiovascular: Regular Rate, Rhythm, No Murmur. No: Tachycardia, Extra Beats GI/Abdominal: Soft, Non-Tender Extremities: Normal Inspection. No: Pedal Edema, Joint Swelling Neurological: Alert, Oriented, No Motor/Sensory Deficits Psychiatric: Anxious Skin Exam: Warm, Dry #1 Interpretation EKG Date: 02/17/21 Time: 05:45 Rhythm: NSR Course - Vital Signs Last Recorded V/S: Last Vital Signs Temp 98.2 F 02/17/21 05:21 Pulse 80 02/17/21 05:21 Resp 16 02/17/21 05:21 BP 153/70 H 02/17/21 05:21 Pulse Ox 99 02/17/21 05:21 - Orders/Labs/Meds Orders: Active Orders 24 hr Category Date Time Status EKG 12 Lead [EK] Routine Ther 02/17/21 05:35 Ordered Labs: Laboratory Tests 02/17/21 02/17/21 02/17/21 Range/Units 06:00 06:00 06:00 WBC 7.1 (4.5-11.0) K/uL RBC 4.58 (3.30-5.50) M/uL Hgb 13.2 (12.0-15.0) g/dL Hct 39.3 (36.0-48.0) % MCV 86 (80-98) fL MCH 29 (27-31) pg MCHC 34 (32-36) % Plt Count 298 (150-400) K/uL Neut % (Auto) 48.2 (36-66) % Lymph % (Auto) 41.0 (24-44) % [place] % (Auto) 8.1 H (2-6) % Eos % (Auto) 2.1 (2-4) % Baso % (Auto) 0.6 (0-1) % D-Dimer, Quantitative 513.89 H (0.0-500.0) ng/mL Sodium 140 (140-148) mmol/L Potassium 3.6 (3.6-5.2) mmol/L Chloride 102 (100-108) mmol/L Carbon Dioxide 29 (21-32) mmol/L Anion Gap 9.4 (5.0-14.0) mmol/L BUN 12 (7-18) mg/dL Creatinine 0.9 (0.6-1.0) mg/dL Est Cr Clr Drug Dosing 69.00 mL/min Estimated GFR (MDRD) > 60 (>60) Glucose 105 (74-106) mg/dL Calcium 9.3 (8.5-10.1) mg/dL Total Bilirubin 0.3 (0.2-1.0) mg/dL AST 18 (15-37) U/L ALT 42 D (12-78) U/L Alkaline Phosphatase 88 (46-116) U/L Total Protein 7.8 (6.4-8.2) g/dL Albumin 3.9 (3.4-5.0) g/dL Globulin 3.9 H (2.3-3.5) g/dL Albumin/Globulin Ratio 1.0 L (1.2-2.2) TSH, Ultra Sensitive 0.935 (0.358-3.740) uIU/mL Meds: Medications Discontinued Medications Generic Name Dose Route Start Last Admin Trade Name Garrison PRN Reason Stop Dose Admin Ibuprofen 600 mg 02/17/21 05:56 02/17/21 06:08 Ibuprofen 600 Mg Tab PO 02/17/21 05:57 600 mg ONETIME ONE Administration - Re-Assessments/Exams Free Text/Narrative Re-Assessment/Exam: 02/17/21 05:58 This patient likely has costochondritis of the left anterior chest wall, however she has extreme anxiety about her health. EKG was normal, D-dimer, TSH, CBC and CMP were drawn. She was given 600 mg of ibuprofen. Departure - Departure Time of Disposition: 07:02 Disposition: Home, Self-Care 01 Clinical Impression: Costochondritis - Discharge Information Instructions: Costochondritis, [id number] Referrals: PCP,None [Primary Care Provider] - Forms: ED Department Discharge Care Plan Goals: Continue ibuprofen for the next few days and increase activity as tolerated. Consider rechecking in 2-3 days if not improving. Sepsis Event Note (ED) - Evaluation Sepsis Screening Result: No Definite Risk - My Orders Last 24 Hours: My Active Orders 02/17/21 05:35 EKG 12 Lead [EK] Routine - Assessment/Plan Last 24 Hours: My Active Orders 02/17/21 05:35 EKG 12 Lead [EK] Routine
[2021-02-17] MEDS ORDERED: Ibuprofen 600 MG Tab PO ONE (05:56)
== END 2021-02-17 07:03 | disposition home or self-care (01) ==
LOC: JP.ED 05:10
DX: M94.0 Chondrocostal junction syndrome [Tietze] (principal); I10 Essential (primary) hypertension; Z86.16 Personal history of COVID-19; Z88.5 Allergy status to narcotic agent
CPT/HCPCS: 36415; 80053; 84443; 85025; 85379; 93005; 99285; A9270

== ENCOUNTER 2022-01-05 08:30 | Emergency (ER) | payer MEDICAID ==
[2022-01-05 10:01] LABS: ESTIMATED GFR 98 mL/min (>60)
[2022-01-05] MEDS ORDERED: Calcium Carbonate 500 MG Tab.Chew PO ONE (10:34)
[2022-01-05] MEDS ORDERED: Potassium Chloride 20 MEQ Tab.ER PO ONE (10:44)
== END 2022-01-05 11:20 | disposition home or self-care (01) ==
LOC: JP.ED 08:30
DX: E83.51 Hypocalcemia (principal); E87.6 Hypokalemia; F41.9 Anxiety disorder, unspecified; I10 Essential (primary) hypertension; Z88.5 Allergy status to narcotic agent; Z79.899 Other long term (current) drug therapy; Z86.16 Personal history of COVID-19
CPT/HCPCS: 36415; 70450; 80053; 83735; 84443; 85025; 85651; 93005; 99284; A9270

== ENCOUNTER 2023-05-10 07:17 | Emergency (ER) | payer MEDICAID ==
[2023-05-10 08:17] LABS: CORONAVIRUS COVID-19 NAA NEGATIVE (NEGATIVE); INFLUENZA A NAA POSITIVE (NEGATIVE); INFLUENZA B NAA NEGATIVE (NEGATIVE); RESPIRATORY SYNCYTIAL VIR NAA NEGATIVE (NEGATIVE)
[2023-05-10] MEDS: Albuterol/Ipratropium 3.0-0.5 MG/3 ML Neb Soln NEB ONE (09:00)
[2023-05-10] MEDS: Acetaminophen 500 MG Tab PO ONE (09:20)
== END 2023-05-10 09:42 | disposition home or self-care (01) ==
LOC: JP.ED 07:17
DX: J11.1 Influenza due to unidentified influenza virus with other respiratory manifestations (principal); Z87.891 Personal history of nicotine dependence; Z86.16 Personal history of COVID-19; Z88.5 Allergy status to narcotic agent
CPT/HCPCS: 0241U; 94640; 99285; A9270; J7620

== ENCOUNTER 2023-06-16 09:08 | Emergency (ER) | payer MEDICAID ==
[2023-06-16 09:59] LABS: BASOPHILS ABSOLUTE AUTO 0.04 K/uL (0.00-0.10); BASOPHILS PERCENT AUTO 0.7 % (0.1-1.3); EOSINOPHILS ABSOLUTE AUTO 0.12 K/uL (0.00-0.40); EOSINOPHILS PERCENT AUTO 2.2 % (0.0-5.4); HEMATOCRIT 35.4 % (34.3-46.0); HEMOGLOBIN 11.8 g/dL (11.2-15.5); LYMPHOCYTES ABSOLUTE AUTO 2.31 K/uL (0.8-3.3); LYMPHOCYTES PERCENT AUTO 42.2 % (11.4-47.7); MEAN CORPUSCULAR HEMOGLOBIN 27.9 pg (31.6-35.5); MEAN CORPUSCULAR HGB CONC 33.3 g/dL (31.6-35.5); MEAN CORPUSCULAR VOLUME 83.7 fL (81.4-99.0); MONOCYTES ABSOLUTE AUTO 0.43 K/uL (0.20-0.90); MONOCYTES PERCENT AUTO 7.9 % (3.3-12.6); NEUTROPHILS ABSOLUTE AUTO 2.57 K/uL (1.0-7.6); PLATELET COUNT,PLT 195 K/uL (130-375); RED BLOOD CELL COUNT 4.23 M/uL (3.77-5.24); WHITE BLOOD CELL COUNT,WBC 5.5 K/uL (3.2-11.0)
[2023-06-16] MEDS: Aspirin 81 MG Tab.Chew PO ONE (10:06)
[2023-06-16] MEDS: LORazepam 2 MG/ML SDV IM ONE (10:06)
[2023-06-16 10:22] LABS: ANION GAP 13.7 mmol/L (5.0-14.0); CALCIUM 8.8 mg/dL (8.5-10.1); CREATININE 0.9 mg/dL (0.6-1.0); EST CRCL DRUG DOSING (CG) 67.69 mL/min; POTASSIUM,K 3.7 mmol/L (3.6-5.2); TROPONIN I HIGH SENSITIVITY 11.9 pg/mL (<=60.3)
== END 2023-06-16 11:12 | disposition home or self-care (01) ==
LOC: JP.ED 09:08
DX: F41.0 Panic disorder [episodic paroxysmal anxiety] (principal); I10 Essential (primary) hypertension; Z88.5 Allergy status to narcotic agent; Z79.899 Other long term (current) drug therapy
CPT/HCPCS: 36415; 80048; 84484; 85025; 93005; 96372; 99285; A9270; J2060; 93010; 99283

== ENCOUNTER 2024-03-30 21:43 | Emergency (ER) | payer MEDICAID ==
[2024-03-30 22:22] LABS: BASOPHILS ABSOLUTE AUTO 0.06 K/uL (0.00-0.10); BASOPHILS PERCENT AUTO 0.8 % (0.1-1.3); EOSINOPHILS ABSOLUTE AUTO 0.17 K/uL (0.00-0.40); EOSINOPHILS PERCENT AUTO 2.3 % (0.0-5.4); HEMATOCRIT 37.3 % (34.3-46.0); IMMATURE GRAN ABSOLUTE AUTO 0.02 K/uL (0.00-0.23); IMMATURE GRAN PERCENT AUTO 0.3 % (0.0-0.7); MEAN CORPUSCULAR HEMOGLOBIN 29.5 pg (31.6-35.5); MEAN CORPUSCULAR HGB CONC 34.9 g/dL (31.6-35.5); MEAN CORPUSCULAR VOLUME 84.6 fL (81.4-99.0); MONOCYTES ABSOLUTE AUTO 0.37 K/uL (0.20-0.90); MONOCYTES PERCENT AUTO 5.1 % (3.3-12.6); NEUTROPHILS ABSOLUTE AUTO 2.94 K/uL (1.0-7.6); NEUTROPHILS PERCENT AUTO 40.5 % (40.0-78.1); PLATELET COUNT,PLT 275 K/uL (130-375); RED BLOOD CELL COUNT 4.41 M/uL (3.77-5.24); WHITE BLOOD CELL COUNT,WBC 7.3 K/uL (3.2-11.0)
[2024-03-30] MEDS: Ketorolac 30 MG/ML SDV IM ONE (22:22)
[2024-03-30] MEDS: Acetaminophen 500 MG Tab PO ONE (22:24)
[2024-03-30 22:44] LABS: EST CRCL DRUG DOSING (CG) 60.33 mL/min; POTASSIUM,K 3.6 mmol/L (3.6-5.2); TROPONIN I HIGH SENSITIVITY 12.8 pg/mL (<=60.3)
[2024-03-30 22:49] LABS: ANION GAP 12.6 mmol/L (5.0-14.0)
== END 2024-03-30 23:34 | disposition home or self-care (01) ==
LOC: JP.ED 21:43
DX: R07.89 Other chest pain (principal); I10 Essential (primary) hypertension; Z88.5 Allergy status to narcotic agent; Z79.899 Other long term (current) drug therapy
CPT/HCPCS: 36415; 71046; 80048; 84484; 85025; 85379; 93005; 99285; A9270; 93010; 99284

== ENCOUNTER 2024-12-11 00:42 | Emergency (ER) | payer MEDICAID | END 2024-12-11 01:19 | disposition home or self-care (01) | LOC: JP.ED 00:42 | DX: K02.9 Dental caries, unspecified (principal); I10 Essential (primary) hypertension; Z88.5 Allergy status to narcotic agent; Z79.899 Other long term (current) drug therapy | CPT/HCPCS: 99283 ==

== ENCOUNTER 2024-12-29 15:10 | Emergency (ER) | payer MEDICAID | END 2024-12-29 16:38 | disposition home or self-care (01) | LOC: JP.ED 15:10 | DX: R55 Syncope and collapse (principal); I10 Essential (primary) hypertension; Z79.899 Other long term (current) drug therapy; Z88.8 Allergy status to other drugs, medicaments and biological substances; Z86.16 Personal history of COVID-19 | CPT/HCPCS: 93005; 93010; 99284 ==